=== PATIENT | female | born 1985 | race Caucasian/White ===

== ENCOUNTER 2019-07-27 04:53 | Emergency (ER) | payer OTHER, SELFPAY ==
--- OUTSIDE RECORDS SUMMARY | 2019-07-27 04:55 | XMS REPORT ---
:1985 Author [facility] Address [address] [place] [address] Dr. Hurst [address] [place] [address] Care Team Providers Name Role Phone Unavailable Unavailable Unavailable Problems This patient has no known problems. Allergies, Adverse Reactions, Alerts This patient has no known allergies or adverse reactions. Medications This patient has no known medications.
--- OUTSIDE RECORDS SUMMARY | 2019-07-27 04:56 | XMS REPORT | Summary of Care ---
:1985 Author Organization [facility] Address [address] [place] [address] Care Team Providers Name Role Phone Johny Mendez MD Primary Care Provider Reason for Visit Reason Comments Follow-up Pain Refill Request Encounter Details Date Type Department Care Team Description 07/04/2019 Office Visit [facility] Family Johny Mendez MD Lupus erythematosus, unspecified form (Primary Dx); [place] [address] [address] [facility] Arthralgia, unspecified joint; [facility] [address] Attention deficit disorder (ADD) without hyperactivity; [place], [place] Anxiety; [phone] Other chronic pain [phone] Allergies Active Allergy Reactions Severity Noted Date Comments Morphine Rash 12/04/2016 Sulfa (Sulfonamide Antibiotics) Anaphylaxis 09/20/2015 documented as of this encounter (statuses as of 07/04/2019) Medications Medication Sig Dispensed Refills Start End Date Status Date tiZANidine 4 mg tablet Take 1 tablet 60 tablet 3 Active by mouth 8 every 8 (eight) hours as needed for Pain (scale 4-6). fluocinonide 0.05 % Apply to 30 g 1 Active cream area(s) 2 8 (two) times daily. ondansetron 4 mg tablet Take 1 tablet 30 tablet 1 Active by mouth 8 every 8 (eight) hours as needed for Nausea and Vomiting (N/V). aspirin 81 mg chewable Take 1 tablet 90 tablet 2 Active tabletIndications: by mouth 9 Muscle spasm daily. benzonatate (TESSALON Take 1 20 capsule 0 Active PERLES) 100 mg capsule by 9 capsuleIndications: mouth 3 Acute URI (three) times daily. fluticasone 50 Use 2 Sprays 16 g 0 Active mcg/actuation nasal in each 9 sprayIndications: Acute nostril URI daily. hydroxychloroquine 200 Take 1 tablet 30 tablet 2 Active mg tabletIndications: by mouth 9 Lupus erythematosus, daily. unspecified form HYDROcodone-acetaminoph Take 1 tablet 120 tablet 0 Active en (NORCO) 10-325 mg by mouth 9 tabletIndications: every 6 (six) Other chronic pain hours as needed for Pain (scale 1-3), Pain (scale 4-6) or Pain (scale 7-10). diazePAM (VALIUM) 5 mg Take 1 tablet 90 tablet 1 Active tabletIndications: by mouth 3 9 Anxiety (three) times daily as needed for Muscle Spasms or Anxiety. dextroamphetamine-amphe Take 3 180 tablet 0 Active tamine 10 mg tablets by 9 tabletIndications: mouth 2 (two) Attention deficit times daily. disorder (ADD) without hyperactivity dextroamphetamine-amphe Take 3 180 tablet 0 07/04/20 Discontinued tamine 10 mg tablets by 9 19 tabletIndications: mouth 2 (two) Attention deficit times daily. disorder (ADD) without hyperactivity HYDROcodone-acetaminoph Take 1 tablet 120 tablet 0 07/04/20 Discontinued en (NORCO) 10-325 mg by mouth 9 19 tabletIndications: every 6 (six) Other chronic pain hours as needed for Pain (scale 1-3), Pain (scale 4-6) or Pain (scale 7-10). diazePAM (VALIUM) 5 mg Take 1 tablet 90 tablet 1 07/04/20 Discontinued tabletIndications: by mouth 3 9 19 Anxiety (three) times daily as needed for Muscle Spasms or Anxiety. documented as of this encounter (statuses as of 07/04/2019) Active Problems Patient Care Coordination Note I talked with Dr Worley. He will deliver Ms Gill. He said he could also do weekly BPPs at his office so she does not need NSTs with us at [facility] Problem Noted Date Numbness 01/07/2019 Positive RENAY (antinuclear antibody) 1:80 11/17/2018 Immunization counseling 11/17/2018 Fibromyalgia 11/17/2018 Obesity (BMI 30-39.9) 05/01/2018 38 weeks gestation of 05/01/2018 Arthralgia 05/01/2018 Previous section complicating 05/01/2018 Rupture, membranes, premature 05/01/2018 Liveborn by 05/01/2018 Previous delivery affecting , antepartum 04/15/2018 14 weeks gestation of 11/13/2017 Reactive airway disease with wheezing with acute exacerbation 11/13/2017 URI with cough and congestion 11/13/2017 Antiphospholipid antibody positive 10/22/2017 Previous delivery in first trimester, antepartum 10/22/2017 Lupus 04/20/2017 Right shoulder pain 11/27/2016 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 Anxiety 09/20/2015 Depression 09/20/2015 Joint pain 09/20/2015 Calculus of right kidney 09/20/2015 documented as of this encounter (statuses as of 07/04/2019) Immunizations Name Administration Dates Next Due Tdap 03/08/2018 documented as of this encounter Social History Tobacco Use Types Packs/Day Years Used Date Former Smoker Cigarettes 0.5 3 Quit: 01/16/2019 Smokeless Tobacco: Never Used Comments: 1 ppdx 10 years, Smokes marijuana daily Alcohol Use Drinks/Week oz/Week Comments No Sex Assigned at Date Recorded Not on file Job Start Date Occupation Industry Not on file Not on file Not on file Travel History Travel Start Travel End No recent travel history available. documented as of this encounter Last Filed Vital Signs Vital Sign Reading Time Taken Comments Blood Pressure 100/60 07/04/2019 2:52 PM CDT Pulse - - Temperature - - Respiratory Rate - - Oxygen Saturation - - Inhaled Oxygen Concentration - - Weight 63.5 kg (140 lb) 07/04/2019 2:52 PM CDT Height - - Body Mass Index 25.61 02/16/2019 10:43 AM CDT documented in this encounter Progress Notes Johny Mendez MD - 07/04/2019 3:00 PM CDT Cc: lupus, pain, Chela Renny Mcdermott is a 34 year old female. 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 Medications Outpatient Medications Prior to Visit Medication Sig Dispense Refill diazePAM (VALIUM) 5 mg tablet Take 1 tablet by mouth 3 (three) times daily as needed for Muscle Spasms or Anxiety. 90 tablet 1 HYDROcodone-acetaminophen (NORCO) 10-325 mg tablet Take 1 tablet by mouth every 6 (six) hours asneeded for Pain (scale 1-3), Pain (scale 4-6) or Pain ( scale 7-10). 120 tablet 0 fluticasone 50 mcg/actuation nasal spray Use 2 Sprays in each nostril daily. 16 g 0 benzonatate (TESSALON PERLES) 100 mg capsule Take 1 capsule by mouth 3 ( three) times daily. 20 capsule 0 dextroamphetamine-amphetamine 10 mg tablet Take 3 tablets by mouth 2 (two) times daily. 180 tablet 0 aspirin 81 mg chewable tablet Take 1 tablet by mouth daily. 90 tablet 2 ondansetron 4 mg tablet Take 1 tablet by mouth every 8 (eight) hours as needed for Nausea and Vomiting (N/V). 30 tablet 1 fluocinonide 0.05 % cream Apply to area(s) 2 (two) times daily. 30 g 1 tiZANidine 4 mg tablet Take 1 tablet by mouth every 8 (eight) hours as needed for Pain (scale 4-6). 60 tablet 3 No facility-administered medications prior to visit. Histories Past Medical History: Diagnosis Date ADHD (attention deficit hyperactivity disorder) Arthritis Endometriosis Lupus (systemic lupus erythematosus) Renal stones Right shoulder pain 11/27/2016 Suprascapular neuropathy, right SVT (supraventricular tachycardia) childhood only TIA (transient ischemic attack) august 2016. 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 Needs Financial resource strain: Not on file Food insecurity: Worry: Not on file Inability: Not on file Transportation needs: Medical: Not on file Non-medical: Not on file Tobacco Use Smoking status: Former Smoker Packs/day: 0.50 Years: 3.00 Pack years: 1.50 Types: Cigarettes Last attempt to quit: 01/16/2019 Years since quittin.4 Smokeless tobacco: Never Used Tobacco comment: 1 ppdx 10 years, Smokes marijuana daily Substance and Sexual Activity Alcohol use: No Drug use: Yes Comment: MARIJUANA EDIBLES Sexual activity: Yes Partners: Male control/protection: None Lifestyle Physical activity: Days per week: Not on file Minutes per session: Not on file Stress: Not on file Relationships Social connections: Talks on phone: Not on file Gets together: Not on file Attends judaism service: Not on file Active member of club or organization: Not on file Attends meetings of clubs or organizations: Not on file Relationship status: Not on file Intimate partner violence: Fear of current or ex partner: Not on file Emotionally abused: Not on file Physically abused: Not on file Forced sexual activity: Not on file Other Topics Concern Not on file Social History Narrative In a relationship, 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 Physical Exam Constitutional: She appears well-developed and well-nourished. HENT: Head: Normocephalic and atraumatic. Right Ear: External ear normal. Left Ear: External ear normal. Eyes: Pupils are equal, round, and reactive to light. EOM are normal. Cardiovascular: Normal rate, regular rhythm and normal heart sounds. Pulmonary/Chest: Effort normal. Abdominal: Soft. Musculoskeletal: She exhibits tenderness (neck tight). Skin: Skin is warm. Vitals reviewed. Assessment/Plan Lupus, pain flare Muscle spasm, valium prn, Neck pain ADD, medication refill This visit did not involve counseling and coordination that comprised more than 50% of the visit time.Electronically signed by Johny Mendez MD at 2018 3:03 PM CDTdocumented in this encounter Plan of Treatment Health Maintenance Due Date Last Done Comments VARICELLA VACCINES (1 of 2 - 13+ 1999 2-dose series) PAP SMEAR 2007 INFLUENZA VACCINE (#1) 2019 DTaP,Tdap,and Td Vaccines (2 - Td) 03/08/2028 03/08/2018 PNEUMOCOCCAL 0-64 YEARS COMBINED Aged Out No longer eligible based on SERIES patient's age to complete this topic documented as of this encounter Goals Goal Patient Goal Associated Recent Patient-Stated? Author Type Problems Progress Quit using Tobacco Use No [place], tobacco Siri Leiva MA (cigarettes, smokeless, etc) documented as of this encounter Results Not on filedocumented in this encounter Visit Diagnoses Diagnosis Lupus erythematosus, unspecified form - Primary Arthralgia, unspecified joint Attention deficit disorder (ADD) without hyperactivity Anxiety Anxiety state, unspecified Other chronic pain documented in this encounter Advance Directives Name Relationship Healthcare Agent Relationship Communication Fabiano Young Primary healthcare agent [email or web address]
--- OUTSIDE RECORDS SUMMARY | 2019-07-27 04:56 | XMS REPORT | Summary of Care ---
:1985 Author Organization [facility] Address [address] [place] [address] Care Team Providers Name Role Phone Johny Mendez MD Primary Care Provider Encounter Details Date Type Department Care Team Description 07/04/2019 Orders Only [facility] Doctor Unassigned, No [address] [facility] Name [place] [id number] [address] [facility] [place] [id number] Allergies Active Allergy Reactions Severity Noted Date Comments Morphine Rash 12/04/2016 Sulfa (Sulfonamide Antibiotics) Anaphylaxis 09/20/2015 documented as of this encounter (statuses as of 07/04/2019) Medications Medication Sig Dispensed Refills Start Date End Date Status tiZANidine 4 mg tablet Take 1 tablet by 60 tablet 3 08/05/2018 Active mouth every 8 (eight) hours as needed for Pain (scale 4-6). fluocinonide 0.05 % Apply to area(s) 30 g 1 10/06/2018 Active cream 2 (two) times daily. ondansetron 4 mg Take 1 tablet by 30 tablet 1 10/28/2018 Active tablet mouth every 8 (eight) hours as needed for Nausea and Vomiting (N/V). aspirin 81 mg chewable Take 1 tablet by 90 tablet 2 01/09/2019 Active tabletIndications: mouth daily. Muscle spasm dextroamphetamine-amph Take 3 tablets by 180 tablet 0 02/10/2019 Active etamine 10 mg mouth 2 (two) tabletIndications: times daily. Attention deficit disorder (ADD) without hyperactivity benzonatate (TESSALON Take 1 capsule by 20 capsule 0 02/16/2019 Active PERLES) 100 mg mouth 3 (three) capsuleIndications: times daily. Acute URI fluticasone 50 Use 2 Sprays in 16 g 0 02/22/2019 Active mcg/actuation nasal each nostril sprayIndications: daily. Acute URI HYDROcodone-acetaminop Take 1 tablet by 120 tablet 0 05/17/2019 Active hen (NORCO) 10-325 mg mouth every 6 tabletIndications: (six) hours as Other chronic pain needed for Pain (scale 1-3), Pain (scale 4-6) or Pain (scale 7-10). diazePAM (VALIUM) 5 mg Take 1 tablet by 90 tablet 1 05/17/2019 Active tabletIndications: mouth 3 (three) Anxiety times daily as needed for Muscle Spasms or Anxiety. documented as of this encounter (statuses as of 07/04/2019) Active Problems Patient Care Coordination Note I talked with Dr Worley. He will deliver Ms Gill. He said he could also do weekly BPPs at his office so she does not need NSTs with us at [facility] Problem Noted Date Numbness 01/07/2019 Positive RENAY [...] of this encounter Last Filed Vital Signs Not on filedocumented in this encounter Plan of Treatment Date Type Specialty Care Team Description 07/04/2019 Office Visit Family Medicine Johny Mendez MD [address] [place] [phone] Health Maintenance Due Date Last Done Comments [...] smokeless, etc) documented as of this encounter Procedures Procedure Name Priority Date/Time Associated Diagnosis Comments NO SHOW OR MISSED Routine 07/04/2019 2:45 PM APPOINTMENT POLICY CDT ACKNOWLEDGEMENT documented in this encounter Results Not on filedocumented in this encounter Advance Directives Name Relationship Healthcare Agent Relationship Communication Fabiano Young Primary healthcare agent [email or web address]
--- OUTSIDE RECORDS SUMMARY | 2019-07-27 04:56 | XMS REPORT | Summary of Care ---
:1985 Author Organization [facility] Address [address] [place] [address] Care Team Providers Name Role Phone Johny Mendez MD Primary Care Provider Reason for Visit Reason Comments Refill Request Encounter Details Date Type Department Care Team Description 06/21/2019 Refill [facility] Family Medicine Johny Mendez MD Refill Request - [place] [address] [place] [address] [place] [phone] Allergies Active Allergy Reactions Severity Noted Date Comments Morphine Rash 12/04/2016 Sulfa (Sulfonamide Antibiotics) Anaphylaxis 09/20/2015 documented as of this encounter (statuses as of 06/22/2019) Medications Medication Sig Dispensed Refills Start Date [...] as of this encounter (statuses as of 06/22/2019) Active Problems Patient Care Coordination Note I talked with Dr Worley. He will deliver Ms Gill. He said he could also do weekly BPPs at his office so she does not need NSTs with us at [facility] Problem Noted Date Numbness 01/07/2019 Positive RENAY [...] as of this encounter (statuses as of 06/22/2019) Immunizations Name Administration Dates Next Due Tdap [...] filedocumented in this encounter Plan of Treatment Health Maintenance Due Date Last Done Comments VARICELLA VACCINES (1 of 2 - 13+ 1999 2-dose series) PAP SMEAR 2007 INFLUENZA VACCINE 07/10/2019 DTaP,Tdap,and Td Vaccines (2 - Td) 03/08/2028 03/08/2018 PNEUMOCOCCAL 0-64 YEARS COMBINED Aged Out No longer eligible based on SERIES patient's age to complete this topic documented as of this encounter Goals Goal Patient Goal Associated Recent Patient-Stated? Author Type Problems Progress Quit using Tobacco Use No [place], tobacco Siri Leiva MA (cigarettes, smokeless, etc) documented as of this encounter Results Not on filedocumented in this encounter Visit Diagnoses Diagnosis Attention deficit disorder (ADD) without hyperactivity Other chronic pain documented in this encounter Insurance Payer Benefit Plan / Subscriber ID Effective Dates Phone Address Type Group [facility] [id number] 2018-Prese HMO/PPO/ HEALTHCARE HEALTHCARE PPO nt S documented as of this encounter Advance Directives Name Relationship Healthcare Agent Relationship Communication Fabiano Mcelroy Other Primary healthcare agent [phone]
--- OUTSIDE RECORDS SUMMARY | 2019-07-27 04:56 | XMS REPORT | Summary of Care ---
:1985 Author Organization [facility] Address [address] [place] [address] Care Team Providers Name Role Phone Johny Mendez MD Primary Care Provider Reason for Visit Reason Comments Follow-up Pain Refill Request Encounter Details Date Type Department Care Team Description 07/04/2019 Office Visit [facility] Family Johny Mendez MD Lupus erythematosus, unspecified form (Primary Dx); [place] [address] [address] [facility] Arthralgia, unspecified joint; [facility] 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 Allergies Chela is allergic to morphine and [...] N/A 05/07/2018 Surgeon: Olvin Worley MD; Location: [facility] Labor and Delivery OR Location CHOLECYSTECTOMY FUNDOPLICATION OOPHORECTOMY Right REMOVAL OF FALLOPIAN TUBE TONSILLECTOMY Social History Socioeconomic History Marital status: Single Spouse name: Not on file Number of children: Not on file Years of education: Not on file Highest education level: Not on file Occupational History 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
--- OUTSIDE RECORDS SUMMARY | 2019-07-27 04:56 | XMS REPORT | Summary of Care ---
:1985 Author Organization [facility] Address [address] [place] [address] Care Team Providers Name Role Phone Johny Mendez MD Primary Care Provider Reason for Visit Reason Comments Follow-up Pain Refill Request Encounter Details Date Type Department Care Team Description 07/04/2019 Office Visit [facility] Family Johny Mendez MD Lupus erythematosus, unspecified form (Primary Dx); [place] [address] [address] [facility] Arthralgia, unspecified joint; [facility] 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 Allergies Chela is allergic to morphine and [...] N/A 05/07/2018 Surgeon: Olvin Worley MD; Location: [facility] Labor and Delivery OR Location CHOLECYSTECTOMY FUNDOPLICATION OOPHORECTOMY Right REMOVAL OF FALLOPIAN TUBE TONSILLECTOMY Social History Socioeconomic History Marital status: Single Spouse name: Not on file Number of children: Not on file Years of education: Not on file Highest education level: Not on file Occupational History 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
--- OUTSIDE RECORDS SUMMARY | 2019-07-27 04:57 | XMS REPORT | Summary of Care ---
:1985 Author Organization [facility] Address [address] [place] [address] Care Team Providers Name Role Phone Johny Mendez MD Primary Care Provider Reason for Visit Reason Comments Follow-up Pain Refill Request Encounter Details Date Type Department Care Team Description 07/04/2019 Office Visit [facility] Family Johny Mendez MD Lupus erythematosus, unspecified form (Primary Dx); [place] [address] [address] [facility] Arthralgia, unspecified joint; [facility] 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 Allergies Chela is allergic to morphine and [...] N/A 05/07/2018 Surgeon: Olvin Worley MD; Location: [facility] Labor and Delivery OR Location CHOLECYSTECTOMY FUNDOPLICATION OOPHORECTOMY Right REMOVAL OF FALLOPIAN TUBE TONSILLECTOMY Social History Socioeconomic History Marital status: Single Spouse name: Not on file Number of children: Not on file Years of education: Not on file Highest education level: Not on file Occupational History 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
[2019-07-27 06:04] LABS: Absolute Lymphocytes (CBC) 2.2 K/uL (0.7-4.9); Basophils % 0.7 % (0-1.3); Lymphocytes % 31.7 % (15.3-44.8); MPV 7.7 fL (7.6-11.3)
[2019-07-27 06:06] LABS: Protime INR 1.01
[2019-07-27 06:15] LABS: BUN Blood Urea Nitrogen 12 mg/dL (7-18); Bicarbonate 25 mmol/L (21-32); Glucose Level 83 mg/dL (74-106); Potassium 3.7 mmol/L (3.5-5.1); Sodium Level 142 mmol/L (136-145); Troponin (Emerg Dept Use Only) < 0.02 ng/mL (0.0-0.045)
[2019-07-27] MEDS ORDERED: dexAMETHasone 10 MG/ML VIAL ONE (06:52)
[2019-07-27] MEDS ORDERED: FENTANYL CITR 100 MCG/2 ML ONE (06:53)
[2019-07-27] MEDS ORDERED: LIDOCAINE 5% PATCH TD ONE (07:15)
--- NOTE | 2019-07-27 07:25 | EKG ---
Test Date: 2019-07-27 Test Time: 05:25:48 Pole Tester: BONNIE MEASUREMENT RESULTS: Intervals: Rate: 67 ID: [id number] QRSD: 88 QT: 416 QTc: 439 [place]: P: 53 ID: [id number] QRS: 81 T: 62 INTERPRETIVE STATEMENTS: Normal sinus rhythm Low voltage QRS Septal infarct, age undetermined T wave abnormality, consider anterior ischemia Abnormal ECG Compared to ECG 03/02/2017 15:52:25 Low QRS voltage now present Myocardial infarct finding now present T-wave abnormality now present Possible ischemia now present Sinus arrhythmia no longer present Electronically Signed On 07-27-19 07:24:59 CDT by Rob Núñez
--- NOTE | 2019-07-27 07:39 | ER ---
Nurse's Notes [facility] Name: Chela Mcdermott Age: 34 yrs Sex: Female : 1985 Arrival Date: 07/27/2019 Time: 04:55 Bed 16 Private MD: Diagnosis: Muscle spasm-back and neck;Radiculopathy, cervical region Presentation: 07/27 05:10 Presenting complaint: Patient states: "I have lupus so this is pretty complicated. I jd3 have nerve damage in my neck and have had a blood clot before and I am scare that has happened again. I also have had the sack around my heart inflamed and I am worried that it is getting that way again. my heart feels like it is burning. I also took my blood pressure at home and it was reading very high.". Transition of care: patient was not received from another setting of care. Acute neurological deficit: none identified. Onset of symptoms was July 27, 2019. Risk Assessment: Do you want to hurt yourself or someone else? Patient reports no desire to harm self or others. Initial Sepsis Screen: Does the patient meet any 2 criteria? No. Patient's initial sepsis screen is negative. Does the patient have a suspected source of infection? No. Patient's initial sepsis screen is negative. Care prior to arrival: None. 05:10 Method Of Arrival: Ambulatory jd3 05:10 Acuity: JESUS 3 jd3 Historical: - Allergies: 05:17 Morphine; jd3 05:17 Sulfa (Sulfonamide Antibiotics); jd3 - Home Meds: 05:17 Adderall XR 30 mg Oral cp24 1 cap once daily [Active]; aspirin 325 mg Oral tab 1 tab jd3 twice a day [Active]; hydrocodone-acetaminophen 10-325 mg Oral tab 1 tab every 4 hours [Active]; Valium 5 mg Oral tab 1 tab 3 times per day [Active]; Plaquenil Oral [Active]; - PMHx: 05:17 APLS; Lupus; PE; Suprascapular neuropathy; SVT; jd3 - PSHx: 05:17 ; Cholecystectomy; Appendectomy; knee; Tonsillectomy; Ear Tubes; ablation; jd3 tubal preg; - Immunization history:: Adult Immunizations up to date. - Social history:: Smoking status: Patient uses tobacco products, smokes one pack cigarettes per day. - Ebola Screening: : Patient negative for fever greater than or equal to 101.5 degrees Fahrenheit, and additional compatible Ebola Virus Disease symptoms. Screenin:18 Abuse screen: Denies threats or abuse. Nutritional screening: No deficits noted. jd3 Tuberculosis screening: No symptoms or risk factors identified. Fall Risk Ambulatory Aid- None/Bed Rest/Nurse Assist (0 pts). Gait- Normal/Bed Rest/Wheelchair (0 pts) Mental Status- Oriented to own ability (0 pts). Total Infante Fall Scale indicates No Risk (0-24 pts). Assessment: 05:30 General: Appears in no apparent distress. comfortable, Behavior is calm, cooperative, aa1 appropriate for age. Pain: Complains of pain in scalp, right lateral posterior chest, right lateral anterior chest and neck. Neuro: Level of Consciousness is awake, alert, obeys commands, Oriented to person, place, time, situation, Moves all extremities. Full function Gait is steady, Speech is normal. Cardiovascular: Reports chest pain, Denies diaphoresis, nausea, palpitations, shortness of breath, Heart tones S1 S2 present Capillary refill < 3 seconds Clubbing of nail beds is absent JVD is absent Patient's skin is warm and dry. Rhythm is regular. Respiratory: Airway is patent Respiratory effort is even, unlabored, Respiratory pattern is regular, symmetrical. GI: No signs and/or symptoms were reported involving the gastrointestinal system. : No signs and/or symptoms were reported regarding the genitourinary system. EENT: No signs and/or symptoms were reported regarding the EENT system. Derm: Skin is intact, is healthy with good turgor, Skin is pink, warm \\T\\ dry. Musculoskeletal: Circulation, motion, and sensation intact. Capillary refill < 3 seconds. 07:00 Reassessment: Patient appears in no apparent distress at this time. Patient and/or ph family updated on plan of care and expected duration. Pain level reassessed. Patient is alert, oriented x 3, equal unlabored respirations, skin warm/dry/pink. 08:00 Reassessment: Patient appears in no apparent distress at this time. Patient and/or ph family updated on plan of care and expected duration. Pain level reassessed. Patient is alert, oriented x 3, equal unlabored respirations, skin warm/dry/pink. Pt reports pain relief after lidocaine patch, states, Its working better than the shots they gave me earlier.. Vital Signs: 05:17 BP 135 / 93; Pulse 78; Resp 19 S; Temp 97.8(O); Pulse Ox 97% on R/A; Weight 58.97 kg jd3 (R); Height 5 ft. 2 in. (157.48 cm) (R); Pain 8/10; 07:00 BP 140 / 82; Pulse 71; Resp 16; Pulse Ox 98% on R/A; ph 08:00 BP 125 / 61; Pulse 72; Resp 18; Temp 97.8; Pulse Ox 99% on R/A; ph 05:17 Body Mass Index 23.78 (58.97 kg, 157.48 cm) jd3 ED Course: 04:55 Patient arrived in ED. ds1 05:09 Kvng Boggs, RN is Primary Nurse. jd3 05:13 Triage completed. jd3 05:18 Arm band placed on. jd3 05:18 Patient has correct armband on for positive identification. Bed in low position. Call j light in reach. Side rails up X 1. 05:32 EKG done, by ED staff, reviewed by Burton Villalpando MD. jd3 05:45 Initial lab(s) drawn, by me, sent to lab. Missed attempt(s): 22 gauge in left aa1 antecubital area. Bleeding controlled, band aid applied, catheter tip intact. 05:57 XRAY Chest (1 view) In Process Unspecified. EDMS 06:06 [facility] pm1 06:06 Burton Villalpando MD is Attending Physician. pm1 07:49 Branden Junior MD is Referral Physician. pm1 08:09 No provider procedures requiring assistance completed. Patient did not have IV access ph during this emergency room visit. Administered Medications: 06:52 Drug: fentaNYL (PF) 50 mcg {Note: RASS 0.} Route: IM; Site: left deltoid; aa1 08:04 Follow up: Response: No adverse reaction ph 08:12 Follow up: Response: No adverse reaction; RASS: Drowsy (-1) ph 06:52 Drug: Decadron 10 mg Route: IM; Site: left deltoid; aa1 08:13 Follow up: Response: No adverse reaction ph 07:40 Dru% lidocaine patch 1 patches Route: Topical; Site: affected area; ph 08:12 Follow up: Response: No adverse reaction; Pain is decreased ph 08:00 Drug: TORadol 60 mg Route: IM; Site: right deltoid; ph 08:13 Follow up: Response: No adverse reaction; Medication administered at discharge. ph Outcome: 07:38 Discharge ordered by MD. pm1 08:10 Discharged to home ambulatory, with significant other. ph 08:10 Condition: improved 08:10 Discharge instructions given to patient, Instructed on discharge instructions, follow up and referral plans. medication usage, Demonstrated understanding of instructions, follow-up care, medications, Prescriptions given X 2. 08:12 Patient left the ED. ph Signatures: Dispatcher [employer] EDMS Sarahy Wasserman RN RN aa1 Fanny Adams ds1 Mary Lou Mckinley RN RN ph Kervin Avila, JORDON HYDRAULIC TESTER pm1 Kvgn Boggs RN RN jd3 Corrections: (The following items were deleted from the chart) 08:13 08:04 Response: No adverse reaction ph ph
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
--- NOTE | 2019-07-27 07:42 | RAD REPORT ---
EXAM DESCRIPTION: Severo Single View07/27/2019 5:56 am CLINICAL HISTORY: Chest pain COMPARISON: 2017 FINDINGS: The lungs appear clear of acute infiltrate. The heart is normal size IMPRESSION: No acute abnormalities displayed
[2019-07-27] MEDS ORDERED: KETOROLAC 30 MG/ML INJ ONE (07:51)
[2019-07-27 08:19] VITALS: TEMP 97.8
[2019-07-27 08:22] VITALS: BP 125/61; O2SAT 99
== END 2019-07-27 08:12 | disposition home or self-care (01) ==
LOC: ER 04:53
DX: M54.12 Radiculopathy, cervical region (principal); M62.830 Muscle spasm of back; M62.838 Other muscle spasm; F17.210 Nicotine dependence, cigarettes, uncomplicated; Z79.82 Long term (current) use of aspirin; Z88.2 Allergy status to sulfonamides; Z88.5 Allergy status to narcotic agent
CPT/HCPCS: 36415; 71045; 80048; 84484; 85025; 85610; 93005; 96372; 99284; J1100; J3010

== ENCOUNTER 2020-06-03 04:38 | Emergency (ER) | payer SELFPAY ==
--- OUTSIDE RECORDS SUMMARY | 2020-06-03 04:41 | XMS REPORT | Continuity of Care Document ---
:1985 Author Organization [facility] t Address [address] [place] [address] Care Team Providers Name Role Phone Andrea PIÑA Attending Clinician Problems This patient has no known problems. Allergies, Adverse Reactions, Alerts This patient has no known allergies or adverse reactions. Medications This patient has no known medications. Procedures This patient has no known procedures. Encounters Start End Encounter Admission Attending Care Care Encounter Source Date/Time Date/Time Type Type Clinicians Facility Department ID 2020-05-31 2020-05-31 [id number] 00:00:00 00:00:00 [facility] [id number] [place] [id number] [place] [phone] nal [address] 2020-05-02 2020-05-02 Office Andrea [facility] [id number] 09:22:36 09:37:36 Visit Johny Lazcano [id number] [place] [id number] [facility] [phone] nal 044 Building Results This patient has no known results.
--- OUTSIDE RECORDS SUMMARY | 2020-06-03 04:41 | XMS REPORT | Summary of Care ---
:1985 Author Organization [facility] Address [address] [place] [id number] Care Team Providers Name Role Phone MD Andrea Primary Care Provider Reason for Visit Reason Comments Assessment triage call Encounter Details Date Type Department Care Team Description 03/05/2020 Telephone [facility] Family Delfino Mendez MD Assessment (triage Medicine - [place] [address] call) [facility] [place] [id number] Allergies Active Allergy Reactions Severity Noted Date Comments Morphine Rash 12/04/2016 Sulfa (Sulfonamide Antibiotics) Anaphylaxis 5 documented as of this encounter (statuses as of 03/05/2020) Medications Medication Sig Dispensed Refills Start Date End Date Status fluocinonide 0.05 % cream Apply to 30 g 1 10/06/2018 Active area(s) 2 (two) times daily. ondansetron 4 mg tablet Take 1 tablet 30 tablet 1 10/28/2018 Active by mouth every 8 (eight) hours as needed for Nausea and Vomiting (N/V). aspirin 81 mg chewable Take 1 tablet 90 tablet 2 01/09/2019 Active tabletIndications: Muscle by mouth spasm daily. benzonatate (TESSALON Take 1 capsule 20 capsule 0 02/16/2019 Active PERLES) 100 mg by mouth 3 capsuleIndications: Acute (three) times URI daily. fluticasone 50 Use 2 Sprays 16 g 0 02/22/2019 A ctive mcg/actuation nasal in each sprayIndications: Acute nostril daily. 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 unspecified form CHERATUSSIN AC 10-100 TAKE FIVE (5) 8 oz 0 08/25/2019 Active mg/5 mL ML(S) BY MOUTH solutionIndications: EVERY FOUR Bronchitis HOURS NEEDED FOR COUGH. clarithromycin (BIAXIN) Take 1 tablet 14 tablet 0 08/31/2019 Active 500 mg tabletIndications: by mouth every Bronchitis 12 (twelve) hours. promethazine-codeine Take 5 mL by 8 oz 0 09/01/2019 Active 6.25-10 mg/5 mL mouth 4 (four) syrupIndications: times daily as Bronchitis needed for Cough. tiZANidine 4 mg Take 1 tablet 60 tablet 3 10/04/2019 Active tabletIndications: Other by mouth every chronic pain 8 (eight) hours as needed for Pain (scale 4-6). dextroamphetamine-ampheta Take 3 tablets 180 tablet 0 12/22/19 20 Active mine 10 mg by mouth 2 tabletIndications: (two) times Attention deficit daily. disorder (ADD) without hyperactivity DIAZEPAM 5 mg TAKE ONE (1) 90 tablet 0 01/26/2020 Ac tive tabletIndications: TABLET(S) BY Anxiety MOUTH THREE TIMES A DAY NEEDED FOR MUSCLE SPASMS OR ANXIETY. HYDROcodone-acetaminophen Take 1 tablet 120 tablet 0 0 Active (NORCO) 10-325 mg by mouth every tabletIndications: Other 6 (six) hours chronic pain as needed for Pain (scale 1-3), Pain (scale 4-6) or Pain (scale 7-10). documented as of this encounter (statuses as of 03/05/2020) Active Problems Patient Care Coordination Note I talked with Dr Worley. He will deliver Ms Gill. He said he could also do weekly BPPs at his office so she does not need NSTs with us at [facility] Problem Noted Date Numbness 01/07/2019 Positive LUCIEN (antinuclear antibody) 1:80 11/17/2018 Immunization counseling 11/17/2018 Fibromyalgia 11/17/2018 Obesity (BMI 30-39.9) 05/01/2018 38 weeks gestation of 05/01/2018 Arthralgia 05/01/2018 Previous section complicating 05/01 Rupture, membranes, premature 05/01/2018 Liveborn by 05/01/2018 Previous delivery affecting , antepa rtum 04/15/2018 14 weeks gestation of 11/13/2017 Reactive airway disease with wheezing with acute exace rbation 11/13/2017 URI with cough and congestion 11/13/2017 Antiphospholipid antibody positive 10/22/2017 Previous delivery in first trimester, antepart um 10/22/2017 Lupus 04/20/2017 Right shoulder pain 11/27/2016 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 Anxiety 09/20/2015 Depression 09/20/2015 Joint pain 09/20/2015 Calculus of right kidney 09/20/2015 documented as of this encounter (statuses as of 03/05/2020) Immunizations Name Administration Dates Next Due Tdap 03/08/2018 documented as of this encounter Social History Tobacco Use Types Packs/Day Years Used Date Former Smoker Cigarettes 0.5 3 Quit: 01/17/20 19 Smokeless Tobacco: Never Used Comments: 1 ppdx 10 years, Smokes mariju lucien daily Alcohol Use Drinks/Week oz/Week Comments No [...] Treatment Date Type Specialty Care Team Description 03/05/2020 Telemedicine Visit Family Medicine Care, Provider 12 - Adult Urgent Health Maintenance Due Date Last Done Comments VARICELLA VACCINES (1 of 2 - 2-dose childhood series) 1987 PNEUMOCOCCAL 0-64 YEARS COMBINED SERIES (1 of 1 - 1992 PPSV23) PAP SMEAR 2007 INFLUENZA VACCINE (#1) 2019 DTaP,Tdap,and Td Vaccines (2 - Td) 03/08/2028 03/08/2018 documented as of this encounter Goals Goal Patient Goal Associated Recent Patient-Stated? Author Type Problems Progress Quit using Tobacco Use No [place], tobacco Siri Leiva MA (cigarettes, smokeless, etc) documented as of this encounter Results Not on filedocumented in this encounter Advance Directives Name Relationship Healthcare Agent Relationship Co mmunication Fabiano Mcelroy Other Primary healthcare agent
--- OUTSIDE RECORDS SUMMARY | 2020-06-03 04:42 | XMS REPORT | Summary of Care ---
:1985 Author Organization [facility] Address [address] [place] [address] Care Team Providers Name Role Phone MD Andrea Primary Care Provider Reason for Visit Reason Comments Refill Request Encounter Details Date Type Department Care Team Description 04/03/2020 Refill [facility] Family Medicine Johny Starr MD Refill Request - [address] [address] [place] [address] [phone] Allergies Active Allergy Reactions Severity Noted Date Comments Morphine Rash 12/04/2016 Sulfa (Sulfonamide Antibiotics) Anaphylaxis 5 documented as of this encounter (statuses as of 04/04/2020) Medications Medication Sig Dispensed Refills Start Date [...] Pain (scale 4-6) or Pain (scale 7-10). mupirocin 2 % Apply to 30 g 0 03/05/2020 Activ e ointmentIndications: area(s) 3 Puncture wound of great (three) times toe of right foot, daily. initial encounter documented as of this encounter (statuses as of 04/04/2020) Active Problems Patient Care Coordination Note I talked with Dr Worley. He will deliver Ms Gill. He said he could also do weekly BPPs at his office so she does not need NSTs with us at [facility] Problem Noted Date Numbness 01/07/2019 Positive LUCIEN [...] as of this encounter (statuses as of 04/04/2020) Immunizations Name Administration Dates Next Due Tdap [...] 1992 PPSV23) PAP SMEAR 2007 INFLUENZA VACCINE (Season Ended) 2020 DTaP,Tdap,and Td Vaccines (2 - Td) 03/08/2028 03/08/2018 documented as of this encounter Goals Goal Patient Goal Associated Recent Patient-Stated? Author Type Problems Progress Quit using Tobacco Use No Talamantes, tobacco Siri Leiva MA (cigarettes, smokeless, etc) documented as of this encounter Results Not on filedocumented in this encounter Visit Diagnoses Diagnosis Anxiety Anxiety state, unspecified Attention deficit disorder (ADD) without hyperactivity Other chronic pain documented in this encounter Advance Directives Name Relationship Healthcare Agent Relationship Co mmunication Fabiano Young Primary healthcare agent
--- OUTSIDE RECORDS SUMMARY | 2020-06-03 04:42 | XMS REPORT | Summary of Care ---
:1985 Author Organization [facility] Address [address] [place] [address] Care Team Providers Name Role Phone MD Andrea Primary Care Provider Reason for Visit Reason Comments Refill Request Encounter Details Date Type Department Care Team Description 03/27/2020 Refill [facility] Family Medicine Johny Starr MD Refill Request - [address] [address] [place] [address] [phone] Allergies Active Allergy Reactions Severity Noted Date Comments Morphine Rash 12/04/2016 Sulfa (Sulfonamide Antibiotics) Anaphylaxis 5 documented as of this encounter (statuses as of 03/28/2020) Medications Medication Sig Dispensed Refills Start Date [...] as of this encounter (statuses as of 03/28/2020) Active Problems Patient Care Coordination Note I talked with Dr Worley. He will deliver Ms Gill. He said he could also do weekly BPPs at his office so she does not need NSTs with us at [facility] Problem Noted Date Numbness 01/07/2019 [...] as of this encounter (statuses as of 03/28/2020) Immunizations Name Administration Dates Next Due Tdap [...] Visit Diagnoses Diagnosis Anxiety Anxiety state, unspecified documented in this encounter Advance Directives Name Relationship Healthcare Agent Relationship Co mmunication Fabiano Young Primary healthcare agent
--- OUTSIDE RECORDS SUMMARY | 2020-06-03 04:43 | XMS REPORT | Summary of Care ---
:1985 Author Organization [facility] Address [address] [place] [address] Care Team Providers Name Role Phone MD Andrea Primary Care Provider Reason for Visit Reason Comments Refill Request Encounter Details Date Type Department Care Team Description 04/16/2020 Telephone [facility] Family Delfino Mendez MD Refill Request [address] [place] [address] [place] [address] [phone] Allergies Active Allergy Reactions Severity Noted Date Comments Morphine Rash 12/04/2016 Sulfa (Sulfonamide Antibiotics) Anaphylaxis 5 documented as of this encounter (statuses as of 04/16/2020) Medications Medication Sig Dispensed Refills Start End Date Status Date fluocinonide 0.05 % Apply to 30 g 1 Active cream area(s) 2 8 (two) times daily. ondansetron 4 mg Take 1 30 tablet 1 Act nayan tablet tablet by 8 mouth every 8 (eight) hours as needed for Nausea and Vomiting (N/V). aspirin 81 mg chewable Take 1 90 tablet 2 Active tabletIndications: tablet by 9 Muscle spasm mouth daily. benzonatate (TESSALON Take 1 20 capsule 0 Active PERLES) 100 mg capsule by 9 capsuleIndications: mouth 3 Acute URI (three) times daily. fluticasone 50 Use 2 Sprays 16 g 0 Ac tive mcg/actuation nasal in each 9 sprayIndications: nostril Acute URI daily. hydroxychloroquine 200 Take 1 30 tablet 2 Active mg tabletIndications: tablet by 9 Lupus erythematosus, mouth daily. unspecified form CHERATUSSIN AC 10-100 TAKE FIVE 8 oz 0 Active mg/5 mL (5) ML(S) BY 9 solutionIndications: MOUTH EVERY Bronchitis FOUR HOURS NEEDED FOR COUGH. clarithromycin Take 1 14 tablet 0 Activ e (BIAXIN) 500 mg tablet by 9 tabletIndications: mouth every Bronchitis 12 (twelve) hours. promethazine-codeine Take 5 mL by 8 oz 0 Active 6.25-10 mg/5 mL mouth 4 9 syrupIndications: (four) times Bronchitis daily as needed for Cough. dextroamphetamine-amph Take 3 180 tablet 0 Active etamine 10 mg tablets by 0 tabletIndications: mouth 2 Attention deficit (two) times disorder (ADD) without daily. hyperactivity DIAZEPAM 5 mg TAKE ONE (1) 90 tablet 0 Act nayan tabletIndications: TABLET(S) BY 0 Anxiety MOUTH THREE TIMES A DAY NEEDED FOR MUSCLE SPASMS OR ANXIETY. mupirocin 2 % Apply to 30 g 0 Active ointmentIndications: area(s) 3 0 Puncture wound of (three) great toe of right times daily. foot, initial encounter tiZANidine 4 mg Take 1 60 tablet 3 Acti ve tabletIndications: tablet by 0 Other chronic pain mouth every 8 (eight) hours as needed for Pain (scale 4-6). HYDROcodone-acetaminop Take 1 120 tablet 0 Active hen (NORCO) 10-325 mg tablet by 0 tabletIndications: mouth every Other chronic pain 6 (six) hours as needed for Pain (scale 1-3), Pain (scale 4-6) or Pain (scale 7-10). tiZANidine 4 mg Take 1 60 tablet 3 04/16/20 Disc ontinued tabletIndications: tablet by 9 20 ( Reorder) Other chronic pain mouth every 8 (eight) hours as needed for Pain (scale 4-6). HYDROcodone-acetaminop Take 1 120 tablet 0 Discontinued hen (NORCO) 10-325 mg tablet by 0 20 (Reorder) tabletIndications: mouth every Other chronic pain 6 (six) hours as needed for Pain (scale 1-3), Pain (scale 4-6) or Pain (scale 7-10). documented as of this encounter (statuses as of 04/16/2020) Active Problems Patient Care Coordination Note I talked with Dr Worley. He will deliver Ms Gill. He said he could also do weekly BPPs at his office so she does not need NSTs with us at [facility] Problem Noted Date Numbness 01/07/2019 Positive LUCIEN [...] as of this encounter (statuses as of 04/16/2020) Immunizations Name Administration Dates Next Due Tdap [...] Treatment Date Type Specialty Care Team Description 05/02/2020 Office Visit Family Medicine Johny Mendez MD [address] [place] [address] [phone] Health Maintenance Due Date Last Done Comments VARICELLA VACCINES (1 of 2 - 2-dose childhood series) 1987 PNEUMOCOCCAL 0-64 YEARS COMBINED SERIES (1 of 1 - 1992 PPSV23) PAP SMEAR 2007 Depression Screening 07/04/2020 07/04/2019 INFLUENZA VACCINE (Season Ended) 2020 DTaP,Tdap,and Td Vaccines (2 - Td) 03/08/2028 03/08/2018 documented as of this encounter Goals Goal Patient Goal Associated Recent Patient-Stated? Author Type Problems Progress Quit using Tobacco Use No Talamantes, tobacco Siri Leiva MA (cigarettes, smokeless, etc) documented as of this encounter Results Not on filedocumented in this encounter Visit Diagnoses Diagnosis Other chronic pain documented in this encounter Advance Directives Name Relationship Healthcare Agent Relationship Co mmunication Fabiano Young Primary healthcare agent
--- OUTSIDE RECORDS SUMMARY | 2020-06-03 04:44 | XMS REPORT | Summary of Care ---
:1985 Author Organization [facility] Address [address] [place] [address] Care Team Providers Name Role Phone MD Andrea Primary Care Provider Reason for Visit Reason Comments Follow-up Refill Request Encounter Details Date Type Department Care Team Description 05/02/2020 Office Visit [facility] Johny Mendez Attention d eficit disorder (ADD) without hyperactivity (Primary Dx); Pediatric and Adult MD Anxiety; Primary Care- [address] [place] [address] Chronic rig t shoulder pain; [facility] Arthralgia, unspecified joint [address] [place] [address], [address] [address] [place], [place] [phone] [address] [phone] Allergies Active Allergy Reactions Severity Noted Date Comments Morphine Rash 12/04/2016 Sulfa (Sulfonamide Antibiotics) Anaphylaxis 5 documented as of this encounter (statuses as of 05/02/2020) Medications Medication Sig Dispensed Refills Start End [...] times Bronchitis daily as needed for Cough. mupirocin 2 % Apply to 30 g [...] Pain (scale 4-6) or Pain (scale 7-10). dextroamphetamine-amph Take 3 180 tablet 0 Active etamine 10 mg tablets by 0 tabletIndications: mouth 2 Attention deficit (two) times disorder (ADD) without daily. hyperactivity diazePAM 5 mg TAKE ONE (1) 30 tablet 5 Act nayan tabletIndications: TABLET(S) BY 0 Anxiety MOUTH THREE TIMES A DAY NEEDED FOR MUSCLE SPASMS OR ANXIETY. dextroamphetamine-amph Take 3 180 tablet 0 Discontinued etamine 10 mg tablets by 0 20 (Reor jeb) tabletIndications: mouth 2 Attention deficit (two) times disorder (ADD) without daily. hyperactivity diazePAM 5 mg TAKE ONE (1) 30 tablet 0 05/02/20 Dis continued tabletIndications: TABLET(S) BY 0 20 (Reorder) Anxiety MOUTH THREE TIMES A DAY NEEDED FOR MUSCLE SPASMS OR ANXIETY. documented as of this encounter (statuses as of 05/02/2020) Active Problems Patient Care Coordination Note I talked with Dr Worley. He will deliver Ms Gill. He said he could also do weekly BPPs at his office so she does not need NSTs with us at [facility] Problem Noted Date Numbness 01/07/2019 Positive [...] as of this encounter (statuses as of 05/02/2020) Immunizations Name Administration Dates Next Due TDAP 03/08/2018 documented as of this encounter Social [...] Travel End No recent travel history available. COVID-19 Exposure Response Date Recorded In the last month, have you been in contact with No / Unsure 05/02/2020 9:22 AM CDT someone who was confirmed or suspected to have Coronavirus / COVID-19? documented as of this encounter Last Filed Vital Signs Vital Sign Reading Time Taken Comments Blood Pressure 110/70 05/02/2020 9:23 AM CDT Pulse - - Temperature - - Respiratory Rate - - Oxygen Saturation - - Inhaled Oxygen Concentration - - Weight 62.6 kg (138 lb) 05/02/2020 9:23 AM CDT Height - - Body Mass Index 25.24 02/16/2019 10:43 AM CDT documented in this encounter Progress Notes Johny Mendez MD - 05/02/2020 9:30 AM CDT Cc: add, anxiety Chief Complaint Patient presents with Follow-up Refill Request Chela Mcdermott is a 35 year old female. Here for f/u, add, anxiety, chronic pain Allergies Chela is allergic to morphine and sulfa (sulfonamide antibiotics). Medications Outpatient Medications Prior to Visit Medication Sig Dispense Refill diazePAM 5 mg tablet TAKE ONE (1) TABLET(S) BY MOUTH THREE TIMES A DAY NEEDED FOR MUSCLE SPASMS OR ANXIETY. 30 tablet 0 HYDROcodone-acetaminophen (NORCO) 10-325 mg tablet Take 1 tablet by mouth every 6 (six) hours asneeded for Pain (scale 1-3), Pain (scale 4-6) or Pain (scale 7-10). 120 tablet 0 tiZANidine 4 mg tablet Take 1 tablet by mouth every 8 (eight) hours as needed for Pain (scale 4-6). 60 tablet 3 dextroamphetamine-amphetamine 10 mg tablet Take 3 tablets by mouth 2 (two) times daily. 180 tablet 0 mupirocin 2 % ointment Apply to area(s) 3 (three) times daily. 30 g 0 promethazine-codeine 6.25-10 mg/5 mL syrup Take 5 mL by mouth 4 (four) times daily as needed forCough. 8 oz 0 clarithromycin (BIAXIN) 500 mg tablet Take 1 tablet by mouth every 12 (twelve) hours. 14 tablet 0 CHERATUSSIN AC 10-100 mg/5 mL solution TAKE FIVE (5) ML(S) BY MOUTH EVERY FOUR HOURS NEEDED FOR COUGH. 8 oz 0 hydroxychloroquine 200 mg tablet Take 1 tablet by mouth daily. 30 tablet 2 fluticasone 50 mcg/actuation nasal spray Use 2 Sprays in each nostril daily. 16 g 0 benzonatate (TESSALON PERLES) 100 mg capsule Take 1 capsule by mouth 3 (three) times daily. 20 capsule 0 aspirin 81 mg chewable tablet Take 1 tablet by mouth daily. 90 tablet 2 ondansetron 4 mg tablet Take 1 tablet by mouth every 8 (eight) hours as needed for Nausea and Vomiting (N/V). 30 tablet 1 fluocinonide 0.05 % cream Apply to area(s) 2 (two) times daily. 30 g 1 No facility-administered medications prior to visit. Histories Past Medical History: Diagnosis Date ADHD (attention deficit hyperactivity disorder) Arthritis Endometriosis Lupus (systemic lupus erythematosus) Renal stones Right shoulder pain 11/27/2016 Suprascapular neuropathy, right SVT (supraventricular tachycardia) childhood only TIA (transient ischemic attack) august 2016. 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 Needs Financial resource strain: Not on file Food insecurity: Worry: Not on file Inability: Not on file Transportation needs: Medical: Not on file Non-medical: Not on file Tobacco Use Smoking status: Former Smoker Packs/day: 0.50 Years: 3.00 Pack years: 1.50 Types: Cigarettes Last attempt to quit: 01/16/2019 Years since quittin.2 Smokeless tobacco: Never Used Tobacco comment: 1 [...] file Gets together: Not on file Attends shinto service: Not on file Active member of [...] Narrative 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 She appears well- developed and well-nourished. HENT: Head: Normocephalic and atraumatic. Right Ear: External ear normal. Left Ear: External ear normal. Mouth/Throat: Oropharynx is clear and moist. Cardiovascular: Normal rate, regular rhythm and normal heart sounds. Pulmonary/Chest: Effort normal and breath sounds normal. Abdominal: Soft. Musculoskeletal: Normal range of motion. Neurological: She is alert and oriented to person, place, and time. Skin: Skin is warm. Vitals reviewed. Assessment/Plan ADD, medication refill Chronic pain, continue medication, Anxiety, medication refill This visit did not involve counseling and coordination that comprised more than 50% of the visit time. documented in this encounter Plan of Treatment Health [...] Diagnosis Attention deficit disorder (ADD) without hyperactivity - Primary Anxiety Anxiety state, unspecified Chronic right shoulder pain Pain in joint, shoulder region Arthralgia, unspecified joint documented in this encounter Advance Directives Name Relationship Healthcare Agent Relationship Co mmunication Fabiano Young Primary healthcare agent "
--- OUTSIDE RECORDS SUMMARY | 2020-06-03 04:44 | XMS REPORT | Summary of Care ---
:[address] [facility] Address [address] [place] [address] Care Team Providers Name Role Phone MD Andrea Primary Care Provider Reason for Visit Reason Comments Refill Request Encounter Details Date Type Department Care Team Description 04/18/2020 Refill [facility] Family Medicine Johny Starr MD Refill Request - [address] [place] [address] [place] [address] [phone] Allergies Active Allergy Reactions Severity Noted Date Comments Morphine Rash 12/04/2016 Sulfa (Sulfonamide Antibiotics) Anaphylaxis 5 documented as of this encounter (statuses as of 04/18/2020) Medications Medication Sig Dispensed Refills Start End [...] (two) times disorder (ADD) without daily. hyperactivity mupirocin 2 % Apply to 30 g [...] (scale 4-6) or Pain (scale 7-10). diazePAM 5 mg TAKE ONE (1) 30 tablet 0 Act nayan tabletIndications: TABLET(S) BY 0 Anxiety MOUTH THREE TIMES A DAY NEEDED FOR MUSCLE SPASMS OR ANXIETY. DIAZEPAM 5 mg TAKE ONE (1) 90 tablet 0 04/18/20 Dis continued tabletIndications: TABLET(S) BY 0 20 (Reorder) Anxiety MOUTH THREE TIMES A DAY NEEDED FOR MUSCLE SPASMS OR ANXIETY. documented as of this encounter (statuses as of 04/18/2020) Active Problems Patient Care Coordination Note I [...] as of this encounter (statuses as of 04/18/2020) Immunizations Name Administration Dates Next Due Tdap [...] Office Visit Family Medicine Johny Mendez MD [address] [place] [phone] Health Maintenance Due Date Last Done [...]
--- OUTSIDE RECORDS SUMMARY | 2020-06-03 04:45 | XMS REPORT | Summary of Care ---
:1985 Author Organization [facility] Address [address] [place] [address] Care Team Providers Name Role Phone MD Andrea Primary Care Provider Reason for Visit Reason Comments Follow-up Refill Request Encounter Details Date Type Department Care Team Description 05/02/2020 Office Visit [facility] Johny Mendez Attention d eficit disorder (ADD) without hyperactivity (Primary Dx); Pediatric and Adult MD Anxiety; Primary Care- [address] [place] [address] Chronic rig t shoulder pain; [facility] Arthralgia, unspecified joint [address] [place] [address], [address] [address] [place], [place] [phone] [address] [phone] Allergies Active Allergy Reactions Severity Noted Date [...] N/A 05/07/2018 Surgeon: Olvin Worley MD; Location: [facility] Labor and Delivery OR Location CHOLECYSTECTOMY FUNDOPLICATION OOPHORECTOMY Right REMOVAL OF FALLOPIAN TUBE TONSILLECTOMY Social History Socioeconomic History Marital status: Single Spouse name: Not on file Number of children: Not on file Years of education: Not on file Highest education level: Not on file Occupational History 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
--- OUTSIDE RECORDS SUMMARY | 2020-06-03 04:45 | XMS REPORT | Summary of Care ---
:1985 Author Organization [facility] Address [address] [place] [address] Care Team Providers Name Role Phone MD Andrea Primary Care Provider Reason for Visit Reason Comments Refill Request Encounter Details Date Type Department Care Team Description 05/31/2020 Refill [facility] Family Medicine Johny Starr MD Refill Request - [address] [place] [address] [place] [address] [phone] Allergies Active Allergy Reactions Severity Noted Date Comments Morphine Rash 12/04/2016 Sulfa (Sulfonamide Antibiotics) Anaphylaxis 5 documented as of this encounter (statuses as of 05/31/2020) Medications Medication Sig Dispensed Refills Start End [...] hours as needed for Pain (scale 4-6). dextroamphetamine-amph Take 3 180 tablet 0 Active etamine 10 mg tablets by 0 tabletIndications: mouth 2 Attention deficit (two) times disorder (ADD) without daily. hyperactivity HYDROcodone-acetaminop Take 1 120 tablet 0 Active hen (NORCO) 10-325 mg tablet by 0 tabletIndications: mouth every chronic pain 6 (six) hours as needed for Pain (scale 1-3), Pain (scale 4-6) or Pain (scale 7-10). Indications: chronic pain diazePAM 5 mg TAKE ONE (1) 30 tablet 5 Act nayan tabletIndications: TABLET(S) BY 0 Anxiety MOUTH THREE TIMES A DAY NEEDED FOR MUSCLE SPASMS OR ANXIETY. HYDROcodone-acetaminop Take 1 120 tablet 0 Discontinued hen (NORCO) 10-325 mg tablet by 0 20 (Reorder) tabletIndications: mouth every Other chronic pain 6 (six) hours as needed for Pain (scale 1-3), Pain (scale 4-6) or Pain (scale 7-10). diazePAM 5 mg TAKE ONE (1) 30 tablet 5 05/31/20 Dis continued tabletIndications: TABLET(S) BY 0 20 (Reorder) Anxiety MOUTH THREE TIMES A DAY NEEDED FOR MUSCLE SPASMS OR ANXIETY. documented as of this encounter (statuses as of 05/31/2020) Active Problems Patient Care Coordination Note I talked with Dr Worley. He will deliver Ms Gill. He said he could also do weekly BPPs at his office so she does not need NSTs with us at [facility] Problem Noted Date Numbness 01/07/2019 [...] as of this encounter (statuses as of 05/31/2020) Immunizations Name Administration Dates Next Due TDAP [...] 2007 Depression Screening 07/04/2020 07/04/2019 INFLUENZA VACCINE (#1) 2020 DTaP,Tdap,and Td Vaccines (2 - Td) 03/08/2028 03/08/2018 documented as of this encounter Goals Goal Patient Goal Associated Recent Patient-Stated? Author Type Problems Progress Quit using Tobacco Use No Talamantes, tobacco Siri Leiva MA (cigarettes, smokeless, etc) documented as of this encounter Results Not on filedocumented in this encounter Visit Diagnoses Diagnosis Other chronic pain Anxiety Anxiety state, unspecified documented in this encounter Advance Directives Name Relationship Healthcare Agent Relationship Co mmunication Fabiano Mcelroy Other Primary healthcare agent
[2020-06-03 05:02] LABS: Urine Blood 1+ (NEG); Urine Glucose NEGATIVE (NEG); Urine Protein NEGATIVE (NEG); Urine pH 5.5 (5.0-7.0)
[2020-06-03] MEDS ORDERED: KETOROLAC 30 MG/ML INJ ONE (05:12)
[2020-06-03] MEDS ORDERED: NA CHLORIDE 0.9% 1,000 ML ONE (05:12)
[2020-06-03] MEDS ORDERED: ONDANSETRON 4 MG/2 ML VIAL ONE ×2 (05:12→06:04)
[2020-06-03 06:17] LABS: Absolute Lymphocytes (CBC) 1.1 K/uL (0.7-4.9); Basophils % 0.3 % (0-1.3); Hematocrit 38.2 % (36.0-45.0); Lymphocytes % 10.1 % (15.3-44.8); MPV 7.7 fL (7.6-11.3)
[2020-06-03 06:45] LABS: ALT/SGPT 20 U/L (12-78); AST/SGOT 18 U/L (15-37); Albumin 3.4 g/dL (3.4-5.0); Alkaline Phosphatase 73 U/L (45-117); BUN Blood Urea Nitrogen 15 mg/dL (7-18); Bicarbonate 25 mmol/L (21-32); Bilirubin Direct < 0.1 mg/dL (0-0.2); Bilirubin Total 0.3 mg/dL (0.2-1.0); Glucose Level 96 mg/dL (74-106); Lipase 213 U/L (73-393); Potassium 4.1 mmol/L (3.5-5.1); Protein, Total 6.7 g/dL (6.4-8.2); Sodium Level 141 mmol/L (136-145)
[2020-06-03] MEDS ORDERED: FENTANYL CITR 100 MCG/2 ML ONE (07:12)
--- NOTE | 2020-06-03 07:18 | EDPHYS ---
Physician Documentation [facility] Name: Chela Mcdermott Age: 35 yrs Sex: Female : 1985 Arrival Date: 06/03/2020 Time: 04:39 Bed 6 Private MD: ED Physician Yinka Nicholas HPI: 06/03 05:23 This 35 yrs old Female presents to ER via Wheelchair with complaints of tw4 Abdominal Pain. 05:23 The patient presents with abdominal pain in the left lower quadrant. Onset: The tw4 symptoms/episode began/occurred just prior to arrival, today. The symptoms radiate to the left flank. Associated signs and symptoms: none. The symptoms are described as sharp. Modifying factors: The symptoms are alleviated by nothing, the symptoms are aggravated by nothing. Severity of pain: At its worst the pain was moderate in the emergency department the pain is unchanged. The patient has not experienced similar symptoms in the past. 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 - Social history:: Smoking status: Patient reports the use of cigarette tobacco products, Patient uses alcohol, street drugs, marijuana. ROS: 05:23 Constitutional: Negative for fever, chills, and weight loss, Eyes: Negative for injury, tw4 pain, redness, and discharge, Cardiovascular: Negative for chest pain, palpitations, and edema, Respiratory: Negative for shortness of breath, cough, wheezing, and pleuritic chest pain, Abdomen/GI: Negative for abdominal pain, nausea, vomiting, diarrhea, and constipation, Back: Negative for injury and pain, MS/Extremity: Negative for injury and deformity, Skin: Negative for injury, rash, and discoloration. Exam: 05:23 Constitutional: This is a well developed, well nourished patient who is awake, alert, tw4 and in no acute distress. Head/Face: Normocephalic, atraumatic. Chest/axilla: Normal chest wall appearance and motion. Nontender with no deformity. No lesions are appreciated. Cardiovascular: Regular rate and rhythm with a normal S1 and S2. No gallops, murmurs, or rubs. Normal PMI, no JVD. No pulse deficits. Respiratory: Lungs have equal breath sounds bilaterally, clear to auscultation and percussion. No rales, rhonchi or wheezes noted. No increased work of breathing, no retractions or nasal flaring. MS/ Extremity: Pulses equal, no cyanosis. Neurovascular intact. Full, normal range of motion. Neuro: Awake and alert, GCS 15, oriented to person, place, time, and situation. Cranial nerves II-XII grossly intact. Motor strength 5/5 in all extremities. Sensory grossly intact. Cerebellar exam normal. Normal gait. 05:23 Abdomen/GI: Inspection: abdomen appears normal, Bowel sounds: diminished, Palpation: moderate abdominal tenderness, in the left lower quadrant. 05:23 Back: CVA tenderness, is noted on the left. Vital Signs: 04:55 BP 146 / 98; Pulse 92; Resp 18; Pulse Ox 100% on R/A; Weight 61.23 kg; Height 5 ft. 3 mg2 in. (160.02 cm); 05:11 Temp 98.9(TE); mg2 06:22 BP 123 / 74; Pulse 96; Resp 18; Pulse Ox 100% on R/A; ea 07:00 BP 104 / 57; Pulse 99; Resp 16; Pulse Ox 99% ; bp 04:55 Body Mass Index 23.91 (61.23 kg, 160.02 cm) mg2 MDM: 04:49 Patient medically screened. tw4 07:22 Data reviewed: vital signs, nurses notes. Data interpreted: Pulse oximetry: tw4 Interpretation: normal. Counseling: I had a detailed discussion with the patient and/or guardian regarding: the historical points, exam findings, and any diagnostic results supporting the discharge/admit diagnosis, lab results, radiology results. Special discussion: Based on the patient's Hx, exam, and Dx evaluation, there is no indication for emergent surgery or inpatient Tx. It is understood by the patient/guardian that if the Sx's persist or worsen they need to return immediately for re-evaluation. I discussed with the patient/guardian in detail that at this point there is no indication for admission to the hospital. It is understood, however, that if the symptoms persist or worsen the patient needs to return immediately for re-evaluation. 06/03 04:50 Order name: Basic Metabolic Panel 06/03 04:50 Order name: CBC with Diff 06/03 06:55 Interpretation: Normal except: MCV 88.9; NEUT A 9.2; MN% 1.1; LYM% 10.1; JAQUELINE% 85.8. 06/03 04:50 Order name: Hepatic Function; Complete Time: 06:55 [facility] 06/03 06:55 Interpretation: Normal except: A/G 1.0. 06/03 04:50 Order name: Lipase; Complete Time: 06:55 [facility] 06/03 06:55 Interpretation: Within normal limits: LIP 213. 06/03 04:50 Order name: Basic Metabolic Panel; Complete Time: 06:55 EDMS 06/03 06:55 Interpretation: Normal except: CL 111; GFR 82. 06/03 04:57 Order name: Urine Dipstick--Ancillary (enter results); Complete Time: 06:55 [facility] 06/03 04:50 Order name: IV Saline Lock; Complete Time: 05:11 [facility] 06/03 04:50 Order name: Labs collected and sent; Complete Time: 06:27 [facility] 06/03 04:57 Order name: CT Stone Protocol 4 Administered Medications: 05:10 Drug: Zofran (Ondansetron) 4 mg Route: IVP; Site: right hand; mg2 05:29 Follow up: Response: No adverse reaction; Nausea is decreased ea 05:10 Drug: NS 0.9% 1000 ml Route: IV; Rate: 1 bolus; Site: right hand; mg2 07:22 Follow up: Response: No adverse reaction; IV Status: Completed infusion; IV Intake: jl7 1000ml 05:10 Drug: TORadol 30 mg Route: IVP; Site: right hand; mg2 05:29 Follow up: Response: No adverse reaction; Pain is decreased ea 07:13 Drug: fentaNYL (PF) 25 mcg Route: IVP; Site: right hand; bp 07:28 Follow up: Response: No adverse reaction; Pain is decreased jl7 Disposition: 06/03/20 07:17 Discharged to Home. Impression: Abdominal tenderness. - Condition is Stable. - Discharge Instructions: Abdominal Pain, Adult, [id number]. - Prescriptions for Ibuprofen 800 mg Oral Tablet - take 1 tablet by ORAL route every 8 hours As needed take with food; 30 tablet. - Medication Reconciliation Form, Thank You Letter, Antibiotic Education, Prescription Opioid Use form. - Follow up: Private Physician; When: Upon discharge from the Emergency Department; Reason: Recheck today's complaints, Continuance of care, Re-evaluation by your physician. - Problem is new. - Symptoms have improved. Signatures: Dispatcher [employer] EDMS Chin Cates RN RN jl7 Bry Diallo RN RN Yinka Tejeda MD MD tw4 Jersey Amaya RN RN mg2 Antunez, Elena RN ea Corrections: (The following items were deleted from the chart) 07:29 07:17 06/03/2020 07:17 Discharged to Home. Impression: Abdominal tenderness. Condition jl7 is Stable. Forms are Medication Reconciliation Form, Thank You Letter, Antibiotic Education, Prescription Opioid Use. Follow up: Private Physician; When: Upon discharge from the Emergency Department; Reason: Recheck today's complaints, Continuance of care, Re-evaluation by your physician. Problem is new. Symptoms have improved. tw4
--- NOTE | 2020-06-03 07:18 | ER ---
Nurse's Notes [facility] Name: Chela Mcdermott Age: 35 yrs Sex: Female : 1985 Arrival Date: 06/03/2020 Time: 04:39 Bed 6 Private MD: Diagnosis: Abdominal tenderness Presentation: 06/03 04:55 Chief complaint: Patient states: i have abdominal pain and vomiting that started after mg2 3 am today. Coronavirus screen: Patient denies a cough. Patient denies shortness of breath or difficulty breathing. Patient denies measured and/or subjective temperature greater than 100.4F prior to today's visit. Patient denies travel on a cruise ship or to a country the [facility] currently lists as an affected area. Patient denies contact with known and/or suspected case of COVID-19. Patient instructed to continue to wear a mask when interacting with others. Patient moved to private room, placed in contact and droplet isolation with eye protection until further assessment. Ebola Screen: No symptoms or risks identified at this time. Initial Sepsis Screen: Does the patient meet any 2 criteria? No. Patient's initial sepsis screen is negative. Does the patient have a suspected source of infection? No. Patient's initial sepsis screen is negative. Risk Assessment: Do you want to hurt yourself or someone else? Patient reports no desire to harm self or others. Onset of symptoms was June 03, 2020. 04:55 Method Of Arrival: Wheelchair mg2 04:55 Acuity: JESUS 3 mg2 Triage Assessment: 05:00 General: Appears in no apparent distress. comfortable, Behavior is calm, cooperative. mg2 Pain: Complains of pain in abdomen Pain does not radiate. Pain currently is 10 out of 10 on a pain scale. Quality of pain is described as aching. EENT: No deficits noted. Neuro: Level of Consciousness is awake, alert, obeys commands, Oriented to person, place, time, situation. Cardiovascular: Capillary refill < 3 seconds Patient's skin is warm and dry. Respiratory: Airway is patent Respiratory effort is even, unlabored, Respiratory pattern is regular, symmetrical. GI: Abdomen is flat, non-distended, Reports vomiting. : Reports pain in left flank(s). Derm: Skin is intact, is healthy with good turgor, Skin is pink, warm \T\ dry. normal. Musculoskeletal: Circulation, motion, and sensation intact. Capillary refill < 3 seconds. 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 - Social history:: Smoking status: Patient reports the use of cigarette tobacco products, Patient uses alcohol, street drugs, marijuana. Screenin:11 Abuse screen: Denies threats or abuse. Denies injuries from another. Nutritional mg2 screening: No deficits noted. Tuberculosis screening: No symptoms or risk factors identified. Fall Risk IV access (20 points). Assessment: 05:11 General: see triage assessment. mg2 05:12 Reassessment: devops engineer called and she will come in 15 minutes. mg2 05:13 Reassessment: Patient and/or family updated on plan of care and expected duration. Pain ea level reassessed. pt taken to CT. 05:31 Reassessment: Patient and/or family updated on plan of care and expected duration. Pain ea level reassessed. Patient is alert, oriented x 3, equal unlabored respirations, skin warm/dry/pink. Pt returned from CT, reports pain medication has taken the edge off. 06:22 Reassessment: Patient and/or family updated on plan of care and expected duration. Pain ea level reassessed. Patient is alert, oriented x 3, equal unlabored respirations, skin warm/dry/pink. 07:00 Reassessment: RECD REPORT FROM NATALIE REDDY. 35YO WF P/W FLANK PAIN, R/O KIDNEY STONE. ALL bp CURRENT ORDERS COMPLETE, CT RESULTS PENDING. 07:28 Reassessment: Patient appears in no apparent distress at this time. Patient is alert, jl7 oriented x 3, equal unlabored respirations, skin warm/dry/pink. Patient states feeling better. Patient states symptoms have improved. Vital Signs: 04:55 BP 146 / 98; Pulse 92; Resp 18; Pulse Ox 100% on R/A; Weight 61.23 kg; Height 5 ft. 3 mg2 in. (160.02 cm); 05:11 Temp 98.9(TE); mg2 06:22 BP 123 / 74; Pulse 96; Resp 18; Pulse Ox 100% on R/A; ea 07:00 BP 104 / 57; Pulse 99; Resp 16; Pulse Ox 99% ; bp 04:55 Body Mass Index 23.91 (61.23 kg, 160.02 cm) mg2 ED Course: 04:39 Patient arrived in ED. ds1 04:49 Yinka Nicholas MD is Attending Physician. tw4 04:55 Jersey Amaya, BARRY is Primary Nurse. mg2 04:56 Triage completed. mg2 05:01 Arm band placed on. mg2 05:05 Missed attempt(s): 20 gauge in right forearm. ea 05:06 Radiology exam delayed due to IV and labs being done at this time. kw1 05:10 Inserted saline lock: 22 gauge 24 gauge in right antecubital area, using aseptic ds4 technique. hand, using aseptic technique. Missed attempt(s):. 05:11 Patient has correct armband on for positive identification. Pulse ox on. NIBP on. Door mg2 closed. Warm blanket given. 05:11 No provider procedures requiring assistance completed. mg2 05:35 CT Stone Protocol In Process Unspecified. EDMS 07:28 IV discontinued, intact, No redness/swelling at site. jl7 Administered Medications: 05:10 Drug: Zofran (Ondansetron) 4 mg Route: IVP; Site: right hand; mg2 05:29 Follow up: Response: No adverse reaction; Nausea is decreased ea 05:10 Drug: NS 0.9% 1000 ml Route: IV; Rate: 1 bolus; Site: right hand; mg2 07:22 Follow up: Response: No adverse reaction; IV Status: Completed infusion; IV Intake: jl7 1000ml 05:10 Drug: TORadol 30 mg Route: IVP; Site: right hand; mg2 05:29 Follow up: Response: No adverse reaction; Pain is decreased ea 07:13 Drug: fentaNYL (PF) 25 mcg Route: IVP; Site: right hand; bp 07:28 Follow up: Response: No adverse reaction; Pain is decreased jl7 Intake: 07:22 IV: 1000ml; Total: 1000ml. jl7 Outcome: 07:17 Discharge ordered by . jose juan 07:28 Discharged to home ambulatory. jl7 07:28 Condition: stable 07:28 Discharge instructions given to patient, Instructed on discharge instructions, follow up and referral plans. medication usage, Demonstrated understanding of instructions, follow-up care, medications, Prescriptions given X 1. 07:29 Patient left the ED. jl7 Signatures: Dispatcher [employer] EDUT Fanny Adams ds1 Joey Arechiga ds4 Chin Cates RN RN jl7 Natalie Ochoa RN RN Bry Porter RN RN bp Cynthia Finch kw1 Yinka Nicholas MD MD tw4 Jersey Amaya, RN RN mg2
[2020-06-03] MEDS ORDERED: KCL 20 MEQ/100 mL IVPB 20 MEQ/100 ML BAG IV ONE (07:25)
[2020-06-03 07:54] VITALS: TEMP 98.9
[2020-06-03 07:58] VITALS: BP 104/57; O2SAT 99
[2020-06-03 08:02] LABS: Blood Morphology Comment NOT SEEN (NOT SEEN); Platelet Estimate ADEQ
--- NOTE | 2020-06-04 09:21 | RAD REPORT ---
EXAM DESCRIPTION: CT - Stone Protocol - 06/03/2020 6:30 am CLINICAL HISTORY: KIDNEY STONES COMPARISON: None Available. TECHNIQUE: CT of the abdomen and pelvis without IV contrast. Evaluation of the solid organs and vasc ulature is suboptimal due to lack of IV contrast. FINDINGS: Lung Bases: The visualized lung bases are clear. Bones: Degenerative endplate spondylosis and facet arthropathy. Abdomen: Liver: The liver has normal size and density. Gallbladder: Prior cholecystectomy. Spleen, Pancreas, and Adrenal Glands: The spleen, pancreas, and adrenal glands are unremarkable. Kidneys: The kidneys have normal size without evidence of hydronephrosis. No obstructing ureteral beckie culi. Vasculature: Atherosclerotic calcification of the thoracic aorta. Heart is not enlarged. Stomach: Small hiatal hernia. Other: No free intraperitoneal air. No free fluid or lymphadenopathy. Pelvis: Bladder: Urinary bladder is unremarkable. Bowel: No dilated loops of large or small bowel. Appendix: Not identified. Pelvis: Focal area of remote calcified fat necrosis in the right pelvis. Uterus is not enlarged. IMPRESSION: 1. No acute inflammatory or obstructive process identified. This exam was performed according to our departmental dose-optimization program, which includes autom ated exposure control, adjustment of the mA and/or kV according to patient size and/or use of iterati ve reconstruction technique. Electronically signed by: Rene Gresham 06/03/2020 5:42 AM CDT Due to temporary technical issues with the PACS/Fluency reporting system, reports are being signed by the in house radiologist without review as a courtesy to ensure prompt reporting. The interpreting r adiologist is fully responsible for the content of the report.
== END 2020-06-03 07:29 | disposition home or self-care (01) ==
LOC: ER 04:38
DX: R10.814 Left lower quadrant abdominal tenderness (principal); F17.210 Nicotine dependence, cigarettes, uncomplicated; Z88.2 Allergy status to sulfonamides; Z88.5 Allergy status to narcotic agent
CPT/HCPCS: 36415; 74176; 76377; 80048; 80076; 81003; 83690; 85025; 96361; 96374; 96375; 99284; J2405; J3010; J3480; J7030

== ENCOUNTER 2020-09-25 01:52 | Emergency (ER) | payer SELFPAY ==
--- OUTSIDE RECORDS SUMMARY | 2020-09-25 01:54 | XMS REPORT | Summary of Care ---
:1985 Author Organization [facility] Address [address] [place] [id number] Care Team Providers Name Role Phone MD Andrea Primary Care Provider Reason for Visit Reason Comments Refill Request Encounter Details Date Type Department Care Team Description 07/16/2020 Refill [facility] Johny Starr MD Refill Request - [address] [place] [address] [place] [address] [phone] Allergies Active Allergy Reactions Severity Noted Date Comments Morphine Rash 12/04/2016 Sulfa (Sulfonamide Antibiotics) Anaphylaxis 5 documented as of this encounter (statuses as of 07/17/2020) Medications Medication Sig Dispensed Refills Start Date End Date Status fluocinonide 0.05 % cream Apply to 30 g 1 10/06/2018 Active area(s) 2 (two) times daily. aspirin 81 mg chewable Take 1 tablet [...] EVERY FOUR Bronchitis HOURS NEEDED FOR COUGH. promethazine-codeine Take 5 mL by 8 oz 0 09/01/2019 Active 6.25-10 mg/5 mL mouth 4 (four) syrupIndications: times daily as Bronchitis needed for Cough. mupirocin 2 % Apply to 30 g 0 03/05/2020 Activ e ointmentIndications: area(s) 3 Puncture wound of great (three) times toe of right foot, daily. initial encounter tiZANidine 4 mg Take 1 tablet 60 tablet 3 04/16/2020 Active tabletIndications: Other by mouth every chronic pain 8 (eight) hours as needed for Pain (scale 4-6). ondansetron 4 mg Take 1 tablet 30 tablet 1 06/05/2020 Active tabletIndications: by mouth every Urinary tract infection 8 (eight) without hematuria, site hours as unspecified needed for Nausea and Vomiting (N/V). ciprofloxacin HCl 500 mg Take 1 tablet 20 tablet 0 06/05/2020 Active tabletIndications: by mouth every Urinary tract infection 12 (twelve) without hematuria, site hours. unspecified HYDROcodone-acetaminophen Take 1 tablet 120 tablet 0 0 Active (NORCO) 10-325 mg by mouth every tabletIndications: 6 (six) hours chronic pain as needed for Pain (scale 1-3), Pain (scale 4-6) or Pain (scale 7-10). 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 documented as of this encounter (statuses as of 07/17/2020) Active Problems Patient Care Coordination Note I talked with Dr Worley. He will deliver Ms Gill. He said he could also do weekly BPPs at his office so she does not need NSTs with us at [facility] Problem Noted Date Numbness 01/07/2019 Positive LUCIEN [...] as of this encounter (statuses as of 07/17/2020) Immunizations Name Administration Dates Next Due TDAP 03/08/2018 documented as of this encounter Social History Tobacco Use Types Packs/Day Years Used Date Former Smoker Cigarettes 0.5 3 Quit: 01/17/20 19 Smokeless Tobacco: Never Used Comments: 1 ppdx 10 years, Smokes mariju lucien daily Alcohol Use Drinks/Week oz/Week Comments No Sex Assigned at Date Recorded Not on file documented as of this encounter Last Filed Vital Signs Not on filedocumented in this encounter Plan of Treatment Health Maintenance Due Date Last Done Comments VARICELLA VACCINES (1 of 2 - 2-dose childhood series) 1987 PNEUMOCOCCAL 0-64 YEARS COMBINED SERIES (1 of 3 - 1992 PCV13) Depression Screening 1998 PAP SMEAR 2007 INFLUENZA VACCINE (#1) 2020 DTaP,Tdap,and Td Vaccines [...] Agent Relationship Co mmunication Fabiano Mcelroy Other Health Care Agent
--- OUTSIDE RECORDS SUMMARY | 2020-09-25 01:54 | XMS REPORT | Continuity of Care Document ---
:1985 Author Organization [facility] t Address [address] [place] [address] Care Team Providers Name Role Phone Andrea PIÑA Attending Clinician Doctor Unassigned, Name Attending Clinician Unavailable Problems This patient has no known problems. Allergies, Adverse Reactions, Alerts This patient has no known allergies or adverse reactions. Medications This patient has no known medications. Procedures This patient has no known procedures. Encounters Start End Encounter Admission Attending Care Care Encounter Source Date/Time Date/Time Type Type Clinicians Facility Department ID 2020-09-08 2020-09-08 Refill ROBERT Mendez [id number] 00:00:00 00:00:00 [facility] [id number] [place] [id number] Professio [phone] [address] [address] 2020-09-06 2020-09-06 Refill ROBERT Mendez [id number] 00:00:00 00:00:00 [facility] [id number] [place] [id number] Professio [phone] nal [address] 2020-08-28 2020-08-28 Telemedici ROBERT Mendez [id number] 06:54:45 07:09:45 ne Visit [facility] [id number] [place] [id number] Professio [phone] nal [address] 2020-08-27 2020-08-27 Telephone ROBERT Mendez [id number] 00:00:00 00:00:00 [facility] [id number] [place] [id number] Professio [phone] [place] [address] [address] 2020-08-16 2020-08-16 Refpaolo Mendez [facility] [id number] 00:00:00 00:00:00 [facility] [id number] [place] [id number] Professio [phone] [place] [address] [address] 2020-07-30 2020-07-30 Deborah Mendez [facility] [id number] 00:00:00 00:00:00 [facility] [id number] [place] [id number] Professio [phone] [place] [address] [address] 2020-07-16 2020-07-[address] [facility] [id number] 00:00:00 00:00:00 [facility] [id number] [place] [id number] Professio [phone] [place] [address] [address] 2020-07-12 2020-07-[address] [facility] [id number] 00:00:00 00:00:00 [facility] [id number] [place] [id number] Profess[facility] [phone] [place] [address] [address] 2020-06-05 2020-06-[address] [facility] [id number] 08:26:20 08:41:20 ne Visit Johny [place] [id number] [place] [id number] Professio [phone] [place] [address] Building 2020-05-31 2020-05-31 Refpaolo Mendez [facility] [id number] 00:00:00 00:00:00 [facility] [id number] [place] [id number] Professio [phone] [place] [address] [address] 2020-05-02 2020-05-02 Office AndreaROBERT [id number] 09:22:36 09:37:36 Visit oJhny Lazcano [id number] [place] [id number] [place] [phone] [place] 044 Building 2018-08-05 2018-08-05 Orders Doctor SYLVIE [id number] 00:00:00 00:00:00 Only Unassigned, ISABELLA [id number] [facility] [facility] [id number] [phone] [phone] Results This patient has no known results.
--- OUTSIDE RECORDS SUMMARY | 2020-09-25 01:54 | XMS REPORT | Summary of Care ---
:1985 Author Organization [facility] Address [address] [place] [address] Care Team Providers Name Role Phone MD Andrea Primary Care Provider Reason for Visit Reason Comments Refill Request Encounter Details Date Type Department Care Team Description 07/12/2020 Refill [facility] Family Medicine Johny Starr MD Refill Request - [address] [place] [address] [place] [address] [phone] Allergies Active Allergy Reactions Severity Noted Date Comments Morphine Rash 12/04/2016 Sulfa (Sulfonamide Antibiotics) Anaphylaxis 5 documented as of this encounter (statuses as of 07/12/2020) Medications Medication Sig Dispensed Refills Start End Date Status Date fluocinonide 0.05 % Apply to 30 g 1 Active cream area(s) 2 8 (two) times daily. aspirin 81 mg chewable Take 1 90 [...] EVERY Bronchitis FOUR HOURS NEEDED FOR COUGH. promethazine-codeine Take 5 [...] (scale 4-6). ondansetron 4 mg Take 1 30 tablet 1 Act nayan tabletIndications: tablet by 0 Urinary tract mouth every infection without 8 (eight) hematuria, site hours as unspecified needed for Nausea and Vomiting (N/V). ciprofloxacin HCl 500 Take 1 20 tablet 0 Active mg tabletIndications: tablet by 0 Urinary tract mouth every infection without 12 (twelve) hematuria, site hours. unspecified HYDROcodone-acetaminop Take 1 120 tablet 0 Active hen (NORCO) 10-325 mg tablet by 0 tabletIndications: mouth every chronic pain 6 (six) hours as needed for Pain (scale 1-3), Pain (scale 4-6) or Pain (scale 7-10). Indications: chronic pain dextroamphetamine-amph Take 3 180 tablet 0 Active [...] hyperactivity HYDROcodone-acetaminop Take 1 120 tablet 0 Discontinued hen (NORCO) 10-325 mg tablet by 0 20 (Reorder) tabletIndications: mouth every chronic pain 6 (six) hours as needed for Pain (scale 1-3), Pain (scale 4-6) or Pain (scale 7-10). Indications: chronic pain diazePAM 5 mg TAKE ONE (1) 30 tablet 5 07/12/20 Dis continued tabletIndications: TABLET(S) BY 0 20 (Reorder) Anxiety MOUTH THREE TIMES A DAY NEEDED FOR MUSCLE SPASMS OR ANXIETY. documented as of this encounter (statuses as of 07/12/2020) Active Problems Patient Care Coordination Note I talked with Dr Worley. He will deliver Ms Gill. He said he could also do weekly BPPs at his office so she does not need NSTs with us at [facility] Problem Noted Date Numbness 01/07/2019 Positive [...] as of this encounter (statuses as of 07/12/2020) Immunizations Name Administration Dates Next Due TDAP 03/08/2018 documented as of this encounter Social History Tobacco Use Types Packs/Day Years Used Date Former Smoker Cigarettes 0.5 3 Quit: 03/10/20 19 Smokeless Tobacco: Never Used Comments: 1 ppdx 10 years, Smokes chastity mcgraw daily Alcohol Use Drinks/Week oz/Week Comments No Sex Assigned at Date Recorded Not on file documented as of this encounter Last Filed Vital Signs Not on filedocumented in this encounter Miscellaneous Notes Telephone Encounter - Calli Rankin LVN - 07/12/2020 2:49 PM CDT 6 weeks ago (05/31/2020) HYDROcodone-acetaminophen (NORCO) 10-325 mg tablet diazePAM 5 mg tablet 30 tablet 5 05/31/2020 -- Sig: TAKE ONE (1) TABLET(S) BY MOUTH THREE TIMES A DAY NEEDED FOR MUSCLE SPASMS OR ANXIETY. NEEDS 90 TABLETS FOR A 30 DAY SUPPLY PLEASE dextroamphetamine-amphetamine 10 mg tablet 180 tablet 0 05/02/2020 [facility] [place] - [place], [place] - [address] AT [place] [address] APPOINTMENT ON 06/05/2020 elephone Encounter - Margarita Carreon - 07/12/2020 12:37 PM CDTPt requesting 90 tablets for a 30 day supply in the diazepam. documented in this encounter Plan of Treatment [...] encounter Visit Diagnoses Diagnosis Other chronic pain Attention deficit disorder (ADD) without hyperactivity Anxiety Anxiety state, unspecified documented in this encounter Advance Directives Name Relationship Healthcare Agent Relationship Co mmunication Fabiano Mcelroy Other Health Care Agent
--- OUTSIDE RECORDS SUMMARY | 2020-09-25 01:55 | XMS REPORT | Summary of Care ---
:1985 Author Organization [facility] Address [address] [place] [address] Care Team Providers Name Role Phone MD Andrea Primary Care Provider Reason for Visit Reason Comments Assessment Notification Encounter Details Date Type Department Care Team Description 08/27/2020 Telephone [facility] Family Delfino Mendez MD Assessment; [facility] [address] [place] [phone] Allergies Active Allergy Reactions Severity Noted Date Comments Morphine Rash 12/04/2016 Sulfa (Sulfonamide Antibiotics) Anaphylaxis 5 documented as of this encounter (statuses as of 08/27/2020) Medications Medication Sig Dispensed Refills Start Date [...] mg TAKE ONE (1) 90 tablet 0 07/30/2020 Ac tive tabletIndications: TABLET(S) BY Anxiety MOUTH THREE TIMES A DAY NEEDED FOR MUSCLE SPASMS OR ANXIETY. documented as of this encounter (statuses as of 08/27/2020) Active Problems Patient Care Coordination Note I [...] as of this encounter (statuses as of 08/27/2020) Immunizations Name Administration Dates Next Due TDAP 03/08/2018 documented as of this encounter Social History Tobacco Use Types Packs/Day Years Used Date Former Smoker Cigarettes 0.5 3 Quit: 01/17/20 Smokeless Tobacco: Never Used Comments: 1 ppdx 10 years, Smokes mariju lucien daily Alcohol Use Drinks/Week oz/Week Comments No Sex Assigned at Date Recorded Not on file documented as of this encounter Last Filed Vital Signs Not on filedocumented in this encounter Miscellaneous Notes Telephone Encounter - Johny Mendez MD - 08/27/2020 3:13 PM CDTWill discuss on her call tomorrow. elephone Encounter - Shabana Wylie - 08/27/2020 2:53 PM CDTPatient is requesting for a message to be sent to the provider, patient is requesting a tele healthapt to discuss, fatigue, cough, yellow mucus,pt is requesting a refill on cough medication, telehealth apt has been scheduled 08/28/20 @ 9:00 am. documented in this encounter Plan of Treatment Date Type Specialty Care Team Description 08/28/2020 Telemedicine Visit Family Medicine Delfino Mendez MD [address] [place] [phone] Health Maintenance Due Date Last Done [...]
--- OUTSIDE RECORDS SUMMARY | 2020-09-25 01:55 | XMS REPORT | Summary of Care ---
:1985 Author Organization [facility] Address [address] [place] [address] Care Team Providers Name Role Phone MD Andrea Primary Care Provider Reason for Visit Reason Comments Refill Request Encounter Details Date Type Department Care Team Description 08/16/2020 Refill [facility] Family Medicine Johny Starr MD Refill Request - [address] [place] [address] [place] [address] [phone] Allergies Active Allergy Reactions Severity Noted Date Comments Morphine Rash 12/04/2016 Sulfa (Sulfonamide Antibiotics) Anaphylaxis 5 documented as of this encounter (statuses as of 08/16/2020) Medications Medication Sig Dispensed Refills Start Date [...] as of this encounter (statuses as of 08/16/2020) Active Problems Patient Care Coordination Note I talked with Dr Worley. He will deliver Ms Gill. He said he could also do weekly BPPs at his office so she does not need NSTs with us at [facility] Problem Noted Date Numbness 01/07/2019 Positive [...] as of this encounter (statuses as of 08/16/2020) Immunizations Name Administration Dates Next Due TDAP [...] filedocumented in this encounter Visit Diagnoses Diagnosis Bronchitis Bronchitis, not specified as acute or ch ronic documented in this encounter Advance Directives Name Relationship Healthcare Agent Relationship Co mmunication Fabiano Mcelroy Other Health Care Agent
--- OUTSIDE RECORDS SUMMARY | 2020-09-25 01:55 | XMS REPORT | Summary of Care ---
:1985 Author Organization [facility] Address [address] [place] [address] Care Team Providers Name Role Phone MD Andrea Primary Care Provider Reason for Visit Reason Comments Refill Request Encounter Details Date Type Department Care Team Description 07/30/2020 Refill [facility] Family Medicine Johny Starr MD Refill Request - [address] [place] [address] [place] [address] [phone] Allergies Active Allergy Reactions Severity Noted Date Comments Morphine Rash 12/04/2016 Sulfa (Sulfonamide Antibiotics) Anaphylaxis 5 documented as of this encounter (statuses as of 07/30/2020) Medications Medication Sig Dispensed Refills Start End [...] tive mcg/actuation nasal in each 9 sprayIndications: Acute nostril URI daily. hydroxychloroquine 200 Take 1 tablet 30 tablet 2 Active mg tabletIndications: by mouth 9 Lupus erythematosus, daily. unspecified form CHERATUSSIN AC 10-100 TAKE FIVE (5) 8 oz 0 Active mg/5 mL ML(S) BY 9 solutionIndications: MOUTH EVERY Bronchitis FOUR HOURS NEEDED FOR COUGH. promethazine-codeine Take 5 mL by 8 oz 0 Active 6.25-10 mg/5 mL mouth 4 9 syrupIndications: (four) times Bronchitis daily as needed for Cough. mupirocin 2 % Apply to 30 g 0 Active ointmentIndications: area(s) 3 0 Puncture wound of great (three) times toe of right foot, daily. initial encounter tiZANidine 4 mg Take 1 tablet 60 tablet 3 Active tabletIndications: by mouth 0 Other chronic pain every 8 (eight) hours as needed for Pain (scale 4-6). ondansetron 4 mg Take 1 tablet 30 tablet 1 Active tabletIndications: by mouth 0 Urinary tract infection every 8 without hematuria, site (eight) hours unspecified as needed for Nausea and Vomiting (N/V). ciprofloxacin HCl 500 Take 1 tablet 20 tablet 0 Active mg tabletIndications: by mouth 0 Urinary tract infection every 12 without hematuria, site (twelve) unspecified hours. HYDROcodone-acetaminoph Take 1 tablet 120 tablet 0 Active en (NORCO) 10-325 mg by mouth 0 tabletIndications: every 6 (six) chronic pain hours as needed for Pain (scale 1-3), Pain (scale 4-6) or Pain (scale 7-10). Indications: chronic pain dextroamphetamine-amphe Take 3 180 tablet 0 Active tamine 10 mg tablets by 0 tabletIndications: mouth 2 (two) Attention deficit times daily. disorder (ADD) without hyperactivity DIAZEPAM 5 mg TAKE ONE (1) 90 tablet 0 Act nayan tabletIndications: TABLET(S) BY 0 Anxiety MOUTH THREE TIMES A DAY NEEDED FOR MUSCLE SPASMS OR ANXIETY. diazePAM 5 mg TAKE ONE (1) 30 tablet 5 07/30/20 Dis continued tabletIndications: TABLET(S) BY 0 20 Anxiety MOUTH THREE TIMES A DAY NEEDED FOR MUSCLE SPASMS OR ANXIETY. documented as of this encounter (statuses as of 07/30/2020) Active Problems Patient Care Coordination Note I [...] as of this encounter (statuses as of 07/30/2020) Immunizations Name Administration Dates Next Due TDAP [...] Telephone Encounter - Calli Rankin LVN - 07/30/2020 12:35 PM CDT 2 weeks ago (07/12/2020) diazePAM 5 mg tablet REQUESTS A 30 DAY SUPPLY [facility] - [place], [place] - [address] AT [place] [address] APPOINTMENT 06/05/2020 documented in this encounter Plan of Treatment [...]
--- OUTSIDE RECORDS SUMMARY | 2020-09-25 01:55 | XMS REPORT | Summary of Care ---
:1985 Author Organization [facility] Address [address] [place] [address] Care Team Providers Name Role Phone MD Andrea Primary Care Provider Encounter Details Date Type Department Care Team Description 08/05/2018 Orders Only [facility] Doctor Unassigned, [address] [facility] Name [place] [id number] [address] [place] [address] Allergies Active Allergy Reactions Severity Noted Date Comments Morphine Rash 12/04/2016 Sulfa (Sulfonamide Antibiotics) Anaphylaxis 5 documented as of this encounter (statuses as of 07/28/2020) Medications No known medicationsdocumented as of this encounter (statuses as of 07/28/2020) Active Problems Patient Care Coordination Note I talked with Dr Worley. He will deliver Ms Gill. He said he could also do weekly BPPs at his office so she does not need NSTs with us at [facility] Problem Noted Date Numbness 01/07/2019 Positive [...] as of this encounter (statuses as of 07/28/2020) Immunizations Name Administration Dates Next Due TDAP 03/08/2018 documented as of this encounter Social History Tobacco Use Types Packs/Day Years Used Date Current Every Day Smoker Cigarettes 0.25 3 Smokeless Tobacco: Never Used Alcohol Use Drinks/Week oz/Week Comments No Sex Assigned at Date Recorded Not on file COVID-19 Exposure Response Date Recorded In the [...] Procedures Procedure Name Priority Date/Time Associated Diagnosis Comme nts PAIN MANAGEMENT Routine 08/05/2018 12:01 AM AGREEMENT & INFORMED CDT CONSENT documented in this encounter Results Not on filedocumented in this encounter Insurance Payer Benefit Plan / Subscriber ID Effective Dates Phone Addre ss Type Group [facility] [id number] 2018-03/01/ HMO/ PPO/PO [employer] PPO 2019 S documented as of this encounter Advance Directives Name Relationship Healthcare Agent Relationship Co mmunication Fabiano Mcelroy Other Health Care Agent
--- OUTSIDE RECORDS SUMMARY | 2020-09-25 01:56 | XMS REPORT | Summary of Care ---
:1985 Author Organization [facility] Address [address] [place] [address] Care Team Providers Name Role Phone MD Andrea Primary Care Provider Reason for Visit Reason Comments Refill Request Encounter Details Date Type Department Care Team Description 09/06/2020 Refill [facility] Family Medicine Johny Starr MD Refill Request - [address] [place] [address] [place] [address] [phone] Allergies Active Allergy Reactions Severity Noted Date Comments Morphine Rash 12/04/2016 Sulfa (Sulfonamide Antibiotics) Anaphylaxis 5 documented as of this encounter (statuses as of 09/06/2020) Medications Medication Sig Dispensed Refills Start End [...] 9 Lupus erythematosus, mouth daily. unspecified form mupirocin 2 % Apply to 30 g 0 Active ointmentIndications: area(s) 3 0 Puncture wound of (three) great toe of right times daily. foot, initial encounter tiZANidine 4 mg Take 1 60 tablet 3 Acti ve tabletIndications: tablet by 0 Other chronic pain mouth every 8 (eight) hours as needed for Pain (scale 4-6). ciprofloxacin HCl 500 Take 1 20 tablet 0 Active mg tabletIndications: tablet by 0 Urinary tract mouth every infection without 12 (twelve) hematuria, site hours. unspecified DIAZEPAM 5 mg TAKE ONE (1) 90 tablet 0 Act nayan tabletIndications: TABLET(S) BY 0 Anxiety MOUTH THREE TIMES A DAY NEEDED FOR MUSCLE SPASMS OR ANXIETY. ondansetron 4 mg Take 1 30 tablet 1 Act nayan tabletIndications: tablet by 0 Urinary tract mouth every infection without 8 (eight) hematuria, site hours as unspecified needed for Nausea and Vomiting (N/V). codeine-guaifenesin TAKE FIVE 8 oz 0 Active (CHERATUSSIN AC) (5) ML(S) BY 0 10-100 mg/5 mL MOUTH EVERY solutionIndications: FOUR HOURS cough NEEDED FOR COUGH. Indications: cough clarithromycin 500 mg Take 1 14 tablet 0 Active tabletIndications: tablet by 0 Bronchitis mouth every 12 (twelve) hours. HYDROcodone-acetaminop Take 1 120 tablet 0 Active [...] pain dextroamphetamine-amph Take 3 180 tablet 0 Discontinued etamine 10 mg tablets by 0 20 (Ann-Marieor jeb) tabletIndications: mouth 2 Attention deficit (two) times disorder (ADD) without daily. hyperactivity documented as of this encounter (statuses as of 09/06/2020) Active Problems Patient Care Coordination Note I talked with Dr Worley. He will deliver Ms Gill. He said he could also do weekly BPPs at his office so she does not need NSTs with us at [facility] Problem Noted Date Numbness 01/07/2019 [...] as of this encounter (statuses as of 09/06/2020) Immunizations Name Administration Dates Next Due TDAP [...] this encounter Miscellaneous Notes Telephone Encounter - Siri Talamantes MA - 09/06/2020 10:55 AM CDT Please review and sign if appropriate. Last Refilled: HYDROcodone-acetaminophen (NORCO) 10-325 mg tablet 120 tablet 0 07/12/2020 dextroamphetamine-amphetamine 10 mg tablet 180 tablet 0 07/12/2020 Pharmacy: [facility] AKIKO: 08/28/2020 NOV: none documented in this encounter Plan of Treatment [...] Problems Progress Quit using Tobacco Use No [place], tobacco Siri Leiva MA (cigarettes, smokeless, etc) documented as of this encounter Results Not on filedocumented in this encounter Visit Diagnoses Diagnosis Other chronic pain Attention deficit disorder (ADD) without hyperactivity documented in this encounter Advance Directives Name Relationship Healthcare Agent Relationship Co mmunication Fabiano Mcelroy Other Health Care Agent
--- OUTSIDE RECORDS SUMMARY | 2020-09-25 01:56 | XMS REPORT | Summary of Care ---
:1985 Author Organization [facility] Address [address] [place] [address] Care Team Providers Name Role Phone MD Andrea Primary Care Provider Reason for Visit Reason Comments Cough Encounter Details Date Type Department Care Team Description 08/28/2020 Telemedicine Visit [facility] Andrea Bronchiangelica s (Primary Dx); Family Medicine - MD Johny Gastroesophageal reflux disease, unspeci fied whether esophagitis present; [address] Urinary tract infection with out hematuria, site unspecified [address] [place] [phone] Allergies Active Allergy Reactions Severity Noted Date Comments Morphine Rash 12/04/2016 Sulfa (Sulfonamide Antibiotics) Anaphylaxis 5 documented as of this encounter (statuses as of 08/28/2020) Medications Medication Sig Dispensed Refills Start End [...] 0 Bronchitis mouth every 12 (twelve) hours. CHERATUSSIN AC 10-100 TAKE FIVE 8 oz 0 08/28/20 Discontinued mg/5 mL (5) ML(S) BY 9 20 (Reorde r) solutionIndications: MOUTH EVERY Bronchitis FOUR HOURS NEEDED FOR COUGH. promethazine-codeine Take 5 mL by 8 oz 0 Discontinued 6.25-10 mg/5 mL mouth 4 9 20 (Daniel e effects) syrupIndications: (four) times Bronchitis daily as needed for Cough. ondansetron 4 mg Take 1 30 tablet 1 08/28/20 Dis continued tabletIndications: tablet by 0 20 ( Reorder) Urinary tract mouth every infection without 8 (eight) hematuria, site hours as unspecified needed for Nausea and Vomiting (N/V). documented as of this encounter (statuses as of 08/28/2020) Active Problems Patient Care Coordination Note I [...] as of this encounter (statuses as of 08/28/2020) Immunizations Name Administration Dates Next Due TDAP [...] Signs Not on filedocumented in this encounter Progress Notes Johny Mendez MD - 08/28/2020 9:00 AM CDT TELEHEALTH NOTE Verbal consent obtained from Patient: Chela Mcdermott due to the COVID-19 pandemic for telehealth services provided below. Communication with patient was conducted via Telephone due to patient unable to obtain video call option. Location of Patient: Home Location of Provider: Office Date of Service: 08/28/2020 Chief Complaint: cough HPI: Chela Mcdermott is a 35 year old female with persistent productive cough, stomach pain/gas. Hx fundoplication years ago. Past Medical History: Diagnosis Date ADHD (attention deficit hyperactivity disorder) Arthritis Endometriosis Lupus (systemic lupus erythematosus) Renal stones Right shoulder pain 11/27/2016 Suprascapular neuropathy, right SVT (supraventricular tachycardia) childhood only TIA (transient ischemic attack) august 2016. MEDICATIONS: Current Outpatient Medications Medication Sig Dispense Refill DIAZEPAM 5 mg tablet TAKE ONE (1) TABLET(S) BY MOUTH THREE TIMES A DAY NEEDED FOR MUSCLE SPASMS OR ANXIETY. 90 tablet 0 dextroamphetamine-amphetamine 10 mg tablet Take 3 tablets by mouth 2 (two) times daily. 180 tablet 0 HYDROcodone-acetaminophen (NORCO) 10-325 mg tablet Take 1 tablet by mouth every 6 (six) hours asneeded for Pain (scale 1-3), Pain (scale 4-6) or Pain (scale 7-10). Indications: chronic pain 120 tablet 0 ciprofloxacin HCl 500 mg tablet Take 1 tablet by mouth every 12 (twelve) hours. 20 tablet 0 ondansetron 4 mg tablet Take 1 tablet by mouth every 8 (eight) hours as needed for Nausea and Vomiting (N/V). 30 tablet 1 tiZANidine 4 mg tablet Take 1 tablet by mouth every 8 (eight) hours as needed for Pain (scale 4-6). 60 tablet 3 mupirocin 2 % ointment Apply to area(s) 3 (three) times daily. 30 g 0 promethazine-codeine 6.25-10 mg/5 mL syrup Take 5 mL by mouth 4 (four) times daily as needed forCough. 8 oz 0 CHERATUSSIN AC 10-100 mg/5 mL solution [...] tablet by mouth daily. 90 tablet 2 fluocinonide 0.05 % cream Apply to area(s) 2 (two) times daily. 30 g 1 No current facility-administered medications for this visit. ROS Congested, epigastric discomfort. TELEHEALTH EXAM Alert, mild distress ASSESSMENT/ PLAN Chela Mcdermott is a 35 year old female with PMH as above presenting with: bronchitis, biaxin, cheratussin. Reflux issues, GI consult After visit summary (AVS ) documentation will be available through [employer] for this encounter. A total of 15 minutes was spent on the Telephone due to patient unable to obtain video call option. Johny Mendez MD documented in this encounter Plan of Treatment [...] in this encounter Visit Diagnoses Diagnosis Bronchitis - Primary Bronchitis, not specified as acute or ch ronic Gastroesophageal reflux disease, unspeci fied whether esophagitis present Urinary tract infection without hematuri a, site unspecified documented in this encounter Advance Directives Name Relationship Healthcare Agent Relationship Co mmunication Fabiano Young Health Care Agent
--- OUTSIDE RECORDS SUMMARY | 2020-09-25 01:57 | XMS REPORT | Summary of Care ---
:1985 Author Organization [facility] Address [address] [place] [id number] Care Team Providers Name Role Phone MD Andrea Primary Care Provider Reason for Visit Reason Comments Refill Request Encounter Details Date Type Department Care Team Description 09/08/[address] [facility] Johny Starr MD Refill Request - [address] [place] [address] [place] [address] [phone] Allergies Active Allergy Reactions Severity Noted Date Comments Morphine Rash 12/04/2016 Sulfa (Sulfonamide Antibiotics) Anaphylaxis 5 documented as of this encounter (statuses as of 09/10/2020) Medications Medication Sig Dispensed Refills Start End [...] mouth 9 Lupus erythematosus, daily. unspecified form mupirocin 2 % Apply to 30 g 0 Active ointmentIndications: area(s) 3 0 Puncture wound of great (three) times toe of right foot, daily. initial encounter tiZANidine 4 mg Take 1 tablet 60 tablet 3 Active tabletIndications: by mouth 0 Other chronic pain every 8 (eight) hours as needed for Pain (scale 4-6). ciprofloxacin HCl 500 Take 1 tablet 20 tablet 0 Active mg tabletIndications: by mouth 0 Urinary tract infection every 12 without hematuria, site (twelve) unspecified hours. ondansetron 4 mg Take 1 tablet 30 tablet 1 Active tabletIndications: by mouth 0 Urinary tract infection every 8 without hematuria, site (eight) hours unspecified as needed for Nausea and Vomiting (N/V). codeine-guaifenesin TAKE FIVE (5) 8 oz 0 Active (CHERATUSSIN AC) 10-100 ML(S) BY 0 mg/5 mL MOUTH EVERY solutionIndications: FOUR HOURS cough NEEDED FOR COUGH. Indications: cough clarithromycin 500 mg Take 1 tablet 14 tablet 0 Active tabletIndications: by mouth 0 Bronchitis every 12 (twelve) hours. HYDROcodone-acetaminoph Take 1 tablet 120 tablet [...] 5 mg TAKE ONE (1) 90 tablet 1 Act nayan tabletIndications: TABLET(S) BY 0 Anxiety MOUTH THREE TIMES A DAY NEEDED FOR MUSCLE SPASMS OR ANXIETY. DIAZEPAM 5 mg TAKE ONE (1) 90 tablet 0 09/10/20 Dis continued tabletIndications: TABLET(S) BY 0 20 Anxiety MOUTH THREE TIMES A DAY NEEDED FOR MUSCLE SPASMS OR ANXIETY. documented as of this encounter (statuses as of 09/10/2020) Active Problems Patient Care Coordination Note I talked with Dr Worley. He will deliver Ms Gill. He said he could also do weekly BPPs at his office so she does not need NSTs with us at [facility] Problem Noted Date Numbness 01/07/2019 Positive [...] as of this encounter (statuses as of 09/10/2020) Immunizations Name Administration Dates Next Due TDAP [...] this encounter Miscellaneous Notes Telephone Encounter - Ana María Chamberlain LVN - 09/10/2020 2:05 PM CST DIAZEPAM 5 mg tablet 90 tablet 0 07/30/2020 No Sig: TAKE ONE (1) TABLET(S) BY MOUTH THREE TIMES A DAY NEEDED FOR MUSCLE SPASMS OR ANXIETY WENDI Chan Last Telehealth Visit: 08/28/2020 Last Office Visit: 05/02/2020 Next Office Visit: NONE documented in this encounter Plan of Treatment [...]
[2020-09-25] MEDS ORDERED: HYDROMORPHONE HCL 1 MG/ML INJ ONE (02:36)
[2020-09-25] MEDS ORDERED: PANTOPRAZOLE 40 MG INJ ONE (02:36)
[2020-09-25] MEDS ORDERED: ONDANSETRON 4 MG/2 ML VIAL ONE ×2 (02:36→03:18)
[2020-09-25] MEDS ORDERED: NA CHLORIDE 0.9% 1,000 ML ONE (02:37)
[2020-09-25 03:01] LABS: Absolute Lymphocytes (CBC) 1.9 K/uL (0.7-4.9); Basophils % 0.5 % (0-1.3); Hematocrit 38.7 % (36.0-45.0); Lymphocytes % 11.4 % (15.3-44.8); MPV 8.2 fL (7.6-11.3); RBC Red Blood Cell Count 4.42 M/uL (3.86-4.86)
[2020-09-25 03:11] LABS: ALT/SGPT 19 U/L (12-78); AST/SGOT 15 U/L (15-37); Albumin 3.3 g/dL (3.4-5.0); Alkaline Phosphatase 84 U/L (45-117); BUN Blood Urea Nitrogen 13 mg/dL (7-18); Bicarbonate 25 mmol/L (21-32); Bilirubin Direct < 0.1 mg/dL (0-0.2); Bilirubin Total 0.2 mg/dL (0.2-1.0); Glucose Level 89 mg/dL (74-106); Lipase 282 U/L (73-393); NT PRO-BNP 37 pg/mL (<125); Potassium 3.8 mmol/L (3.5-5.1); Protein, Total 6.6 g/dL (6.4-8.2); Sodium Level 140 mmol/L (136-145); Troponin (Emerg Dept Use Only) < 0.02 ng/mL (0.0-0.045)
[2020-09-25] MEDS ORDERED: PROMETHAZINE INJ 25 MG/ML AMP ONE (03:46)
[2020-09-25 04:43] LABS: Urine Blood NEGATIVE (NEG); Urine Glucose NEGATIVE (NEG); Urine Protein NEGATIVE (NEG); Urine Specific Gravity 1.025 (1.005-1.030); Urine pH 7.5 (5.0-7.0)
--- NOTE | 2020-09-25 05:56 | EDPHYS ---
Physician Documentation [facility] Name: Chela Mcdermott Age: 35 yrs Sex: Female : 1985 Arrival Date: 09/25/2020 Time: 01:53 Bed 4 Private MD: ELIZABETH Physician Julian Murray HPI: 09/25 02:18 This 35 yrs old Female presents to ER via Wheelchair with complaints of erum Vomiting, Abdominal Pain. 02:18 The patient presents to the emergency department with nausea, vomiting, abdominal pain, erum of the epigastric area, right upper quadrant and left upper quadrant. Onset: The symptoms/episode began/occurred 10 day(s) ago. Possible causes: unknown. The symptoms are aggravated by movement, pressure, food , The symptoms are alleviated by nothing. Associated signs and symptoms: Pertinent positives: abdominal pain, nausea, vomiting. Severity of symptoms: At their worst the symptoms were moderate in the emergency department the symptoms are unchanged. The patient has not experienced similar symptoms in the past. MAJOR GENERAL: 03:08 unknown rr5 Historical: - Allergies: 02:14 Morphine; rr5 02:14 Sulfa (Sulfonamide Antibiotics); rr5 - Home Meds: 02:14 Adderall XR 30 mg Oral cp24 1 cap once daily [Active]; aspirin 325 mg Oral tab 1 tab rr5 twice a day [Active]; hydrocodone-acetaminophen 10-325 mg Oral tab 1 tab every 4 hours [Active]; Lyrica 75mg Oral 2 times per day [Active]; Plaquenil Oral [Active]; Valium 5 mg Oral tab 1 tab 3 times per day [Active]; - PMHx: 02:14 APLS; Lupus; PE; Suprascapular neuropathy; SVT; rr5 - PSHx: 02:14 Cholecystectomy; Appendectomy; Tonsillectomy; adnoid removed; 1 ovary and tube removed; rr5 - Immunization history:: Adult Immunizations up to date. - Social history:: Smoking status: Patient reports the use of cigarette tobacco products, smokes one-half pack cigarettes per day, Patient uses street drugs, marijuana. - Family history:: not pertinent. ROS: 02:18 Constitutional: Negative for fever, chills, and weight loss, Eyes: Negative for injury, erum pain, redness, and discharge, ENT: Negative for injury, pain, and discharge, Neck: Negative for injury, pain, and swelling, Cardiovascular: Negative for chest pain, palpitations, and edema, Respiratory: Negative for shortness of breath, cough, wheezing, and pleuritic chest pain, Back: Negative for injury and pain, : Negative for injury, bleeding, discharge, and swelling, MS/Extremity: Negative for injury and deformity, Skin: Negative for injury, rash, and discoloration, Neuro: Negative for headache, weakness, numbness, tingling, and seizure, Psych: Negative for depression, anxiety, suicide ideation, homicidal ideation, and hallucinations, Allergy/Immunology: Negative for hives, rash, and allergies, Endocrine: Negative for neck swelling, polydipsia, polyuria, polyphagia, and marked weight changes, Hematologic/Lymphatic: Negative for swollen nodes, abnormal bleeding, and unusual bruising. 02:18 Abdomen/GI: Positive for abdominal pain, nausea and vomiting, abdominal cramps, of the epigastric area, right upper quadrant and left upper quadrant. Exam: 02:20 Constitutional: This is a well developed, well nourished patient who is awake, alert, erum and in no acute distress. Head/Face: Normocephalic, atraumatic. Eyes: Pupils equal round and reactive to light, extra-ocular motions intact. Lids and lashes normal. Conjunctiva and sclera are non-icteric and not injected. Cornea within normal limits. Periorbital areas with no swelling, redness, or edema. ENT: Nares patent. No nasal discharge, no septal abnormalities noted. Tympanic membranes are normal and external auditory canals are clear. Oropharynx with no redness, swelling, or masses, exudates, or evidence of obstruction, uvula midline. Mucous membranes moist. Neck: Trachea midline, no thyromegaly or masses palpated, and no cervical lymphadenopathy. Supple, full range of motion without nuchal rigidity, or vertebral point tenderness. No Meningismus. Chest/axilla: Normal chest wall appearance and motion. Nontender with no deformity. No lesions are appreciated. Cardiovascular: Regular rate and rhythm with a normal S1 and S2. No gallops, murmurs, or rubs. Normal PMI, no JVD. No pulse deficits. Respiratory: Lungs have equal breath sounds bilaterally, clear to auscultation and percussion. No rales, rhonchi or wheezes noted. No increased work of breathing, no retractions or nasal flaring. Back: No spinal tenderness. No costovertebral tenderness. Full range of motion. Female : Normal external genitalia. Skin: Warm, dry with normal turgor. Normal color with no rashes, no lesions, and no evidence of cellulitis. MS/ Extremity: Pulses equal, no cyanosis. Neurovascular intact. Full, normal range of motion. Neuro: Awake and alert, GCS 15, oriented to person, place, time, and situation. Cranial nerves II-XII grossly intact. Motor strength 5/5 in all extremities. Sensory grossly intact. Cerebellar exam normal. Normal gait. Psych: Awake, alert, with orientation to person, place and time. Behavior, mood, and affect are within normal limits. 02:20 Abdomen/GI: Inspection: abdomen appears normal, Bowel sounds: normal, Palpation: moderate abdominal tenderness, in the epigastric area, right upper quadrant and left upper quadrant, Liver: no appreciated palpable abnormalities, Hernia: not appreciated. 03:02 ECG was reviewed by the Attending Physician. [facility] Vital Signs: 02:10 BP 148 / 123; Pulse 82; Resp 19; Temp 97.6; Pulse Ox 100% ; Pain 8/10; rr5 03:13 BP 118 / 78; Pulse 80; Resp 16; Pulse Ox 99% ; rr5 04:18 BP 102 / 66; Pulse 89; Resp 16; Pulse Ox 99% ; rr5 05:39 BP 96 / 50; Pulse 74; Resp 16; Pulse Ox 99% ; rr5 06:15 BP 102 / 62; Pulse 70; Resp 19; Temp 97.8; Pulse Ox 99% ; rr5 MDM: 02:09 Patient medically screened. [facility] 02:21 Differential diagnosis: gastritis, pancreatitis, viral gastroenteritis, erum gastroenteritis. Data reviewed: vital signs, nurses notes, lab test result(s), EKG, radiologic studies, CT scan, plain films. Data interpreted: environmental monitoring specialist: rate is 82 beats/min, rhythm is regular, Pulse oximetry: on room air is 100 %. Counseling: I had a detailed discussion with the patient and/or guardian regarding: the historical points, exam findings, and any diagnostic results supporting the discharge/admit diagnosis, the presence of at least one elevated blood pressure reading (>120/80) during this emergency department visit, lab results, radiology results. Medication response: dilaudid. 09/25 02:18 Order name: Basic Metabolic Panel [facility] 09/25 02:18 Order name: CBC with Diff; Complete Time: 03:19 [facility] 09/25 02:18 Order name: LFT's; Complete Time: 03:19 [facility] 09/25 02:18 Order name: Magnesium; Complete Time: 03:19 [facility] 09/25 02:18 Order name: NT PRO-BNP; Complete Time: 03:19 [facility] 09/25 02:18 Order name: Troponin (emerg Dept Use Only); Complete Time: 03:19 [facility] 09/25 02:18 Order name: XRAY Chest (1 view) [facility] 09/25 02:18 Order name: Lipase; Complete Time: 03:19 [facility] 09/25 02:18 Order name: CT Abd/Pelvis - PO and IV Contrast [facility] 09/25 02:19 Order name: Basic Metabolic Panel; Complete Time: 03:19 EDMS 09/25 02:39 Order name: Urine Dipstick--Ancillary (enter results); Complete Time: 05:49 mt 09/25 02:39 Order name: Urine --Ancillary (enter results); Complete Time: 05:49 mt 09/25 02:18 Order name: EKG; Complete Time: 02:19 [facility] 09/25 02:18 Order name: Cardiac monitoring; Complete Time: 03:16 [facility] 09/25 02:18 Order name: EKG - Nurse/Tech; Complete Time: 03:16 [facility] 09/25 02:18 Order name: IV Saline Lock; Complete Time: 02:40 [facility] 09/25 02:18 Order name: Labs collected and sent; Complete Time: 02:40 [facility] 09/25 02:18 Order name: O2 Per Protocol; Complete Time: 02:41 [facility] 09/25 02:18 Order name: O2 Sat Monitoring; Complete Time: 02:41 [facility] 09/25 02:18 Order name: Urine Dipstick-Ancillary (obtain specimen); Complete Time: 02:40 [facility] 09/25 02:18 Order name: Urine Test (obtain specimen); Complete Time: 02:40 [facility] EC:02 Rate is 70 beats/min. Rhythm is regular. QRS [place] is Normal. GA interval is normal. QRS erum interval is normal. QT interval is normal. No Q waves. T waves are Normal. No ST changes noted. Clinical impression: NSR w/ Non-specific ST/T Changes and No evidence of ischemia. Interpreted by me. Reviewed by me. Administered Medications: 02:33 Drug: NS 0.9% 500 ml Route: IV; Rate: bolus; Site: left wrist; rr5 03:13 Follow up: Response: No adverse reaction; IV Status: Completed infusion; IV Intake: rr5 500ml 02:33 Drug: Zofran (Ondansetron) 4 mg Route: IVP; Site: left wrist; rr5 03:30 Follow up: Response: No adverse reaction rr5 02:33 Drug: ProTONIX 40 mg Route: IVP; Site: left wrist; rr5 03:30 Follow up: Response: No adverse reaction rr5 02:40 Drug: Dilaudid 1 mg {Note: rass 0.} Route: IVP; Site: left wrist; rr5 03:40 Follow up: Response: No adverse reaction; Pain is decreased; RASS: Alert and Calm (0) rr5 03:08 Drug: Zofran (Ondansetron) 4 mg Route: IVP; Site: left wrist; rr5 04:00 Follow up: Response: No adverse reaction rr5 03:13 Drug: NS 0.9% 1000 ml Route: IV; Rate: 125 ml/hr; Site: left wrist; rr5 06:15 Follow up: Response: No adverse reaction; IV Status: Order to discontinue infusion; IV rr5 Intake: 375ml 03:35 Drug: Phenergan 12.5 mg Route: IVP; Site: left wrist; rr5 04:30 Follow up: Response: No adverse reaction; Nausea is decreased rr5 06:00 Drug: Phenergan 12.5 mg Route: IVP; Site: left wrist; rr5 06:16 Follow up: Response: No adverse reaction rr5 Disposition: 09/25/20 05:55 Discharged to Home. Impression: Vomiting, Abdominal tenderness, Elevated white blood cell count. - Condition is Stable. - Discharge Instructions: Abdominal Pain, Adult, Nausea and Vomiting, Adult, Nausea and Vomiting, Adult, [id number], Abdominal Pain, Adult, [id number]. - Prescriptions for Protonix 40 mg Oral Tablet - take 1 tablet by ORAL route once daily; 30 tablet. Zofran 4 mg Oral Tablet - take 1 tablet by ORAL route every 12 hours As needed; 20 tablet. Phenergan 25 mg Rectal Suppository - insert 1 suppository by RECTAL route every 6 hours As needed; 20 suppository. - Medication Reconciliation Form, Thank You Letter, Antibiotic Education, Prescription Opioid Use form. - Follow up: Private Physician; When: 2 - 3 days; Reason: Recheck today's complaints, Continuance of care, Re-evaluation by your physician. Follow up: Austin Palacio MD; When: 2 - 3 days; Reason: Recheck today's complaints, Continuance of care, Re-evaluation by your physician. - Problem is new. - Symptoms have improved. Signatures: Dispatcher [employer] EDWY Julian Murray MD MD cha Attema, Lee, GLOST KILN PLACER-C GLOST KILN PLACER-Cla1 Nile Zhao RN RN rr5 Corrections: (The following items were deleted from the chart) 06:17 05:55 09/25/2020 05:55 Discharged to Home. Impression: Vomiting; Abdominal tenderness; rr5 Elevated white blood cell count. Condition is Stable. Forms are Medication Reconciliation Form, Thank You Letter, Antibiotic Education, Prescription Opioid Use. Follow up: Private Physician; When: 2 - 3 days; Reason: Recheck today's complaints, Continuance of care, Re-evaluation by your physician. Follow up: Austin Palacio; When: 2 - 3 days; Reason: Recheck today's complaints, Continuance of care, Re-evaluation by your physician. Problem is new. Symptoms have improved. erum
--- NOTE | 2020-09-25 05:56 | ER ---
Nurse's Notes [facility] Name: Chela Mcdermott Age: 35 yrs Sex: Female : 1985 Arrival Date: 09/25/2020 Time: 01:53 Bed 4 Private MD: Diagnosis: Vomiting;Abdominal tenderness;Elevated white blood cell count Presentation: 09/25 02:10 Chief complaint: Patient states: 2 weeks ago started to have like a dry hives, rr5 abdominal pain nausea and vomiting on and off but it gets worst now. denies fever and urinary problem. Coronavirus screen: Client denies travel out of the [place] in the last 14 days. At this time, the client does not indicate any symptoms associated with coronavirus-19. Ebola Screen: Patient negative for fever greater than or equal to 101.5 degrees Fahrenheit, and additional compatible Ebola Virus Disease symptoms Patient denies exposure to infectious person. Patient denies travel to an Ebola-affected area in the 21 days before illness onset. Initial Sepsis Screen: Does the patient meet any 2 criteria? No. Patient's initial sepsis screen is negative. Does the patient have a suspected source of infection? No. Patient's initial sepsis screen is negative. Risk Assessment: Do you want to hurt yourself or someone else? Patient reports no desire to harm self or others. Onset of symptoms was September 2020. 02:10 Method Of Arrival: Wheelchair rr5 02:10 Acuity: JESUS 3 rr5 LEAD PROGRAMMER: 03:08 unknown rr5 Historical: - Allergies: 02:14 Morphine; rr5 02:14 Sulfa (Sulfonamide Antibiotics); rr5 - Home Meds: 02:14 Adderall XR 30 mg Oral cp24 1 cap once daily [Active]; aspirin 325 mg Oral tab 1 tab rr5 twice a day [Active]; hydrocodone-acetaminophen 10-325 mg Oral tab 1 tab every 4 hours [Active]; Lyrica 75mg Oral 2 times per day [Active]; Plaquenil Oral [Active]; Valium 5 mg Oral tab 1 tab 3 times per day [Active]; - PMHx: 02:14 APLS; Lupus; PE; Suprascapular neuropathy; SVT; rr5 - PSHx: 02:14 Cholecystectomy; Appendectomy; Tonsillectomy; adnoid removed; 1 ovary and tube removed; rr5 - Immunization history:: Adult Immunizations up to date. - Social history:: Smoking status: Patient reports the use of cigarette tobacco products, smokes one-half pack cigarettes per day, Patient uses street drugs, marijuana. - Family history:: not pertinent. Screenin:30 Abuse screen: Denies threats or abuse. Denies injuries from another. Nutritional rr5 screening: No deficits noted. Tuberculosis screening: No symptoms or risk factors identified. Fall Risk IV access (20 points). Total Infante Fall Scale indicates No Risk (0-24 pts). Assessment: 02:10 General: Appears in no apparent distress. uncomfortable, ill, Behavior is calm, rr5 cooperative, appropriate for age. 02:10 Pain: Complains of pain in right upper quadrant and left upper quadrant Pain currently rr5 is 8 out of 10 on a pain scale. Quality of pain is described as aching, Pain began gradually, Is intermittent. Neuro: Level of Consciousness is awake, alert, obeys commands, Oriented to person, place, time. Cardiovascular: Capillary refill < 3 seconds Patient's skin is warm and dry. Respiratory: Airway is patent Respiratory effort is even, unlabored, Respiratory pattern is regular, symmetrical. GI: Abdomen is round non-distended, Reports upper abdominal pain, nausea, vomiting. : No signs and/or symptoms were reported regarding the genitourinary system. EENT: No signs and/or symptoms were reported regarding the EENT system. Derm: Skin is intact, is healthy with good turgor, Skin temperature is warm. Musculoskeletal: Circulation, motion, and sensation intact. Capillary refill < 3 seconds. 03:05 Reassessment: still nauseous ED provider aware with order made and carried out Patient rr5 states symptoms have improved. 03:45 Reassessment: oral contrast consumed, CTstaff aware. rr5 04:18 Reassessment: Patient appears in no apparent distress at this time. Patient is alert, rr5 oriented x 3, equal unlabored respirations, skin warm/dry/pink. Patient states symptoms have improved. 05:38 Reassessment: Patient appears in no apparent distress at this time. Patient is alert, rr5 oriented x 3, equal unlabored respirations, skin warm/dry/pink. back form CT scan awaiting for results. 06:16 Reassessment: Patient appears in no apparent distress at this time. Patient is alert, rr5 oriented x 3, equal unlabored respirations, skin warm/dry/pink. discharge instruction given and explained without complaints made. Vital Signs: 02:10 BP 148 / 123; Pulse 82; Resp 19; Temp 97.6; Pulse Ox 100% ; Pain 8/10; rr5 03:13 BP 118 / 78; Pulse 80; Resp 16; Pulse Ox 99% ; rr5 04:18 BP 102 / 66; Pulse 89; Resp 16; Pulse Ox 99% ; rr5 05:39 BP 96 / 50; Pulse 74; Resp 16; Pulse Ox 99% ; rr5 06:15 BP 102 / 62; Pulse 70; Resp 19; Temp 97.8; Pulse Ox 99% ; rr5 ED Course: 01:53 Patient arrived in ED. cf2 02:00 Nile Zhao, BARRY is Primary Nurse. rr5 02:06 Julian Murray MD is Attending Physician. erum 02:12 Triage completed. rr5 02:14 Arm band placed on. rr5 02:20 Patient has correct armband on for positive identification. Placed in gown. Bed in low rr5 position. Call light in reach. Side rails up X 1. Pulse ox on. NIBP on. 02:30 Inserted saline lock: 20 gauge in left wrist, using aseptic technique. Blood collected. rr5 02:39 XRAY Chest (1 view) In Process Unspecified. EDMS 05:31 CT Abd/Pelvis - PO and IV Contrast In Process Unspecified. EDMS 05:54 Austin Palacio MD is Referral Physician. erum 06:15 No provider procedures requiring assistance completed. IV discontinued, intact, rr5 bleeding controlled, No redness/swelling at site. Pressure dressing applied. Administered Medications: 02:33 Drug: NS 0.9% 500 ml Route: IV; Rate: bolus; Site: left wrist; rr5 03:13 Follow up: Response: No adverse reaction; IV Status: Completed infusion; IV Intake: rr5 500ml 02:33 Drug: Zofran (Ondansetron) 4 mg Route: IVP; Site: left wrist; rr5 03:30 Follow up: Response: No adverse reaction rr5 02:33 Drug: ProTONIX 40 mg Route: IVP; Site: left wrist; rr5 03:30 Follow up: Response: No adverse reaction rr5 02:40 Drug: Dilaudid 1 mg {Note: rass 0.} Route: IVP; Site: left wrist; rr5 03:40 Follow up: Response: No adverse reaction; Pain is decreased; RASS: Alert and Calm (0) rr5 03:08 Drug: Zofran (Ondansetron) 4 mg Route: IVP; Site: left wrist; rr5 04:00 Follow up: Response: No adverse reaction rr5 03:13 Drug: NS 0.9% 1000 ml Route: IV; Rate: 125 ml/hr; Site: left wrist; rr5 06:15 Follow up: Response: No adverse reaction; IV Status: Order to discontinue infusion; IV rr5 Intake: 375ml 03:35 Drug: Phenergan 12.5 mg Route: IVP; Site: left wrist; rr5 04:30 Follow up: Response: No adverse reaction; Nausea is decreased rr5 06:00 Drug: Phenergan 12.5 mg Route: IVP; Site: left wrist; rr5 06:16 Follow up: Response: No adverse reaction rr5 Intake: 03:13 IV: 500ml; Total: 500ml. rr5 06:15 IV: 375ml; Total: 875ml. rr5 Outcome: 05:55 Discharge ordered by . erum 06:15 Discharged to home ambulatory. rr5 06:15 Condition: stable 06:15 Discharge instructions given to patient, Instructed on discharge instructions, follow up and referral plans. medication usage, Demonstrated understanding of instructions, follow-up care, medications, Prescriptions given X 3. 06:17 Patient left the ED. rr5 Signatures: Dispatcher [employer] EDMN Julian Murray MD MD cha Roque, Raymond, RN RN rr5 Scott Peace cf2 Corrections: (The following items were deleted from the chart) 06:16 06:14 Phenergan 12.5 mg IVP in left wrist rr5 rr5
--- NOTE | 2020-09-25 08:15 | RAD REPORT ---
EXAM DESCRIPTION: RAD - Chest Single View - 09/25/2020 2:38 am CLINICAL HISTORY: Abdominal distention;Chest pain COMPARISON: Portable July 2019 TECHNIQUE: AP portable chest image was obtained 09/25/2020 2:38 am . FINDINGS: Lungs are clear. Heart and vasculature are normal. No measurable pleural effusion and no p neumothorax. No acute bony abnormality seen. No acute aortic findings suspected. IMPRESSION: No acute cardiopulmonary process. No significant change from comparison study.
--- NOTE | 2020-09-25 10:16 | RAD REPORT ---
EXAM DESCRIPTION: CT - Abdomen Pelvis W Contrast - 09/25/2020 6:39 am CLINICAL HISTORY: The patient is 35 years old and is Female; ABD PAIN TECHNIQUE: Axial computed tomography images of the abdomen and pelvis with intravenous contrast. S agittal and coronal reformatted images were created and reviewed. This CT exam was performed using one or more of the following dose reduction techniques: automated exposure control, adjustment of t he mA and/or kV according to patient size, and/or use of iterative reconstruction technique. Oral c ontrast was administered. COMPARISON: No relevant prior studies available. FINDINGS: Lung bases: 5 mm pulmonary nodule left lower lobe. ABDOMEN: Liver: Unremarkable. No mass. Gallbladder and bile ducts: Cholecystectomy without biliary dilatation. Pancreas: No findings to suggest acute pancreatitis. No mass visualized. No ductal dilation. Spleen: Unremarkable. No splenomegaly. Adrenals: Unremarkable. No mass. Kidneys and ureters: Unremarkable. No solid mass. No hydronephrosis. Stomach and bowel: No bowel dilatation or obstruction. No bowel wall thickening. PELVIS: Appendix: No findings to suggest acute appendicitis. Bladder: Unremarkable. No mass. Reproductive: Unremarkable as visualized. ABDOMEN and PELVIS: Intraperitoneal space: Unremarkable. No free air. No significant fluid collection. Bones/joints: Leftward L5-S1 disc osteophyte complex with moderate left neural foraminal narrowin g. No acute fracture visualized. Mild scoliosis. Partial SI joint ankylosis. No dislocation. Soft tissues: Unremarkable. Vasculature: Unremarkable. No abdominal aortic aneurysm. Lymph nodes: No pathologically enlarged lymph nodes. IMPRESSION: 1. No acute obstructive or inflammatory process identified. 2. Cholecystectomy without biliary dilatation. 3. 5 mm pulmonary nodule left lower lobe. Fleischner Society Guidelines (MacMahon, et al. Radiol ogy 2017; 284(1):228-43) suggest the following. For low-risk patients, no follow-up is necessary. For high-risk patients (smoking history or other known risk factors) an optional chest CT at 12 conor hs could be performed. Electronically signed by: Daria Navarrete MD 09/25/2020 5:42 AM HOME COMFORT ADVISOR Due to temporary technical issues with the PACS/Fluency reporting system, reports are being signed by the in house radiologists without review as a courtesy to insure prompt reporting. The interpreting radiologist is fully responsible for the content of the report.
--- NOTE | 2020-09-25 12:33 | EKG ---
Test Date: 2020-09-25 Test Time: 02:58:42 Digital Editor: RR MEASUREMENT RESULTS: Intervals: Rate: 70 MD: 194 QRSD: 94 QT: 408 QTc: 440 [place]: P: 40 MD: 194 QRS: 75 T: 40 INTERPRETIVE STATEMENTS: Normal sinus rhythm Normal ECG Compared to ECG 07/27/2019 05:25:48 Myocardial infarct finding no longer present T-wave abnormality no longer present Possible ischemia no longer present Electronically Signed On 09-25-20 12:33:02 CHIEF LEARNING OFFICER by Rob Núñez
[2020-09-25 13:04] VITALS: O2SAT 99
[2020-09-25 13:10] VITALS: BP 102/62; TEMP 97.8
== END 2020-09-25 06:17 | disposition home or self-care (01) ==
LOC: ER 01:52
DX: D72.829 Elevated white blood cell count, unspecified (principal); R10.819 Abdominal tenderness, unspecified site; Z79.82 Long term (current) use of aspirin; Z88.2 Allergy status to sulfonamides; Z88.5 Allergy status to narcotic agent
CPT/HCPCS: 36415; 71045; 74177; 80048; 80076; 81003; 81025; 83690; 83735; 83880; 84484; 85025; 93005; 96361; 96374; 96375; 99284; C9113; J1170; J2405; J2550; J7030; Q9967

== ENCOUNTER 2021-01-08 02:45 | Observation (INO) | payer SELFPAY ==
--- OUTSIDE RECORDS SUMMARY | 2021-01-08 02:48 | XMS REPORT | Continuity of Care Document ---
:1985 Author Organization [facility] t Address [address] [place] [address] Care Team Providers Name Role Phone Andrea [...] Date/Time Type Type Clinicians Facility Department ID 2020-12-20 2020-12-20 Refill Mendez [facility] [place] [id number] 00:00:00 00:00:00 Johny Apportable [id number] [place] [id number] Professio [phone] nal [address] 2020-11-29 2020-11-29 RefROBERT Morse [id number] 00:00:00 00:00:00 [facility] [id number] [place] [id number] Professio [phone] nal [address] 2020-10-29 2020-10-29 Refpaolo Mendez FLSHEELA 1.2.840.114 [id number] 00:00:00 00:00:00 Johny [facility] [id number] [place] [id number] Professio [phone] nal [address] 2020-09-08 2020-09-08 Refpaolo Mendez [facility] [place] [id number] 00:00:00 00:00:00 [facility] [id number] [place] [id number] Professio [phone] [place] [address] [address] 2020-09-06 2020-09-06 Refill Andrea [facility] [place] 1.2.840.114 [id number] 00:00:00 00:00:00 [facility] [id number] [place] [id number] Professio [phone] [place] [address] [address] 2020-08-28 2020-08-28 [facility] 1.2.840.114 [id number] 06:54:45 07:09:45 ne Visit [facility] [id number] [place] [id number] Professio [phone] [place] [address] [address] 2020-08-27 2020-08-27 Telephone Andrea [facility] [id number] 00:00:00 00:00:00 [facility] [id number] [place] [id number] Professio [phone] [place] [address] [address] 2020-08-16 2020-08-16 Refpaolo Mendez [facility] [place] 1.2.840.114 [id number] 97 00:00:00 00:00:00 [facility] [id number] [place] [id number] Professio [phone] [place] [address] [address] 2020-07-30 2020-07-30 [facility] 1.2.840.114 [id number] 00:00:00 00:00:00 [facility] [id number] [place] [id number] Professio [phone] [place] [address] [address] 2020-07-16 2020-07-16 Refpaolo Mendez [facility] [place] 1.2.840.114 [id number] 00:00:00 00:00:00 [facility] [id number] [place] [id number] Professio [phone] [place] [address] [address] 2020-07-12 2020-07-12 Refill Andrea FLSHEELA 1.2.840.114 [id number] 00:00:00 00:00:00 Johny Farris [id number] [place] [id number] Professio [phone] [place] [address] [address] 2020-06-05 2020-06-05 Telemedici Andrea FLSHEELA 1.2.840.114 [id number] 08:26:20 08:41:20 ne Visit Johny Lazcano [id number] [place] [id number] Professio [phone] [address] 2020-05-31 2020-05-31 Refill Andrea [facility] [place] 1.2.840.114 [id number] 00:00:00 00:00:00 Johny Farris [id number] [place] [id number] Professio [phone] [place] [address] [address] 2020-05-02 2020-05-02 Office Andrea [facility] [place] 1.2.840.114 [id number] 09:22:36 09:37:36 Visit Johny Lazcano [id number] [place] [id number] Professio [phone] [address] 2018-08-05 2018-08-05 Orders Doctor SYLVIE 1.2.840.114 [id number] 00:00:00 00:00:00 Only Unassigned, ISABELLA [id number] [place] [facility] [id number] [phone] 009 Results This patient has no known results.
[2021-01-08] MEDS ORDERED: NA CHLORIDE 0.9% 1,000 ML ONE (03:29)
[2021-01-08 03:32] LABS: Absolute Lymphocytes (CBC) 3.3 K/uL (0.7-4.9); Basophils % 0.5 % (0-1.3); Hematocrit 41.7 % (36.0-45.0); Lymphocytes % 24.6 % (15.3-44.8); MPV 7.7 fL (7.6-11.3); Protime INR 0.93; RBC Red Blood Cell Count 4.89 M/uL (3.86-4.86)
[2021-01-08] MEDS ORDERED: FENTANYL CITR 100 MCG/2 ML ONE (03:41)
[2021-01-08] MEDS ORDERED: ONDANSETRON 4 MG/2 ML VIAL ONE ×2 (03:41→06:37)
[2021-01-08 04:25] LABS: ALT/SGPT 17 U/L (12-78); AST/SGOT 13 U/L (15-37); Albumin 3.3 g/dL (3.4-5.0); Alkaline Phosphatase 83 U/L (45-117); BUN Blood Urea Nitrogen 8 mg/dL (7-18); Bicarbonate 22 mmol/L (21-32); Bilirubin Direct < 0.1 mg/dL (0-0.2); Bilirubin Total 0.4 mg/dL (0.2-1.0); Glucose Level 100 mg/dL (74-106); Lipase 281 U/L (73-393); Magnesium 1.9 mg/dL (1.8-2.4); NT PRO-BNP 72 pg/mL (<125); Potassium 3.9 mmol/L (3.5-5.1); Protein, Total 6.6 g/dL (6.4-8.2); Sodium Level 142 mmol/L (136-145); Troponin (Emerg Dept Use Only) < 0.02 ng/mL (0.0-0.045)
[2021-01-08] MEDS ORDERED: METHYLPREDNISOLONE 125 MG INJ ONE (05:02)
[2021-01-08 06:34] LABS: Urine Blood NEGATIVE (NEG); Urine Glucose NEGATIVE (NEG); Urine Protein NEGATIVE (NEG)
--- NOTE | 2021-01-08 06:35 | ER ---
Nurse's Notes [facility] Name: Chela Mcdermott Age: 35 yrs Sex: Female : 1985 Arrival Date: 01/08/2021 Time: 02:48 Bed 5 Private MD: Diagnosis: Other chest pain-MULTIPLE PULMONARY NODULES;Lupus erythematosus;Nausea and vomiting;Elevated white blood cell count Presentation: 01/08 02:59 Chief complaint: Patient states: Reports she has been having neck pain and rib spasms ea that are causing her to have bouts of vomiting. Coronavirus screen: At this time, the client does not indicate any symptoms associated with coronavirus-19. Ebola Screen: No symptoms or risks identified at this time. Initial Sepsis Screen: Does the patient meet any 2 criteria? No. Patient's initial sepsis screen is negative. Does the patient have a suspected source of infection? No. Patient's initial sepsis screen is negative. Risk Assessment: Do you want to hurt yourself or someone else? Patient reports no desire to harm self or others. Onset of symptoms was January 08, 2021. 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 - Social history:: Smoking status: Patient denies any tobacco usage or history of. Screenin:04 Abuse screen: Denies threats or abuse. Denies injuries from another. Nutritional rr5 screening: No deficits noted. Tuberculosis screening: No symptoms or risk factors identified. Fall Risk IV access (20 points). Total Infante Fall Scale indicates No Risk (0-24 pts). 03:05 Abuse screen: Denies threats or abuse. Nutritional screening: No deficits noted. ea Tuberculosis screening: No symptoms or risk factors identified. Fall Risk IV access (20 points). Assessment: 03:06 General: Appears in no apparent distress. Behavior is calm, cooperative, appropriate ea for age. Pain: Complains of pain in neck. Neuro: Level of Consciousness is awake, alert, obeys commands, Oriented to person, place, time, situation. Cardiovascular: Patient's skin is warm and dry. Respiratory: Airway is patent Respiratory effort is even, unlabored, Respiratory pattern is regular, symmetrical. GI: Abdomen is non-distended, Reports nausea, vomiting. Derm: Skin is pink, warm \T\ dry. 04:00 Reassessment: Patient appears in no apparent distress at this time. Patient is alert, rr5 oriented x 3, equal unlabored respirations, skin warm/dry/pink. Patient states symptoms have improved. 05:00 Reassessment: Patient appears in no apparent distress at this time. Patient is alert, rr5 oriented x 3, equal unlabored respirations, skin warm/dry/pink. back from CT scan. 06:05 Reassessment: Patient appears in no apparent distress at this time. Patient is alert, rr5 oriented x 3, equal unlabored respirations, skin warm/dry/pink. went to restroom ambulatory steady gait, urine specimen given. 06:18 Reassessment: complaints of nausea, ED provider aware with order made and carried out, rr5 reassess and explained the results at bedside. Vital Signs: 02:59 Pulse 91; Resp 18; Temp 97.6; Pulse Ox 99% ; Weight 61.23 kg; Height 5 ft. 2 in. ea (157.48 cm); 02:59 BP 74 / 49; rr5 03:13 BP 168 / 121; Pulse 88; Resp 19; Pulse Ox 98% ; rr5 03:13 BP 161 / 108; Pulse 88; Resp 20; Pulse Ox 100% on R/A; ea 03:15 BP 154 / 53; Pulse 85; Resp 20; Pulse Ox 100% ; rr5 03:18 BP 129 / 99; Pulse 83; Resp 17; Pulse Ox 100% ; rr5 04:13 BP 130 / 79; Pulse 65; Resp 16; Pulse Ox 98% ; rr5 05:15 BP 129 / 72; Pulse 71; Resp 19; Pulse Ox 98% ; rr5 06:17 BP 116 / 89; Pulse 70; Resp 17; Pulse Ox 98% ; rr5 02:59 Body Mass Index 24.69 (61.23 kg, 157.48 cm) ea ED Course: 02:48 Patient arrived in ED. am4 02:52 Natalie Ochoa, RN is Primary Nurse. ea 02:53 Julian Murray MD is Attending Physician. erum 03:04 Triage completed. ea 03:05 Patient has correct armband on for positive identification. Bed in low position. Call rr5 light in reach. Side rails up X2. Pulse ox on. NIBP on. 03:05 Arm band placed on right wrist. Patient placed in an exam room, on a stretcher, on ea pulse oximetry. 03:07 No provider procedures requiring assistance completed. rr5 03:12 Missed attempt(s): 20 gauge in left antecubital area. 22 gauge in right forearm. ds4 Bleeding controlled, band aid applied, catheter tip intact. 03:20 EKG done, by ED staff, reviewed by Julian Murray MD. rr5 03:25 Inserted saline lock: 18 gauge in left EJ, using aseptic technique. ,using aseptic rr5 technique. inserted by dr. murray Blood collected. 03:30 XRAY Chest (1 view) In Process Unspecified. EDMS 03:38 COVID swab sent to lab. rr5 04:30 Inserted saline lock: 22 gauge in right wrist, using aseptic technique. ,using aseptic rr5 technique. inserted by natalie. 05:18 CT Chest For PE Angio In Process Unspecified. EDMS 06:32 Nile Palmer MD is Hospitalizing Provider. erum Administered Medications: 03:20 Drug: NS 0.9% 1000 ml {Note: left EJ.} Route: IV; Rate: 1 bolus; Site: Other; rr5 04:50 Follow up: Response: No adverse reaction; IV Status: Completed infusion; IV Intake: ea 1000ml 03:20 Drug: Zofran (Ondansetron) 4 mg {Note: left EJ.} Route: IVP; Site: Other; rr5 04:49 Follow up: Response: No adverse reaction ea 03:22 Drug: fentaNYL (PF) 25 mcg {Note: left EJ rass 0.} Route: IVP; Site: Other; rr5 04:49 Follow up: Response: No adverse reaction ea 04:49 Follow up: Response: No adverse reaction ea 04:48 Drug: SOLU-Medrol 125 mg {Note: left EJ.} Route: IVP; Site: Other; ea 06:16 Follow up: Response: No adverse reaction rr5 04:49 Drug: fentaNYL (PF) 25 mcg {Note: rass 1.} Route: IVP; Site: Other; ea 06:00 Follow up: Response: No adverse reaction; RASS: Alert and Calm (0) rr5 06:20 Drug: Zofran (Ondansetron) 4 mg Route: IVP; Site: right wrist; ea 06:52 Follow up: Response: No adverse reaction rr5 06:40 Drug: Rocephin 1 grams {Note: left EJ.} Route: IV; Rate: per protocol; Site: Other; rr5 06:48 Drug: fentaNYL (PF) 25 mcg {Note: left EJ.} Route: IVP; Site: Other; rr5 06:51 Dru mg of (Zithromax 500 mg, NS 0.9% 250 ml) {Note: Left EJ.} Route: IVPB; rr5 Infused Over: 1 hrs; Site: Other; Intake: 04:50 IV: 1000ml; Total: 1000ml. ea Outcome: 06:34 Decision to Hospitalize by Provider. [facility] 08:48 Patient left the ED. aa5 Signatures: Dispatcher [employer] EDMS Julian Murray MD MD cha Calderon, Audri RN RN aa5 Joey Arechiga ds4 Natalie Ochoa RN RN ea Roque, Raymond, RN RN rr5 Marilyn Degroot am4 Corrections: (The following items were deleted from the chart) 03:42 03:41 Reassessment: Patient appears in no apparent distress at this time. Patient is rr5 alert, oriented x 3, equal unlabored respirations, skin warm/dry/pink. discharge instruction given and explained without complaints made rr5
--- NOTE | 2021-01-08 06:36 | EDPHYS ---
Physician Documentation [facility] Name: Chela Mcdermott Age: 35 yrs Sex: Female : 1985 Arrival Date: 01/08/2021 Time: 02:48 Bed 5 Private MD: ELIZABETH Physician Julian Murray HPI: 01/08 03:21 This 35 yrs old Female presents to ER via Wheelchair with complaints of erum Nausea/Vomiting, Neck Problem. 03:21 The patient presents to the emergency department with nausea, vomiting, that is erum continuous. Onset: The symptoms/episode began/occurred yesterday. Possible causes: unknown. The symptoms are aggravated by nothing. The symptoms are alleviated by nothing. Associated signs and symptoms: The patient has no apparent associated signs or symptoms. Severity of symptoms: At their worst the symptoms were moderate severe in the emergency department the symptoms are unchanged. The patient has not experienced similar symptoms in the past. 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 - Social history:: Smoking status: Patient denies any tobacco usage or history of. ROS: 03:22 Constitutional: Negative for fever, chills, and weight loss, Eyes: Negative for injury, erum pain, redness, and discharge, ENT: Negative for injury, pain, and discharge, Neck: Negative for injury, pain, and swelling, Cardiovascular: Negative for chest pain, palpitations, and edema, Back: Negative for injury and pain, : Negative for injury, bleeding, discharge, and swelling, MS/Extremity: Negative for injury and deformity, Skin: Negative for injury, rash, and discoloration, Neuro: Negative for headache, weakness, numbness, tingling, and seizure, Psych: Negative for depression, anxiety, suicide ideation, homicidal ideation, and hallucinations, Allergy/Immunology: Negative for hives, rash, and allergies, Endocrine: Negative for neck swelling, polydipsia, polyuria, polyphagia, and marked weight changes, Hematologic/Lymphatic: Negative for swollen nodes, abnormal bleeding, and unusual bruising. 03:22 Respiratory: Positive for cough, pleurisy, shortness of breath. 03:22 Abdomen/GI: Positive for nausea and vomiting. Exam: 03:22 Head/Face: Normocephalic, atraumatic. Eyes: Pupils equal round and reactive to light, erum extra-ocular motions intact. Lids and lashes normal. Conjunctiva and sclera are non-icteric and not injected. Cornea within normal limits. Periorbital areas with no swelling, redness, or edema. ENT: Nares patent. No nasal discharge, no septal abnormalities noted. Tympanic membranes are normal and external auditory canals are clear. Oropharynx with no redness, swelling, or masses, exudates, or evidence of obstruction, uvula midline. Mucous membranes moist. Neck: Trachea midline, no thyromegaly or masses palpated, and no cervical lymphadenopathy. Supple, full range of motion without nuchal rigidity, or vertebral point tenderness. No Meningismus. Chest/axilla: Normal chest wall appearance and motion. Nontender with no deformity. No lesions are appreciated. Cardiovascular: Regular rate and rhythm with a normal S1 and S2. No gallops, murmurs, or rubs. Normal PMI, no JVD. No pulse deficits. Respiratory: Lungs have equal breath sounds bilaterally, clear to auscultation and percussion. No rales, rhonchi or wheezes noted. No increased work of breathing, no retractions or nasal flaring. Abdomen/GI: Soft, non-tender, with normal bowel sounds. No distension or tympany. No guarding or rebound. No evidence of tenderness throughout. Back: No spinal tenderness. No costovertebral tenderness. Full range of motion. Skin: Warm, dry with normal turgor. Normal color with no rashes, no lesions, and no evidence of cellulitis. MS/ Extremity: Pulses equal, no cyanosis. Neurovascular intact. Full, normal range of motion. Neuro: Awake and alert, GCS 15, oriented to person, place, time, and situation. Cranial nerves II-XII grossly intact. Motor strength 5/5 in all extremities. Sensory grossly intact. Cerebellar exam normal. Normal gait. Psych: Awake, alert, with orientation to person, place and time. Behavior, mood, and affect are within normal limits. 03:22 Constitutional: The patient appears diaphoretic, in obvious distress, moderately distressed. 03:22 Musculoskeletal/extremity: ROM: no acute changes, intact in all extremities, full active range of motion, full passive range of motion, Circulation is intact in all extremities. Pulses: Sensation intact. Compartment Syndrome exam of affected extremity: is normal. DVT Exam: No signs of deep vein thrombosis. no pain, no swelling, no tenderness, negative Homans' sign noted on exam, no appreciated bluish discoloration, no erythema, no increased warmth. 03:26 ECG was reviewed by the Attending Physician. [facility] Vital Signs: 02:59 Pulse 91; Resp 18; Temp 97.6; Pulse Ox 99% ; Weight 61.23 kg; Height 5 ft. 2 in. ea (157.48 cm); 02:59 BP 74 / 49; rr5 03:13 BP 168 / 121; Pulse 88; Resp 19; Pulse Ox 98% ; rr5 03:13 BP 161 / 108; Pulse 88; Resp 20; Pulse Ox 100% on R/A; ea 03:15 BP 154 / 53; Pulse 85; Resp 20; Pulse Ox 100% ; rr5 03:18 BP 129 / 99; Pulse 83; Resp 17; Pulse Ox 100% ; rr5 04:13 BP 130 / 79; Pulse 65; Resp 16; Pulse Ox 98% ; rr5 05:15 BP 129 / 72; Pulse 71; Resp 19; Pulse Ox 98% ; rr5 06:17 BP 116 / 89; Pulse 70; Resp 17; Pulse Ox 98% ; rr5 02:59 Body Mass Index 24.69 (61.23 kg, 157.48 cm) ea Procedures: 03:26 Peripheral line: by aseptic technique a peripheral line was placed in the left external erum jugular vein. MDM: 02:53 Patient medically screened. [facility] 03:24 Differential diagnosis: Nonspecific abd pain, gastritis, viral gastroenteritis, erum gastroenteritis. Data reviewed: vital signs, nurses notes, lab test result(s), EKG, radiologic studies, CT scan, plain films. 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 Test interpretation: by ED physician or midlevel provider: ECG, plain radiologic studies. Counseling: I had a detailed discussion with the patient and/or guardian regarding: the historical points, exam findings, and any diagnostic results supporting the discharge/admit diagnosis, lab results, radiology results. 01/08 03:12 Order name: Basic Metabolic Panel 01/08 03:12 Order name: CBC with Diff 01/08 03:12 Order name: LFT's; Complete Time: 04:37 ea 01/08 03:12 Order name: Magnesium; Complete Time: 04:37 ea 01/08 03:12 Order name: NT PRO-BNP; Complete Time: 04:37 ea 01/08 03:12 Order name: PT-INR; Complete Time: 04:37 ea 01/08 03:12 Order name: Troponin (emerg Dept Use Only); Complete Time: 04:37 ea 01/08 03:13 Order name: Basic Metabolic Panel; Complete Time: 04:37 EDMS 01/08 03:13 Order name: CBC with Automated Diff; Complete Time: 04:37 EDMS 01/08 03:20 Order name: UDS [facility] 01/08 03:27 Order name: Lipase; Complete Time: 04:37 EDMS 01/08 03:12 Order name: XRAY Chest (1 view) 01/08 03:20 Order name: CT Chest For PE Angio [facility] 01/08 05:02 Order name: SARS-COV-2 RT PCR; Complete Time: 05:56 EDMS 01/08 06:17 Order name: Urine Dipstick--Ancillary (enter results); Complete Time: 06:39 eb 01/08 06:17 Order name: Urine --Ancillary (enter results); Complete Time: 06:39 eb 01/08 06:31 Order name: Blood Culture Adult (2) [facility] 01/08 06:40 Order name: CRP [facility] 01/08 06:40 Order name: Procalcitonin [facility] 01/08 06:40 Order name: Sed Rate [facility] 01/08 03:12 Order name: EKG; Complete Time: 03:13 ea 01/08 03:12 Order name: Cardiac monitoring; Complete Time: 03:22 ea 01/08 03:12 Order name: EKG - Nurse/Tech; Complete Time: 03:22 ea 01/08 03:12 Order name: IV Saline Lock; Complete Time: 03:22 ea 01/08 03:12 Order name: Labs collected and sent; Complete Time: 03:22 ea 01/08 03:12 Order name: O2 Per Protocol; Complete Time: 03:22 ea 01/08 03:12 Order name: O2 Sat Monitoring; Complete Time: 03:22 ea 01/08 03:20 Order name: Urine Dipstick-Ancillary (obtain specimen); Complete Time: 06:17 erum 01/08 03:20 Order name: Urine Test (obtain specimen); Complete Time: 06:17 erum EC:26 Rate is 83 beats/min. Rhythm is regular. QRS [place] is Normal. NM interval is normal. QRS erum interval is normal. QT interval is normal. No Q waves. T waves are Normal. No ST changes noted. Clinical impression: NSR w/ Non-specific ST/T Changes and No evidence of ischemia. Interpreted by me. Reviewed by me. Administered Medications: 03:20 Drug: NS 0.9% 1000 ml {Note: left EJ.} Route: IV; Rate: 1 bolus; Site: Other; rr5 04:50 Follow up: Response: No adverse reaction; IV Status: Completed infusion; IV Intake: ea 1000ml 03:20 Drug: Zofran (Ondansetron) 4 mg {Note: left EJ.} Route: IVP; Site: Other; rr5 04:49 Follow up: Response: No adverse reaction ea 03:22 Drug: fentaNYL (PF) 25 mcg {Note: left EJ rass 0.} Route: IVP; Site: Other; rr5 04:49 Follow up: Response: No adverse reaction ea 04:49 Follow up: Response: No adverse reaction ea 04:48 Drug: SOLU-Medrol 125 mg {Note: left EJ.} Route: IVP; Site: Other; ea 06:16 Follow up: Response: No adverse reaction rr5 04:49 Drug: fentaNYL (PF) 25 mcg {Note: rass 1.} Route: IVP; Site: Other; ea 06:00 Follow up: Response: No adverse reaction; RASS: Alert and Calm (0) rr5 06:20 Drug: Zofran (Ondansetron) 4 mg Route: IVP; Site: right wrist; ea 06:52 Follow up: Response: No adverse reaction rr5 06:40 Drug: Rocephin 1 grams {Note: left EJ.} Route: IV; Rate: per protocol; Site: Other; rr5 06:48 Drug: fentaNYL (PF) 25 mcg {Note: left EJ.} Route: IVP; Site: Other; rr5 06:51 Dru mg of (Zithromax 500 mg, NS 0.9% 250 ml) {Note: Left EJ.} Route: IVPB; rr5 Infused Over: 1 hrs; Site: Other; Disposition: 01/08/21 06:34 Hospitalization ordered by Nile Palmer for Observation. Preliminary diagnosis are Other chest pain - MULTIPLE PULMONARY NODULES, Lupus erythematosus, Nausea and vomiting, Elevated white blood cell count. - Bed requested for Telemetry/MedSurg (observation). - Status is Observation. aa5 - Condition is Stable. - Problem is new. - Symptoms have improved. Signatures: Dispatcher [employer] EDMS Julian Murray MD MD cha Calderon, Audri, RN RN aa5 Natalie Ochoa RN RN Pham Abdul Raymond, RN RN rr5 Corrections: (The following items were deleted from the chart) 03:27 03:21 LIPASE+C.LAB.BRZ ordered. EDMI EDMS 04:01 03:57 CORONAVIRUS ordered. EDMI EDMS 08:08 06:34 Hospitalization Ordered by Nile Palmer MD for Observation. Preliminary eb diagnosis is Other chest pain - MULTIPLE PULMONARY NODULES; Lupus erythematosus; Nausea and vomiting; Elevated white blood cell count. Bed requested for Telemetry/MedSurg (observation). Status is Observation. Condition is Stable. Problem is new. Symptoms have improved. erum 08:48 08:08 01/08/2021 06:34 Hospitalization Ordered by Nile Palmer MD for Observation. aa5 Preliminary diagnosis is Other chest pain - MULTIPLE PULMONARY NODULES; Lupus erythematosus; Nausea and vomiting; Elevated white blood cell count. Bed requested for Telemetry/MedSurg (observation). Status is Observation. Condition is Stable. Problem is new. Symptoms have improved. eb
[2021-01-08 06:45] LABS: Barbiturates NEGATIVE (NEGATIVE); Benzodiazepines POSITIVE (NEGATIVE); Cocaine NEGATIVE (NEGATIVE); METHAMPHETAM NEGATIVE (NEGATIVE); Methadone NEGATIVE (NEGATIVE); Opiates NEGATIVE (NEGATIVE); Phencyclidine NEGATIVE (NEGATIVE); THC Cannibis POSITIVE (NEGATIVE)
[2021-01-08] MEDS ORDERED: CEFTRIAXONE 1000 MG/VIAL ONE (06:55)
[2021-01-08] MEDS ORDERED: NA CHLORIDE 0.9% 250 ML ONE (06:56)
[2021-01-08] MEDS ORDERED: AZITHROMYCIN 500 MG INJ IVPB ONE (06:56)
--- NOTE | 2021-01-08 07:52 | P.HP ---
Certification for Inpatient Patient admitted to: Observation With expected LOS: <2 Midnights Practitioner: I am a practitioner with admitting privileges, knowledge of patient current condition, hospital course, and medical plan of care. Services: Services provided to patient in accordance with Admission requirements found in Title 42 Section 412.3 of the Code of Federal Regulations Patient History Date of Service: 01/08/21 Reason for admission: Severe neck pain, intractable nausea/vomiting History of Present Illness: 35yo F, PMH: Lupus, R Suprascapular neuropathy, PE presented to ED due to severe/intractable right neck pain, rib spasms, causing intractable nausea/vomiting. Patient states she can get these episodes every few weeks. This is been ongoing for many years since she had trauma to her neck. Typically she can manage at home, but occasionally presents to the ER. Patient states she does have an episode and was slowly improving, decided to go to [facility] hot tub with Epson salts to improve more, however upon exiting the hot tub she had worsening of her symptoms. She states change in weather typically exacerbate these symptoms. She sees Dr. 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 She reports trying multiple other medications to no avail for these spasms / pain. She currently uses valium, norco 10, and zofran for these episodes. At times, she will self- medicate with marijuana as well. In the ED, labwork notable for mild leukocytosis of 13.6, otherwise unremarkable. Urine tox: Positive for benzos and THC. CTA chest: No PE, multiple solid pulmonary nodules, largest in the left lower lobe measuring 4 mm. May be infectious or inflammatory etiology. ED physician requested the patient be brought in under observation due to continued pain and nausea/vomiting. She had mild improvement with multiple doses of fentanyl in the ED. Allergies Sulfa (Sulfonamide Antibiotics) [Sulfa(Sulfonamide Antibiotics)] Allergy (Intermediate, Verified 06/18/12 21:26) Anaphylaxis morphine Allergy (Verified 01/08/21 09:28) Unknown Home Medications: Alprazolam [Xanax] 0.5 mg PO BEDTIME PRN PRN 09/05/12 Hydrocodone Bit/Acetaminophen [Hydrocodon-Acetaminophn 10-325] 1 each PO Q4HP PRN 09/05/12 Zolpidem Tartrate [Ambien] 10 mg PO BEDTIME PRN PRN 09/05/12 Cefuroxime Axetil [Ceftin] 500 mg PO BID #0 tablet 09/07/12 Dextroamphetamine/Amphetamine [Adderall 10 mg Tablet] 30 mg PO PRN 01/08/21 Diazepam [Valium] 5 mg PO DAILY 01/08/21 - Past Medical/Surgical History Diabetic: No -: Lupus -: Pulmonary embolus -: Suprascapular neuropathy Past Surgical History: Patient denies surgical history - Family History Father -: Hypertension Mother -: Hypertension - Social History Smoking Status: Never smoker Alcohol use: Yes CD- Drugs: No Caffeine use: Yes Place of Residence: Home Review of Systems 10-point ROS is otherwise unremarkable Physical Examination - Physical Exam General: Alert, Mild distress HEENT: PERRLA, Sclerae nonicteric Neck: Supple, Other (Tenderness to palpation along the right neck- sternocleidomastoid, and supraclavicular/ suprascapular area.) Respiratory: Clear to auscultation bilaterally, Normal air movement Cardiovascular: No edema, Regular rate/rhythm, Normal S1 S2 Gastrointestinal: Soft and benign, Non-distended, No tenderness Integumentary: No rashes, No significant lesion Neurological: Normal speech, Normal strength at 5/5 x4 extr, Normal affect - Studies Laboratory Data (last 24 hrs) 01/08/21 03:20: Lipase Cancelled 01/08/21 03:17: PT 10.7, INR 0.93 01/08/21 03:17: WBC 13.60 H, Hgb 13.5, Hct 41.7, Plt Count 341 01/08/21 03:17: Sodium 142, Potassium 3.9, BUN 8, Creatinine 0.62, Glucose 100, Magnesium 1.9, Total Bilirubin 0.4, AST 13 L, ALT 17, Alkaline Phosphatase 83, Lipase 281 Assessment and Plan - Advance Directives Does patient have a Living Will: No Does patient have a Durable POA for Healthcare: No Physician Review Additional Text: Problem List: Severe right neck pain, rib spasms, nausea/vomiting Lupus Suprascapular neuropathy multiple pulmonary nodules - incidental findings Remote history of PE -at time of my examination - patient more comfortable but still in mild distress -will continue home pain medication regimen to evaluate if stable to be discharged later on this -discussed case briefly with her neurologist - Dr. Junior, agreed with obtaining updated MRI of c-spine -PDMP reviewed, no red flags, patient with recent prescriptions for [place] 10 and valium, will continue -full liquid diet and gentle IVF for now as patient has been vomiting -check procalcitonin and CRP -pulm nodules - all subcentimeter, largest was previously seen on CT last year, recommend outpatient f/u / repeat in a few months VTE: lovenox Dispo: anticipate dc home in 24-48hrs Time Spent Managing Pts Care (In Minutes): 65
--- NOTE | 2021-01-08 08:04 | RAD REPORT ---
EXAM DESCRIPTION: [facility] Single View01/08/2021 3:30 am CLINICAL HISTORY: Chest pain COMPARISON: 2019 FINDINGS: The lungs appear clear of acute infiltrate. The heart is normal size IMPRESSION: No acute abnormalities displayed
[2021-01-08] MEDS: HYDROCODONE/APAP 10/325 TAB PO PRN ×2 (09:30→16:49)
[2021-01-08] MEDS: ONDANSETRON 4 MG (ODT) TAB PO PRN ×2 (09:30→20:51)
[2021-01-08] MEDS: NA CHLORIDE 0.9% 1,000 ML IV SCH ×3 (09:31→23:42)
[2021-01-08] MEDS: DIAZEPAM 5 MG TABLET PO PRN ×2 (10:05→16:49)
--- NOTE | 2021-01-08 10:36 | RAD REPORT ---
EXAM DESCRIPTION: CT - Chest For Pe Angio - 01/08/2021 6:54 am CLINICAL HISTORY: Chest pain;Cough COMPARISON: None Available. TECHNIQUE: CTA of the chest obtained following the uncomplicated intravenous administration of iodin ated contrast. 3-D/MIP reformatted images of the chest available for evaluation. The most inferior kristyn ng bases are not visualized on this study. FINDINGS: Chest: Pulmonary arteries: Contrast bolus is adequate.No filling defects identified in the pulmonary arterie s to suggest pulmonary embolus. Thyroid: No abnormalities of the visualized thyroid. Great Vessels: Great vessels have normal anatomic configuration. Thoracic Aorta: No abnormalities of the thoracic aorta identified. Heart: No cardiomegaly, significant pericardial effusion, or coronary artery atherosclerosis Lymph Nodes: No enlarged mediastinal lymph nodes identified. Esophagus: No abnormalities of the esophagus identified. Other: No additional findings. Lungs: No focal airspace consolidation. Multiple solid pulmonary nodules identified in the lung, larg est in the left lower lobe measuring 5 mm. Pleura: No pleural effusion or pneumothorax. Trachea/Airways: No abnormalities of the visualized trachea or airways. Bones: No destructive osseous lesions. Upper Abdomen: Limited images of the upper abdomen demonstrate no definite abnormalities of visualize d portions of the liver and spleen. IMPRESSION: 1. No pulmonary embolus. 2. Multiple solid pulmonary nodules, the largest in the left lower lobe measuring 4 mm. This may be o f infectious or inflammatory etiology. Follow-up imaging in 6 months recommended to document stabilit y. This exam was performed according to our departmental dose-optimization program, which includes autom ated exposure control, adjustment of the mA and/or kV according to patient size and/or use of iterati ve reconstruction technique. Electronically signed by: Rene Gresham 01/08/2021 5:35 AM JAVA APPLICATION DEVELOPER Due to temporary technical issues with the PACS/Fluency reporting system, reports are being signed by the in house radiologists without review as a courtesy to insure prompt reporting. The interpreting radiologist is fully responsible for the content of the report.
[2021-01-08] MEDS ORDERED: PNEUMOCOCCAL VACCINE 0.5 ML IMVAC ONE (11:00)
[2021-01-08 12:09] VITALS: BMI 23.8
--- NOTE | 2021-01-08 16:36 | RAD REPORT ---
EXAM DESCRIPTION: MRI - C Spine W/Wo Cont - 01/08/2021 4:25 pm CLINICAL HISTORY: R neck pain, severe COMPARISON: None. TECHNIQUE: Sagittal T1-weighted, T2-weighted and T2-FLAIR sequences as well as axial T2 medic sequen ce obtained. Sagittal and axial post contrast T1-weighted images were obtained following 14 ml of Gd contrast material. FINDINGS: Cervical vertebral bodies are normal in height and alignment. No suspicious marrow edema o r marrow replacing process. Cerebellar tonsils and mid-line skull base show no suspicious finding. No significant finding at the C1 and C2 levels. C2-3 level: No significant findings. C3-4 level: Disc bulge changes are present in the central canal extending into each exit foramen. Ant erior subarachnoid space is partially attenuated. Midline canal diameter is 10 mm. Bilateral foramina l encroachment changes are present worse on the left. C4-5 level: Disc bulge and endplate spurring changes are present in each exit foramen. No central spi nal stenosis. Left foraminal encroachment changes are present. C5-6 level: No significant findings. C7-T1 level: No significant findings. Cervical cord shows no focal narrowing, expansion or signal abnormality. No abnormal enhancement on t he post-contrast images. IMPRESSION: Disc bulge and endplate spurring changes are present as detailed at C3-4 and C4-5. Bilat eral C3-4 and left C4-5 foraminal encroachment present. No cord flattening or cord signal abnormality.
[2021-01-08] MEDS ORDERED: ENOXAPARIN 40 MG/0.4 ML SQ SCH (17:00)
[2021-01-08] MEDS ORDERED: TIZANIDINE 4 MG TABLET PO SCH (21:00)
--- NOTE | 2021-01-08 23:38 | CON ---
Date of Consultation: 01/08/2021 Reason: Neck pain. History: This is a 35-year-old lady, whom I have seen in the past under different surname, Bridget, with same problem. However, she has EMG confirmed suprascapular neuropathy. She has chronic neck pa in and shoulder pain and gets spasms into her ribs and there may be an underlying dystonic component to the problem. We have not seen her actually in quite some time. [facility] but I have not seen her really since COV and then before COV, maybe once in 2019 . She has a remote history of lupus. The patient gets neck discomfort and spasms in the cervical pa raspinals and neck musculature as well as the trapezius. It then radiates down the right external ri b cage and she will get subjective rib spasms as well. Occasionally, we have seen her with head tilt to the right and tightness of the splenius capitis and semispinalis suggesting slight dystonic compo nent. We have tried gabapentin, Lyrica, and Cymbalta. None of those were particularly helpful. The y had side effects and made her feel foggy and confused. So, she is generally taking [place] and Valiu m through her primary care physician, Dr. Mendez. 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 She had increasing neck pain. She was at a friend's, it escalated. She went home. She went to bed and then awoke in the middle of the night with intractable neck discomfort and rib discomfort and it was too much. She came to the emergency room. She has had several visits to the emergency room over the years. Workup ensued. True arellano was found to have multiple pulmonary nodules. Chest x-ray was clear. It was on a CT and she had a CT back in 2017, that did not demonstrate that particular finding. Given the increasing neck discom fort, I was contacted this morning, reviewed it with her attending physician, thought the MRI cervica l spine would be prudent, that has been obtained. It is essentially unremarkable at least with regar d to any kind of urgent cervical spine pathology. She has a disk bulge at C3-4, 10 mm, midline canal , foraminal encroachments mild with actually worse on the left and does note there are problems on th e right. Of note, the patient has some slight joint hyperlaxity, although it is moderate at best. S he has never been evaluated for Margie-Danlos. Consultation was requested. Past Medical History: She has a remote history of lupus, suprascapular neuropathy, chronic pain. Social History: . Drinks. Normally independent with activities of daily living. Family History: Hypertension. Review of Systems: General: Good health. Eyes: Denies. Ears, Nose, Throat: Denies. Cardiovascular: Negative. Pulmonary: Nodules are noted. GI: Negative. : Negative. Musculoskeletal: As alluded to. Neurologic: As noted. Psychiatric: She has some anxiety, but otherwise negative. Endocrine: Negative. Hematologic: Negative. Physical Examination: Vital Signs: Temperature 97.5, pulse 76, respirations 20, blood pressure 112/67. General: Pleasant lady, lying in bed, in no distress. Heart: Sinus rhythm. Not tachycardic. Pain control seems reasonable. Lungs: Clear. Abdomen: Soft. Bowel sounds present. Musculoskeletal: She has mild elbow and knee joint hyperlaxity, but none in the fingers or the wrist s. She has normal range of motion about the cervical spine. Spurling's is negative. She has promin ent crepitus in the right shoulder musculature. Extremity strength is full. Supraspinatus, infraspi natus full strength. No scapular winging. Neurologic: Sensation intact. Reflexes symmetric. Cerebellar exam demonstrates no ataxia. Impression: 1.Cervical spondylosis, mild. 2.Suprascapular neuropathy. 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 Plan: I think there is no reason that the patient could not be safely discharged to home tomorrow fr om a nervous system standpoint. With regard to pain control, she has failed multiple oral medication s in the past, but given the normal liver function tests, we will go head and start her on some tizan idine tonight 2 mg and perhaps that will be adequate enough to improve symptoms, so that she can safe ly be discharged and get back in the hospital in a day or 2. She can follow up in the office. Thank you for the consult. FAHAD Voice ID: [id number] Report ID: [id number]
[2021-01-09 01:36] VITALS: O2SAT 100
[2021-01-09 05:40] LABS: Basophils % 0.4 % (0-1.3); Hematocrit 35.1 % (36.0-45.0); Lymphocytes % 26.8 % (15.3-44.8); MPV 7.6 fL (7.6-11.3)
[2021-01-09 06:00] LABS: BUN Blood Urea Nitrogen 8 mg/dL (7-18); Bicarbonate 24 mmol/L (21-32); Glucose Level 83 mg/dL (74-106); Phosphorus 3.2 mg/dL (2.5-4.9); Potassium 3.6 mmol/L (3.5-5.1); Sodium Level 143 mmol/L (136-145)
--- NOTE | 2021-01-09 07:50 | P.DS ---
Admission Date: 01/08/21 Discharge Date: 01/09/21 Disposition: ROUTINE DISCHARGE Discharge Condition: GOOD Reason for Admission: Severe neck pain, intractable nausea/vomiting Consultations: Neurology- Dr. Junior Procedures: CXR (01/08): The lungs appear clear of acute infiltrate. The heart is normal size CTA Chest (01/08): 1. No pulmonary embolus. 2. Multiple solid pulmonary nodules, the largest in the left lower lobe measuring 4 mm. This may be of infectious or inflammatory etiology. Follow-up imaging in 6 months recommended to document stability. This exam was performed according to our departmental dose-optimization program, which includes automated exposure control, adjustment of the mA and/or kV according to patient size and/or use of iterative reconstruction technique. MRI C-spine (01/08) : Disc bulge and endplate spurring changes are present as detailed at C3-4 and C4-5. Bilateral C3-4 and left C4-5 foraminal encroachment present. No cord flattening or cord signal abnormality. Problem List: Severe right neck pain, rib spasms, nausea/vomiting Lupus Suprascapular neuropathy multiple pulmonary nodules - incidental findings Remote history of PE Brief History of Present Illness: 35yo F, PMH: Lupus, R Suprascapular neuropathy, PE presented to ED due to severe/intractable right neck pain, rib spasms, causing intractable nausea /vomiting. Patient states she can get these episodes every few weeks. This is been ongoing for many years since she had trauma to her neck. Typically she can manage at home, but occasionally presents to the ER. Patient states she does have an episode and was slowly improving, decided to go to [facility] hot tub with Epson salts to improve more, however upon exiting the hot tub she had worsening of her symptoms. She states change in weather typically exacerbate these symptoms. She sees Dr. 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 She reports trying multiple other medications to no avail for these spasms / pain. She currently uses valium, norco 10, and zofran for these episodes. At times, she will self- medicate with marijuana as well. In the ED, labwork notable for mild leukocytosis of 13.6, otherwise unremarkable. Urine tox: Positive for benzos and THC. CTA chest: No PE, multiple solid pulmonary nodules, largest in the left lower lobe measuring 4 mm. May be infectious or inflammatory etiology. ED physician requested the patient be brought in under observation due to continued pain and nausea/vomiting. She had mild improvement with multiple doses of fentanyl in the ED. Hospital Course: Her home medications were resumed. Dr. Junior, her neurologist, was consulted. An MRI c-spine was obtained which revealed disc herniation, but not contributing to her current issues. Tizanidine was added, and patient had improvement in her symptoms. She was discharged home with a prescription for tizanidine as needed. She is to follow up with her PCP and Dr. Junior. Incidental pulmonary nodules were seen on CT chest. A similar nodule at her L lung base was seen last year (5mm - 09/[address] Abd/pelvis). She is asymptomatic, and should have a follow up CT chest later this year. Vital Signs/Physical Exam: Temp Pulse Resp BP Pulse Ox 98.2 F 58 15 113/66 97 01/09/21 04:00 01/09/21 04:00 01/09/21 04:00 01/09/21 04:00 01/09/21 04:00 General: Alert, In no apparent distress, Oriented x3 HEENT: Sclerae nonicteric Neck: Other (mild TTP along R SCM / suprascapular area) Cardiovascular: No edema, Regular rate/rhythm, Normal S1 S2 Gastrointestinal: Soft and benign, Non-distended, No tenderness Integumentary: No rashes, No significant lesion Neurological: Normal speech, Normal affect Laboratory Data at Discharge: WBC 11.30 K/uL (4.3-10.9) H D 01/09/21 05:26 Hgb 11.7 g/dL (12.0-15.0) L 01/09/21 05:26 Hct 35.1 % (36.0-45.0) L D 01/09/21 05:26 Plt Count 264 K/uL (152-406) D 01/09/21 05:26 PT 10.7 SECONDS (9.5-12.5) 01/08/21 03:17 INR 0.93 01/08/21 03:17 Sodium 143 mmol/L (136-145) 01/09/21 05:26 Potassium 3.6 mmol/L (3.5-5.1) 01/09/21 05:26 BUN 8 mg/dL (7-18) 01/09/21 05:26 Creatinine 0.51 mg/dL (0.55-1.3) L 01/09/21 05:26 Glucose 83 mg/dL (74-106) 01/09/21 05:26 Phosphorus 3.2 mg/dL (2.5-4.9) 01/09/21 05:26 Magnesium 2.0 mg/dL (1.8-2.4) 01/09/21 05:26 Total Bilirubin 0.4 mg/dL (0.2-1.0) 01/08/21 03:17 AST 13 U/L (15-37) L 01/08/21 03:17 ALT 17 U/L (12-78) 01/08/21 03:17 Alkaline Phosphatase 83 U/L (45-117) 01/08/21 03:17 Lipase Cancelled 01/08/21 03:20 Home Medications: Hydrocodone Bit/Acetaminophen [Hydrocodon-Acetaminophn 10-325] 1 each PO Q4HP PRN 09/05/12 Dextroamphetamine/Amphetamine [Adderall 10 mg Tablet] 30 mg PO PRN 01/08/21 Diazepam [Valium] 5 mg PO DAILY 01/08/21 Tizanidine HCl [Zanaflex] 2 mg PO BEDTIME PRN #10 capsule 01/09/21 New Medications: Tizanidine HCl [Zanaflex] 2 mg PO BEDTIME PRN #10 capsule PRN Reason: Muscle Spasms Diet: Regular Activity: Ad moraima Followup: Branden Junior MD [ACTIVE - CAN ADMIT] - Unknown,U [Primary Care Provider] - Time spent managing pt's care (in minutes): 35
[2021-01-09 08:24] VITALS: BP 144/88; TEMP 97.5
[2021-01-09] MEDS ORDERED: POTASSIUM CL SA 10 MEQ TAB PO ONE (09:00)
== END 2021-01-09 09:20 | disposition home or self-care (01) ==
LOC: ER 02:45 → 2ND 08:35
PROVIDERS: ADMIT Hospitalist; ATTEND Hospitalist
DX: M54.2 Cervicalgia (principal); R11.2 Nausea with vomiting, unspecified; M32.9 Systemic lupus erythematosus, unspecified; R91.8 Other nonspecific abnormal finding of lung field; Z86.711 Personal history of pulmonary embolism; Z20.822 Contact with and (suspected) exposure to COVID-19; G89.29 Other chronic pain; G56.80 Other specified mononeuropathies of unspecified upper limb
CPT/HCPCS: 36415; 71045; 71275; 72156; 80048; 80076; 80307; 81003; 81025; 83690; 83735; 83880; 84100; 84145; 84484; 85025; 85610; 85652; 86140; 87040; 99284; A9577; G0378; J0456; J1650; J2405; J2930; J3010; J7030; J7050; Q9967; U0003

== ENCOUNTER 2021-02-07 06:16 | Inpatient (IN) | payer SELFPAY ==
--- OUTSIDE RECORDS SUMMARY | 2021-02-07 06:18 | XMS REPORT | Continuity of Care Document ---
:[address] [facility] t Address [address] [place] [address] Care Team Providers Name Role Phone Andrea PIÑA Attending Clinician Problems This patient has no known problems. Allergies, Adverse Reactions, Alerts This patient has no known allergies or adverse reactions. Medications This patient has no known medications. Procedures This patient has no known procedures. Encounters Start End Encounter Admission Attending Care Care Encounter Source Date/Time Date/Time Type Type Clinicians Facility Department ID 2021-02-04 2021-02-04 Office ROBERT Mendez [id number] 13:04:22 13:19:22 Visit [facility] [id number] [place] [id number] [place] [id number] [address] Office [address] Results This patient has no known results.
[2021-02-07] MEDS ORDERED: METHYLPREDNISOLONE 125 MG INJ ONE (06:55)
[2021-02-07] MEDS ORDERED: MEPERIDINE HCL 50 MG/ML ONE (06:56)
[2021-02-07] MEDS ORDERED: ONDANSETRON 4 MG/2 ML VIAL ONE ×2 (06:56→08:48)
[2021-02-07 06:58] LABS: Absolute Lymphocytes (CBC) 3.9 K/uL (0.7-4.9); Basophils % 0.5 % (0-1.3); Lymphocytes % 35.7 % (15.3-44.8); MPV 7.6 fL (7.6-11.3); RBC Red Blood Cell Count 4.47 M/uL (3.86-4.86)
[2021-02-07 07:07] LABS: Protime INR 0.97
[2021-02-07 07:17] LABS: BUN Blood Urea Nitrogen 14 mg/dL (7-18); Bicarbonate 23 mmol/L (21-32); Creatine Phosphokinase 71 U/L (26-192); Glucose Level 89 mg/dL (74-106); Potassium 3.3 mmol/L (3.5-5.1); Sodium Level 143 mmol/L (136-145)
--- NOTE | 2021-02-07 07:54 | RAD REPORT ---
EXAM DESCRIPTION: Severo Single View02/07/2021 7:06 am CLINICAL HISTORY: Chest pain COMPARISON: January 08, 2021 FINDINGS: Small bilateral pulmonary nodules are without obvious change from the prior CAT scan. Ther e better seen on the CT scan. A lung consolidation is not noted. The heart is normal size IMPRESSION: No obvious change in small bilateral pulmonary opacities. Refer to CT chest report for r ecommendation
--- NOTE | 2021-02-07 08:57 | EDPHYS ---
Physician Documentation [facility] [place], [place] Name: Chela Mcdermott Age: 35 yrs Sex: Female : 1985 Arrival Date: 02/07/2021 Time: 06:18 Bed 4 Private MD: ED Physician Julio César Resendez HPI: 02/07 06:35 This 35 yrs old Female presents to ER via Wheelchair with complaints of rn Altered Mental Status. 06:37 The patient presents with confusion, seizure activity. Onset: The symptoms/episode rn began/occurred at an unknown time. Possible causes: unknown. Current symptoms: In the emergency department the patient's symptoms are unchanged from the initial presentation. The patient has experienced similar episodes in the past. The patient has not recently seen a physician. reports last known normal 0100, reported pain to back of head and neck, no trauma, no fever, had been acting fine lately. She went to bed, and shaking woke up, no hx of seizures. . Historical: - Allergies: 06:28 Morphine; bb 06:28 Sulfa (Sulfonamide Antibiotics); bb - Home Meds: 06:28 Adderall XR 30 mg Oral cp24 1 cap once daily [Active]; aspirin 325 mg Oral tab 1 tab bb twice a day [Active]; hydrocodone-acetaminophen 10-325 mg Oral tab 1 tab every 4 hours [Active]; Lyrica 75mg Oral 2 times per day [Active]; Plaquenil Oral [Active]; Valium 5 mg Oral tab 1 tab 3 times per day [Active]; - PMHx: 06:28 APLS; Lupus; PE; Suprascapular neuropathy; SVT; bb - PSHx: 06:28 1 ovary and tube removed; adnoid removed; Tonsillectomy; Cholecystectomy; Appendectomy; bb - Immunization history:: Adult Immunizations unknown. - Social history:: Smoking status: unknown. - Family history:: not pertinent. - Hospitalizations: : No recent hospitalization is reported. ROS: 06:40 Constitutional: Negative for fever, chills, and weight loss, Eyes: Negative for injury, rn pain, redness, and discharge, Neck: + pain to neck Cardiovascular: Negative for chest pain, palpitations, and edema, Respiratory: Negative for shortness of breath, cough, wheezing, and pleuritic chest pain, Abdomen/GI: Negative for abdominal pain, nausea, vomiting, diarrhea, and constipation, Back: Negative for injury and pain, : Negative for injury, bleeding, discharge, and swelling, MS/Extremity: Negative for injury and deformity, Skin: Negative for injury, rash, and discoloration, Neuro: + headache, + generalized weakness, + difficulty speaking Exam: 06:40 Constitutional: Disheveled patient, holding back of head and neck, crying Head/Face: rn Normocephalic, atraumatic. Eyes: Pupils equal round and reactive to light, extra-ocular motions intact. Periorbital areas with no swelling, redness, or edema. ENT: No tongue laceration or intraoral trauma Neck: No masses, no midline cervical tenderness Cardiovascular: Regular rate and rhythm. No pulse deficits. Respiratory: No increased work of breathing, no retractions or nasal flaring. Abdomen/GI: soft, non-tender Skin: Warm, dry MS/ Extremity: Pulses equal, no cyanosis. Neuro: Awake, alert, difficulty speaking with clenched mouth, moves all 4 extremities with somewhat weak but equal strength 4/5, able to transfer hersef to ct table from bed. Answers questions nodding yes and shaking head no. Sensation intact, localizes pain. 08:57 ECG was reviewed by the Attending Physician. kdr Vital Signs: 06:25 BP 163 / 103; Pulse 87; Resp 16 S; Temp 98(O); Pulse Ox 99% on R/A; bb 07:34 BP 113 / 97; Pulse 96; Resp 17; Pulse Ox 98% on R/A; hb 09:30 BP 133 / 92; Pulse 70; Resp 16; Pulse Ox 100% on R/A; ss 10:00 BP 124 / 72; Pulse 70; Resp 15; Pulse Ox 99% on R/A; ss 12:00 BP 124 / 88; Pulse 60; Resp 16; Pulse Ox 97% on R/A; Pain 5/10; ss NIH Stroke Scale Scores: 06:30 NIHSS Score: 8 ea MDM: 06:21 Patient medically screened. rn 06:32 ED course: Last known normal at 0100, woke up and noticed she was shaking, has rn never seen her shake before like that, lasted approx 1-2 min. No seizure hx per . reports "gets like this when things get bad, usually gets dilaudid and other stuff and gets better". No hx of CVA. . 06:46 ED course: No TPA indicated at this point, possible seizure and post ictal period, rn awaiting ct head read and labs. . 07:01 Transition of care: After a detail discussion of the patient's case, care is rn transferred to Julio César Resendez MD. 08:52 Differential Diagnosis: CVA, alcohol intoxication, hypoglycemia. Data reviewed: vital kdr signs, nurses notes, lab test result(s), EKG, radiologic studies. Counseling: I had a detailed discussion with the patient and/or guardian regarding: the historical points, exam findings, and any diagnostic results supporting the discharge/admit diagnosis, lab results, radiology results, the need for further work-up and treatment in the hospital. Physician consultation: Branden Junior MD was called at 08:53, was contacted at 08:53, regarding admission, consult, patient's condition, need to evaluate the patient as soon as possible, and will see patient in inpatient room, later today. ED course: The patient has continued to be stable in the ED. LOVE has returned though not as bad as before. Spoke to her regarding admission and eval by Dr. Junior. The patient was happy with the care provided and the plan for admission. 02/07 06:32 Order name: Magnesium; Complete Time: 07:34 rn 02/07 06:32 Order name: CPK; Complete Time: 07:34 rn 02/07 06:32 Order name: Basic Metabolic Panel; Complete Time: 07:34 rn 02/07 06:32 Order name: CBC with Diff; Complete Time: 07:34 rn 02/07 06:32 Order name: Protime (+inr); Complete Time: 07:34 rn 02/07 06:32 Order name: Ptt, Activated; Complete Time: 07:34 rn 02/07 06:32 Order name: Urine Microscopic Only rn 02/07 06:39 Order name: Urine Drug Screen rn 02/07 06:40 Order name: ETOH Level rn 02/07 06:40 Order name: Alcohol Serum/Plasma; Complete Time: 07:34 EDMS 02/07 07:06 Order name: Glucose, Ancillary Testing; Complete Time: 07:34 EDMS 02/07 09:13 Order name: Urine --Ancillary (enter results) em1 02/07 10:24 Order name: SARS-COV-2 RT PCR EDMS 02/07 06:32 Order name: CT Stroke Brain w/o Contrast rn 02/07 06:32 Order name: Stroke CXR 1 View; Complete Time: 08:47 rn 02/07 06:32 Order name: EKG; Complete Time: 06:33 rn 02/07 06:32 Order name: Accucheck; Complete Time: 07:12 rn 02/07 06:32 Order name: Cardiac monitoring; Complete Time: 06:46 rn 02/07 06:32 Order name: EKG - Nurse/Tech; Complete Time: 06:46 rn 02/07 06:32 Order name: IV Saline Lock; Complete Time: 06:34 rn 02/07 06:32 Order name: Labs collected and sent; Complete Time: 07:04 rn 02/07 06:32 Order name: NPO; Complete Time: 06:34 rn 02/07 06:32 Order name: O2 Per Protocol; Complete Time: 06:34 rn 02/07 06:32 Order name: O2 Sat Monitoring; Complete Time: 06:34 rn 02/07 06:32 Order name: Stroke Swallow Screen; Complete Time: 07:04 rn 02/07 06:32 Order name: Urine Test (obtain specimen); Complete Time: 09:12 rn 02/07 06:32 Order name: Urine Dipstick-Ancillary (obtain specimen); Complete Time: 09:12 rn EC:57 Rate is 67 beats/min. Rhythm is regular, Sinus Rhythm with No ectopy. QRS [place] is kdr Normal. CO interval is normal. QRS interval is normal. QT interval is normal. Clinical impression: NSR w/ Non-specific ST/T Changes. Administered Medications: 06:40 Drug: SOLU-Medrol 125 mg Route: IVP; Site: right antecubital; sf 11:13 Follow up: Response: No adverse reaction ss 06:40 Drug: Zofran (Ondansetron) 4 mg Route: IVP; Site: right antecubital; sf 11:12 Follow up: Response: No adverse reaction ss 06:41 Drug: Demerol 50 mg Route: IVP; Site: right antecubital; sf 11:12 Follow up: Response: No adverse reaction; Pain is decreased ss 08:33 Drug: Zofran (Ondansetron) 4 mg Route: IVP; Site: right antecubital; hb 11:12 Follow up: Response: No adverse reaction; Nausea is decreased ss 11:23 Drug: [place] (HYDROcodone-acetaminophen) (7.5 mg-325 mg) 1 tabs Route: PO; ss 12:57 Follow up: Response: No adverse reaction; Pain is decreased ss Disposition: 02/07/21 08:56 Hospitalization ordered by Greg Diop for Observation. Preliminary diagnosis are Altered mental status, unspecified, Headache. - Bed requested for Telemetry/MedSurg (observation). - Status is Observation. ss - Condition is Fair. - Problem is new. - Symptoms have improved. NIH Stroke Scale - NIH Stroke Score Date: 02/07/2021 Time: 06:30 Total Score = 8 1a. Level of Consciousness (LOC) - 0(Alert) 1b. Level of Consciousness (LOC) (Year \\T\\ Age) - 0(Both) 1c. LOC Commands (Open \\T\\ Closes Eyes/Abrasive Mixer) - 0(Both) 2. Best Gaze (Lateral Gaze Paresis) - 0(Normal) 3. Visual Field Loss - 0(No visual loss) 4. Facial Palsy - 0(Normal) 5a. Left Arm: Motor (10-second hold) - 2(Drift, some effort against gravity) 5b. Right Arm: Motor (10-second hold) - 2(Drift, some effort against gravity) 6a. Left Leg: Motor (5-second hold - always test supine) - 2(Drift, some effort against gravity) 6b. Right Leg: Motor (5-second hold - always test supine) - 1(Drift) 7. Limb Ataxia (finger/nose \\T\\ heel/kruger - test with eyes open) - 0(Absent) 8. Sensory Loss (pinprick arms/legs/face) - 0(Normal) 9. Best Language: Aphasia (description/naming/reading) - 1(Mild to moderate aphasia) 10. Dysarthria (speech clarity - read or repeat words) - 0(Normal) 11. Extinction and Inattention (visual/tactile/auditory/spatial/personal) - 0(No abnormality) Initials: ea Signatures: Dispatcher [employer] EDMS Julio César Resendez MD MD kdr Ballard, Brenda, RN RN bb Nieto, Roman, MD MD rn Martinez, Lul em1 Fatou Rice RN RN Mariella Lopez, BARRY RN Laith Blue RN RN sf Corrections: (The following items were deleted from the chart) 09:43 09:15 CORONAVIRUS+MR.ABRAHAM.DARLEENZ ordered. EDMS EDMS 11:21 08:56 Hospitalization Ordered by Greg Diop DO for Observation. Preliminary em1 diagnosis is Altered mental status, unspecified; Headache. Bed requested for Telemetry/MedSurg (observation). Status is Observation. Condition is Fair. Problem is new. Symptoms have improved. kdr 12:57 11:21 02/07/2021 08:56 Hospitalization Ordered by Greg Diop DO for ss Observation. Preliminary diagnosis is Altered mental status, unspecified; Headache. Bed requested for Telemetry/MedSurg (observation). Status is Observation. Condition is Fair. Problem is new. Symptoms have improved. em1
--- NOTE | 2021-02-07 08:57 | ER ---
Nurse's Notes [facility] Name: Chela Mcdermott Age: 35 yrs Sex: Female : 1985 Arrival Date: 02/07/2021 Time: 06:18 Bed 4 Private MD: Diagnosis: Altered mental status, unspecified;Headache Presentation: 02/07 06:25 Chief complaint: Spouse and/or significant other states: pt went to bed at approx 0100 bb this morning complaining of a headache and when he woke up at 0600 pt was shaking and unable to talk. Coronavirus screen: At this time, the client does not indicate any symptoms associated with coronavirus-19. Ebola Screen: No symptoms or risks identified at this time. Initial Sepsis Screen: Does the patient meet any 2 criteria? No. Patient's initial sepsis screen is negative. Does the patient have a suspected source of infection? No. Patient's initial sepsis screen is negative. Risk Assessment: Do you want to hurt yourself or someone else? Unable to obtain. Onset of symptoms was February 07, 2021. 06:25 Method Of Arrival: Wheelchair bb 06:25 Acuity: JESUS 2 bb Triage Assessment: 06:56 Neuro: Level of Consciousness is awake, alert, obeys commands, Oriented to person, ea place, situation, Head Refrigeration Engineer are equal bilaterally Facial symmetry appears normal, 06:56 General: Appears uncomfortable, Behavior is crying, restless. Pain: Complains of pain ea in forehead, right frontal area, right temporal area and right side of forehead. Respiratory: Airway is patent Respiratory effort is even, unlabored, Respiratory pattern is regular, symmetrical. Derm: Skin is pink, warm \T\ dry. Historical: - Allergies: 06:28 Morphine; bb 06:28 Sulfa (Sulfonamide Antibiotics); bb - Home Meds: 06:28 Adderall XR 30 mg Oral cp24 1 cap once daily [Active]; aspirin 325 mg Oral tab 1 tab bb twice a day [Active]; hydrocodone-acetaminophen 10-325 mg Oral tab 1 tab every 4 hours [Active]; Lyrica 75mg Oral 2 times per day [Active]; Plaquenil Oral [Active]; Valium 5 mg Oral tab 1 tab 3 times per day [Active]; - PMHx: 06:28 APLS; Lupus; PE; Suprascapular neuropathy; SVT; bb - PSHx: 06:28 1 ovary and tube removed; adnoid removed; Tonsillectomy; Cholecystectomy; Appendectomy; bb - Immunization history:: Adult Immunizations unknown. - Social history:: Smoking status: unknown. - Family history:: not pertinent. - Hospitalizations: : No recent hospitalization is reported. Screenin:41 Abuse screen: Denies threats or abuse. Nutritional screening: No deficits noted. ea Tuberculosis screening: No symptoms or risk factors identified. Fall Risk None identified. 06:59 The patient has not been NPO before screening. The patient is alert, able to follow ea commands. speech is garbled garbled speech The patient does not exhibit difficulty understanding words. The patient is able to swallow own secretions with no drooling or need for suction. Patient tolerated one teaspoon of water. No drooling, immediate coughing, gurgling, or clearing of the throat was noted. The patient tolerated 90mL of water. No drooling, immediate coughing, gurgling, or clearing of the throat was noted. The patient passed the bedside swallow screening. Oral medications may be given as ordered. Contact Physician for further diet orders. Assessment: 06:25 General: Appears uncomfortable, Behavior is fussy, restless. Pain: Complains of pain in sf right posterior neck. Neuro: Level of Consciousness is awake, alert, obeys commands, Oriented to unable to obtain, garbled speech. Moves all extremities. Speech garbled. Facial symmetry appears normal, Intact. Cardiovascular: No deficits noted. Patient's skin is warm and dry. Respiratory: No deficits noted. Airway is patent Respiratory effort is even, unlabored, Respiratory pattern is regular, symmetrical. GI: No signs and/or symptoms were reported involving the gastrointestinal system. : No signs and/or symptoms were reported regarding the genitourinary system. Derm: No signs and/or symptoms reported regarding the dermatologic system. 06:34 Reassessment: Patient and/or family updated on plan of care and expected duration. Pain ea level reassessed. Pt at CT, transferred without assist from stretcher to CT table, tolerated well. 06:54 Reassessment: FSB mg/dL. 07:34 Reassessment: Patient appears in no apparent distress at this time. No changes from hb previously documented assessment. Patient and/or family updated on plan of care and expected duration. Pain level reassessed. 08:30 Reassessment: Patient appears in no apparent distress at this time. Patient and/or ss family updated on plan of care and expected duration. Pain level reassessed. Patient is alert, oriented x 3, equal unlabored respirations, skin warm/dry/pink. Patient states feeling better. Patient states symptoms have improved. 09:30 Reassessment: Patient appears in no apparent distress at this time. No changes from ss previously documented assessment. Patient and/or family updated on plan of care and expected duration. Pain level reassessed. 11:00 Reassessment: No changes from previously documented assessment. Neuro: Level of ss Consciousness is awake, alert, obeys commands, Oriented to person, place, time, situation, Head Refrigeration Engineer are equal bilaterally Moves all extremities. Full function Speech is normal, Facial symmetry appears normal. Respiratory: Respiratory effort is even, unlabored, Respiratory pattern is regular, symmetrical. 12:36 Reassessment: Report given to BARRY Granados. Vital Signs: 06:25 BP 163 / 103; Pulse 87; Resp 16 S; Temp 98(O); Pulse Ox 99% on R/A; bb 07:34 BP 113 / 97; Pulse 96; Resp 17; Pulse Ox 98% on R/A; hb 09:30 BP 133 / 92; Pulse 70; Resp 16; Pulse Ox 100% on R/A; ss 10:00 BP 124 / 72; Pulse 70; Resp 15; Pulse Ox 99% on R/A; ss 12:00 BP 124 / 88; Pulse 60; Resp 16; Pulse Ox 97% on R/A; Pain 5/10; ss NIH Stroke Scale Scores: 06:30 NIHSS Score: 8 ea ED Course: 06:18 Patient arrived in ED. cl3 06:21 Faheem Palmer MD is Attending Physician. rn 06:21 Laith Blue RN is Primary Nurse. sf 06:27 Triage completed. bb 06:28 Arm band placed on Patient placed in an exam room, on a stretcher, on cardiac/vascular sonographer, bb on pulse oximetry. Family accompanied patient. 06:30 Inserted saline lock: 20 gauge in right antecubital area, using aseptic technique. sf 06:31 CT Stroke Brain w/o Contrast Sent. sf 06:40 Initial lab(s) drawn, by asset availability leader, sent to lab. sf 06:41 Patient has correct armband on for positive identification. Bed in low position. Call ea light in reach. 06:42 CT Stroke Brain w/o Contrast In Process Unspecified. EDMS 06:47 ETOH Level Sent. sf 06:50 EKG done, by ED staff, reviewed by Faheem Palmer MD. sf 06:57 X-ray(s) taken. sf 07:05 Stroke CXR 1 View In Process Unspecified. EDMS 07:12 Report given to BARRY Wolff and BARRY Lainez. sf 07:18 Attending Physician role handed off by Faheem Palmer MD kdr 07:18 Julio César Resendez MD is Attending Physician. kdr 08:56 Greg Diop DO is Hospitalizing Provider. kdr 12:57 No provider procedures requiring assistance completed. Patient admitted, IV remains in ss place. Administered Medications: 06:40 Drug: SOLU-Medrol 125 mg Route: IVP; Site: right antecubital; sf 11:13 Follow up: Response: No adverse reaction ss 06:40 Drug: Zofran (Ondansetron) 4 mg Route: IVP; Site: right antecubital; sf 11:12 Follow up: Response: No adverse reaction ss 06:41 Drug: Demerol 50 mg Route: IVP; Site: right antecubital; sf 11:12 Follow up: Response: No adverse reaction; Pain is decreased ss 08:33 Drug: Zofran (Ondansetron) 4 mg Route: IVP; Site: right antecubital; hb 11:12 Follow up: Response: No adverse reaction; Nausea is decreased ss 11:23 Drug: [place] (HYDROcodone-acetaminophen) (7.5 mg-325 mg) 1 tabs Route: PO; ss 12:57 Follow up: Response: No adverse reaction; Pain is decreased Outcome: 08:56 Decision to Hospitalize by Provider. kdr 12:57 Patient left the ED. ss 12:57 Admitted to Tele accompanied by tech, via wheelchair, with chart, Report called to carlos Granados RN 12:57 Condition: good 12:57 Instructed on the need for admit. NIH Stroke Scale - NIH Stroke Score Date: 02/07/2021 Time: 06:30 Total Score = 8 1a. Level of Consciousness (LOC) - 0(Alert) 1b. Level of Consciousness (LOC) (Year \T\ Age) - 0(Both) 1c. LOC Commands (Open \T\ Closes Eyes/Coil Assembler) - 0(Both) 2. Best Gaze (Lateral Gaze Paresis) - 0(Normal) 3. Visual Field Loss - 0(No visual loss) 4. Facial Palsy - 0(Normal) 5a. Left Arm: Motor (10-second hold) - 2(Drift, some effort against gravity) 5b. Right Arm: Motor (10-second hold) - 2(Drift, some effort against gravity) 6a. Left Leg: Motor (5-second hold - always test supine) - 2(Drift, some effort against gravity) 6b. Right Leg: Motor (5-second hold - always test supine) - 1(Drift) 7. Limb Ataxia (finger/nose \T\ heel/kruger - test with eyes open) - 0(Absent) 8. Sensory Loss (pinprick arms/legs/face) - 0(Normal) 9. Best Language: Aphasia (description/naming/reading) - 1(Mild to moderate aphasia) 10. Dysarthria (speech clarity - read or repeat words) - 0(Normal) 11. Extinction and Inattention (visual/tactile/auditory/spatial/personal) - 0(No abnormality) Initials: ea Signatures: Dispatcher [employer] EDJulio César Spears MD MD kdr Ballard, Brenda, RN RN Faheem Stewart MD MD rn Smirch, Shelby, RN RN ss Baxter, Heather, RN RN hb Antunez, Elena, RN RN ea Lewis, Charde cl3 Laith Blue RN RN sf Corrections: (The following items were deleted from the chart) 06:47 06:[address]-STROKE BRAIN W/O CONTRAST+CT.TAINA.GEREMIAS. sf sf 06:55 06:34 Reassessment: Patient and/or family updated on plan of care and expected ea duration. Pain level reassessed. Pt at CT, transferred from stretcher to CT table, tolerated well. ea
[2021-02-07 09:25] LABS: Urine Specific Gravity/Preg >1.030 (1.005-1.030)
--- NOTE | 2021-02-07 09:30 | RAD REPORT ---
EXAM DESCRIPTION: CT - Ct Stroke Brain Wo Cont - 02/07/2021 6:42 am CLINICAL HISTORY: AMS, possible seizure, head pain TECHNIQUE: Axial computed tomography images of the head/brain without intravenous contrast. Sagitt al and coronal reformatted images were created and reviewed. This CT exam was performed using one o r more of the following dose reduction techniques: automated exposure control, adjustment of the mA and/or kV according to patient size, and/or use of iterative reconstruction technique. COMPARISON: No relevant prior studies available. FINDINGS: Limitations: None. Brain: There is an approximate 1.2 x 1.0 x 0.7 cm dural calcification left parafalcine anterior c onvexity could be meningioma. Appearance chronic and of doubtful significance. No edema. The br ain appears normal in density without hemorrhage, mass or edema. Midline shift: None. Ventricles: No abnormality noted. Bones/joints: No acute fracture or osseous destruction. Soft tissues: Visualized portions appear normal. Vasculature: No acute abnormality noted. Sinuses: No layering fluid in the visualized portions of the paranasal sinuses. Mastoid air cells: No mastoid effusion. Orbits: Visualized portions appear normal. IMPRESSION: No acute change in the brain. Electronically signed by: Breana Leon MD 02/07/2021 7:36 AM CDT Due to temporary technical issues with the PACS/Fluency reporting system, reports are being signed by the in house radiologists without review as a courtesy to insure prompt reporting. The interpreting radiologist is fully responsible for the content of the report.
[2021-02-07 10:17] LABS: Barbiturates NEGATIVE (NEGATIVE); Benzodiazepines POSITIVE (NEGATIVE); Cocaine NEGATIVE (NEGATIVE); METHAMPHETAM POSITIVE (NEGATIVE); Methadone NEGATIVE (NEGATIVE); Opiates POSITIVE (NEGATIVE); Phencyclidine NEGATIVE (NEGATIVE); THC Cannibis POSITIVE (NEGATIVE)
[2021-02-07] MEDS ORDERED: HYDROCODONE/APAP 7.5/325 MG TAB ONE (11:37)
[2021-02-07] MEDS ORDERED: HYDROCODONE/APAP 7.5/325 MG TAB PO PRN (13:13)
[2021-02-07] MEDS ORDERED: DIAZEPAM 5 MG TABLET PO PRN (13:13)
[2021-02-07] MEDS ORDERED: ACETAMINOPHEN 500 MG TAB PO PRN (13:13)
[2021-02-07 14:01] VITALS: BMI 23.3
--- NOTE | 2021-02-07 16:25 | RAD REPORT ---
EXAM DESCRIPTION: MRI - MRA Head Wo Cont - 02/07/2021 4:04 pm CLINICAL HISTORY: Seizure, stroke COMPARISON: None. TECHNIQUE: Axial and coronal 3D [id number] image acquisition was performed. 3D rotational images were generated with source and reconstruction images reviewed. Horizontal and vertical axis rotation al views generated using MIP protocol. FINDINGS: No aneurysm or vascular malformation identified. No vasculitis or other diffuse vascular p rocess identifiable. No named branch occlusion or focal stenosis identifiable. Patient has a large po sterior communicating artery on the left providing the left BUNK HOUSE WORKER supply. This is a normal anatomic vero iant. Basilar artery is small, not unexpected given the large left posterior communicating artery. In ternal carotid arteries without suspicious finding. IMPRESSION: MRA head examination shows no acute or suspicious finding.
[2021-02-07] MEDS: NA CHLORIDE 0.9% 1,000 ML with POTASSIUM CL 10 MEQ IV SCH ×2 (16:38)
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
--- NOTE | 2021-02-07 17:02 | RAD REPORT ---
EXAM DESCRIPTION: MRI - Brain W/Wo Cont - 02/07/2021 4:04 pm CLINICAL HISTORY: AMS; possible seizure, possible hemagioma COMPARISON: MRA Head Wo Cont dated 02/07/2021; Ct Stroke Brain Wo Cont dated 02/07/2021; MRA Neck W/Wo C ont dated 02/07/2021 TECHNIQUE: Sagittal and axial T1-weighted images were obtained. Axial PD/heavily T2-weighted and T2- FLAIR images were obtained along with axial DWI/ADC mapping sequences. Coronal heavily T2 weighted s equence obtained. Axial and coronal post-contrast T1-weighted images were also obtained. A 14 ml Mul tihance contrast following utilized. FINDINGS: No intracranial hemorrhage, mass or acute infarction. There is no edema or shift of midli ne structures. No extra-axial fluid collections. Foster-matter/white matter junction is preserved. Sig nal voids are seen as a normal finding in the major intracranial vessels. No developmental abnormali ty or heterotopic foster matter. No suspicion for a vascular malformation. Post-contrast images show normal enhancement. No dural thickening. Mastoid air cells and paranasal sinuses are clear. IMPRESSION: Negative contrast enhanced MRI of the Brain.
--- NOTE | 2021-02-07 17:04 | RAD REPORT ---
EXAM DESCRIPTION: MRI - MRA Neck W/Wo Cont - 02/07/2021 4:04 pm CLINICAL HISTORY: AMS, stroke-like symptoms, seizure COMPARISON: MRI brain same date, MRA head same date TECHNIQUE: MR angiography of the cervical vasculature performed. Coronal imaging plane acquisition u tilized. A 14 MultiHance contrast volume was utilized. Coronal reformatted images were generated and reviewed. Vertical axis 3D rotational projections obtained using maximum intensity projection protoco l. FINDINGS: Aortic arch is 3 vessel configuration with no origins stenosis. Vertebral arteries are cod ominant. No origins stenoses. There is no dissection, stenosis, atherosclerotic change or other vascu lar abnormality identifiable. IMPRESSION: Negative MRA neck examination.
--- NOTE | 2021-02-07 17:06 | RAD REPORT ---
EXAM DESCRIPTION: US - CP - 02/07/2021 4:36 pm CLINICAL HISTORY: AMS COMPARISON: MRA Neck W/Wo Cont dated 02/07/2021 TECHNIQUE: Real-time sonographic evaluation of bilateral carotid and vertebral systems was performed . Foster scale and Doppler interrogation were performed with waveform tracing bilaterally. FINDINGS: Normal high resistance waveforms are noted in both external carotid arteries. The common c arotid arteries and internal carotid arteries show normal low resistance waveforms. Very minimal plaquing changes are present without significant luminal narrowing on visual inspection. No dissection changes are present. Peak systolic and end diastolic velocity values and the ICA/CCA r atios are in the non-hemodynamically significant range. Antegrade flow seen in both vertebral arteries. Velocity values and ratios were recorded and are retained in the patient's imaging records. IMPRESSION: No significant atherosclerotic changes noted. No evidence of a hemodynamically significant stenosis.
[2021-02-07] MEDS: ONDANSETRON 4 MG/2 ML VIAL IV PRN (17:17)
--- NOTE | 2021-02-07 23:23 | CON ---
Date of Consultation: 02/07/2021 Reason For Consultation: Possible seizure. History Of Present Illness: This is a 35-year-old lady with history of lupus/mixed connective tissue disorder, who was in her usual state of health really until this morning after having difficulty sle eping because she had started taking prednisone 2 days prior for reasons somewhat unclear, but the tana uriarte states she thought like her lupus might have been more problematic. Her found her to [facility] shaky and incoherent in the morning. He was able to get her out of bed and help her ambulate to e couch and get her dressed, but she had difficulty speaking and had tremulousness to the arms and e legs. She was incontinent. She did not bite her tongue. He got her dressed. He brought her to [facility] Emergency Department, evaluation there was largely unremarkable other than presence of alcohol at 7 o'clock in the morning with a level of 16 and a drug screen that is positive for multiple substance s, amphetamines and benzodiazepines and opiates withdrawal prescription substances that the patient r eceives as well as THC. She had a CT scan that demonstrates an area of calcification along the conve xity and left parafalcine. On MRI, it does not enhance. It is I think just falx calcification and n ot anything particularly ominous. She is well back to her baseline now. Brain MRI is normal. MRA i s normal. Carotid is normal. The patient did have some difficulty speaking, but it is all resolved at this juncture. There was a question of a seizure. EEG has been ordered, but is still pending. C onsultation was requested. Past Medical History: As alluded to. Home Medications: Plaquenil, Adderall, [place], and Valium. Allergies: SULFA AND MORPHINE. Social History: . Normally independent with activities of daily living. Family History: Noncontributory. The patient does smoke. Review of Systems: General: Good health. Eyes: Negative. Ears, Nose, Throat: No dysarthria. Cardiovascular: Negative. Pulmonary: The patient has pulmonary nodules that have been noted on prior exams. GI: Negative. : Negative. Musculoskeletal: Arthralgias, neck pain. Neurologic: As noted. Psychiatric: Negative. Endocrine: Negative. Hematologic: Negative. Physical Examination: Vital Signs: Temperature 97.4, pulse 68, respirations 18, blood pressure 112/68. General: She is awake, alert, oriented to time, person, place, and situation. HEENT: Pupils equal, round, reactive. Ocular motion full. Visual multani full. Facial strength and sensation normal. Tongue protrudes evenly. Soft palate elevates symmetrically bilaterally. No ton ladi laceration. Extremities: Strength full. Sensation intact. Reflexes 1/4, symmetric. Toes are downgoing. Cereb ellar exam demonstrates no ataxia. Pertinent Laboratory Data: Imaging as noted. White count was 11. PT, PTT normal. Creatinine myranda l. Potassium 3.3. Drug screen as alluded to. SARS negative. Impression: Convulsions, altered mental status, possibly toxic metabolic. Discussion: The patient has multiple psychoactive substances that are chronic and the presence of th e prednisone as well as some sleep deprivation may have potentially incited whatever occurred. We wi ll complete the workup with EEG. If it is unremarkable and I do not feel particularly strongly that the patient should go home on an anticonvulsant as medications like that tend to have a propensity to follow the patient for prolonged periods of time and that time frame of treatment with anticonvulsan ts empirically can often be quite drawn-out. Thank you for the consult. We will continue to follow with you. LILLY/DORIAN Voice ID: [id number] Report ID: [id number]
[2021-02-08 05:05] LABS: BUN Blood Urea Nitrogen 9 mg/dL (7-18); Bicarbonate 26 mmol/L (21-32); Glucose Level 82 mg/dL (74-106); Potassium 3.4 mmol/L (3.5-5.1); Sodium Level 141 mmol/L (136-145); Thyroid Stimulating Hormone 0.451 uIU/mL (0.360-3.740)
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
[2021-02-08 08:23] VITALS: BP 142/80; TEMP 98.4
[2021-02-08] MEDS: NA CHLORIDE 0.9% 1,000 ML with POTASSIUM CL 10 MEQ IV SCH ×2 (08:33)
[2021-02-08 08:39] VITALS: O2SAT 99
[2021-02-08] MEDS: ONDANSETRON 4 MG/2 ML VIAL IV PRN (08:45)
[2021-02-08] MEDS ORDERED: HYDROXYCHLOROQUINE 200MG TAB PO SCH (09:00)
[2021-02-08] MEDS ORDERED: FOLIC ACID 1 MG TABLET PO SCH (09:00)
[2021-02-08] MEDS ORDERED: POTASSIUM CL SA 10 MEQ TAB PO ONE (09:00)
[2021-02-08] MEDS ORDERED: ENOXAPARIN 40 MG/0.4 ML SQ SCH (09:00)
[2021-02-08] MEDS ORDERED: ASPIRIN EC 81 MG TAB PO SCH (09:00)
[2021-02-08] MEDS ORDERED: THIAMINE HCL 100 MG TABLET PO SCH (09:00)
--- NOTE | 2021-02-11 08:36 | ECHO ---
HEIGHT: 5 ft 3 in WEIGHT: 132 lb 0 oz DATE OF STUDY: 02/07/[address]: Greg Diop DO 2-DIMENSIONAL: YES M.MODE: YES DOPPLER: YES COLOR FLOW: YES TDS: NO PORTABLE: NO DEFINITY: NO BUBBLE STUDY: NO DIAGNOSIS: ALTERED MENTAL STATIS CARDIAC HISTORY: CATHERIZATION: YES SURGERY: NO PROSTHETIC VALVE: NO PACEMAKER: NO MEASUREMENTS (cm) DIASTOLIC (NORMALS) SYSTOLIC (NORMALS) IVSd 0.8 (0.6-1.2) LA Diam 2.4 (1.9-4.0) LVEF 59% LVIDd 3.6 (3.5-5.7) LVIDs 2.5 (2.0-3.5) %FS 31% LVPWd 1.0 (0.6-1.2) Ao Diam 2.4 (2.0-3.7) 2 DIMENSIONAL ASSESSMENT: RIGHT ATRIUM: NORMAL LEFT ATRIUM: NORMAL RIGHT VENTRICLE: NORMAL LEFT VENTRICLE: NORMAL TRICUSPID VALVE: NORMAL MITRAL VALVE: NORMAL PULMONIC VALVE: NORMAL AORTIC VALVE: NORMAL PERICARDIAL EFFUSION: NONE AORTIC ROOT: NORMAL LEFT VENTRICULAR WALL MOTION: NORMAL DOPPLER/COLOR FLOW: NORMAL COMMENTS: NORMAL LEFT VENTRICULAR EJECTION FRACTION 55-60%. NORMAL WALL MOTION. NORMAL RIGHT VENTRICULAR SIZE AND FUNCTION. TECHNOLOGIST: Coco HYDE
--- NOTE | 2021-02-11 11:28 | EEG ---
CHART: [id number] TEST ID#: [id number] DATE OF STUDY: 02/08/2021 THE EEG WAS RECORDED PORTABLE IN THE PATIENT'S ROOM ON A 17 CHANNEL MACHINE. ELECTRODES WERE APPLIED IN THE USUAL MANNER USING THE INTERNATIONAL 10-20 SYSTEM. THE WAKING BACKGROUND RHYTHM IN THIS RECORD CONSISTS OF VERY WELL DEVELOPED AND WELL ORGANIZED WAVES OF 10 HZ., MAXIMAL IN THE POSTERIOR HEAD REGIONS WHICH ATTENUATE NORMALLY WITH EYE OPENING. ABUNDANT LOW AMPLITUDE FAST ACTIVITY OF 20-30 HZ IS NOTED. THERE ARE NO FOCAL OR LATERALIZING FEATURES. NO EPILEPTIFORM ACTIVITY APPEARS. SLEEP OCCURRED NATURALLY. NORMAL SLEEP PATTERNS ARE PRESENT. HYPERVENTILATION WAS PERFORMED FAIRLY WELL AND PRODUCED NO SIGNIFICANT CHANGE. PHOTIC STIMULATION PRODUCED GOOD DRIVING BILATERALLY. IMPRESSION: NORMAL EEG FOR THE AGE OF THE PATIENT IN [place], DROWSINESS AND SLEEP.
[2021-02-13 15:21] LABS: Urine Blood Negative (Negative); Urine Glucose Negative (Negative); Urine Protein Negative (Negative); Urine Specific Gravity >=1.030 (1.005-1.030); Urine pH 5.5 (5.0-7.0)
== END 2021-02-08 12:49 | disposition home or self-care (01) | DRG 93 ==
LOC: ER 06:16 → ERHOLD 10:52 → 2ND 12:31 → OBSVTOIN 02-08 08:25
PROVIDERS: ADMIT Family Medicine; ATTEND Family Medicine
DX: G92 Toxic encephalopathy (principal); F98.8 Other specified behavioral and emotional disorders with onset usually occurring in childhood and adolescence; E86.0 Dehydration; M32.9 Systemic lupus erythematosus, unspecified; F17.200 Nicotine dependence, unspecified, uncomplicated; R56.9 Unspecified convulsions; Z88.5 Allergy status to narcotic agent; Z88.1 Allergy status to other antibiotic agents; Z79.82 Long term (current) use of aspirin; Z79.899 Other long term (current) drug therapy; Z86.711 Personal history of pulmonary embolism; Z90.49 Acquired absence of other specified parts of digestive tract; Z98.51 Tubal ligation status; Z20.822 Contact with and (suspected) exposure to COVID-19
CPT/HCPCS: 36415; 70450; 70544; 70549; 70553; 71045; 80048; 80307; 80320; 81003; 81025; 82550; 82947; 83735; 84439; 84443; 85025; 85610; 85730; 93005; 93306; 93880; 95819; 96374; 96375; 99285; A9577; G0378; J1650; J2175; J2405; J2930; J3480; J7030; U0003